=== PATIENT | female | born 1965 | race Caucasian/White ===

== ENCOUNTER 2018-01-31 15:28 | Emergency (ER) | payer BC ==
[2018-01-31] MEDS ORDERED: ASPIRIN 81 MG CHEWABLE TABLET ONE (16:42)
[2018-01-31] MEDS ORDERED: FENTANYL CITR 100 MCG/2 ML ONE (16:42)
[2018-01-31] MEDS ORDERED: ONDANSETRON 4 MG/2 ML VIAL ONE (16:43)
--- NOTE | 2018-01-31 16:44 | RAD REPORT ---
EXAM DESCRIPTION: RAD - Chest Single View - 01/31/2018 4:33 pm CLINICAL HISTORY: Chest pain. COMPARISON: None. FINDINGS: Portable technique limits examination quality. The lungs are grossly clear. The heart is normal in size. No displaced fractures. IMPRESSION: No acute intrathoracic process suspected.
[2018-01-31 16:56] LABS: Absolute Lymphocytes (CBC) 2.3 K/uL (0.7-4.9); Absolute Monocytes 0.7 K/uL (0.1-1.3); Absolute Neutrophil 9.5 K/uL (1.8-8.0); Basophils % 0.4 % (0-1.3); Eosinophils % 1.6 % (0-4.4); Hematocrit 43.8 % (36.0-45.0); Lymphocytes % 18.4 % (15.3-44.8); MCH 29.5 pg (27.0-35.0); MCV 87.5 fL (80-100); MPV 9.2 fL (7.6-11.3); Monocytes % 5.3 % (3.3-12.3); RBC Red Blood Cell Count 5.01 M/uL (3.86-4.86)
[2018-01-31 16:57] LABS: Protime INR 1.13
[2018-01-31 16:58] LABS: Glucose Level 186 mg/dL (65-120)
[2018-01-31 17:04] LABS: ALT/SGPT 28 IU/L (10-60); AST/SGOT 26 IU/L (10-42); Albumin 4.1 g/dL (3.2-5.5); Alkaline Phosphatase 101 IU/L (42-121); BUN Blood Urea Nitrogen 10 mg/dL (6-20); Bilirubin Direct 0.1 mg/dL (0-0.2); Bilirubin Total 0.6 mg/dL (0.3-1.2); Magnesium 1.8 mg/dL (1.8-2.5); Protein, Total 7.5 g/dL (6.0-8.3)
[2018-01-31 17:05] LABS: Bicarbonate 35 mEq/L (21-31); Sodium Level 136 mEq/L (135-145)
[2018-01-31 17:08] LABS: Potassium 2.9 mEq/L (3.6-5.0)
--- NOTE | 2018-01-31 18:57 | RAD REPORT ---
EXAM DESCRIPTION: CT - Angio Aorta For Dissection - 01/31/2018 6:48 pm CLINICAL HISTORY: Chest pain radiating to the back. COMPARISON: 04/10/2016 TECHNIQUE: CT angiography of the aorta was performed with volume rendering. All CT scans are performed using dose optimization technique as appropriate and may include automated exposure control or mA/KV adjustment according to patient size. FINDINGS: A left aortic arch is present with normal branching pattern of the great vessels.No acute aortic finding is seen such as aneurysm, penetrating ulcer or dissection. The celiac axis, SMA, MELISSA and renal arteries are widely patent. No evidence of pulmonary embolism. The lungs are clear. The liver demonstrates no focal mass or biliary dilatation.A diffuse fatty infiltration pattern is no marianna.The spleen, pancreas, adrenal glands and kidneys are within normal limits for arterial phase imag ing. No bowel obstruction, free fluid or abscess.Small fat containing umbilical hernia.No pathologic enlar ged lymphadenopathy identified. Mild to moderate degenerative change lower lumbar spine. IMPRESSION: No acute aortic finding is demonstrated. Diffuse fatty infiltration.
[2018-01-31] MEDS ORDERED: POTASSIUM CL SA 10 MEQ TAB PO ONE (19:11)
--- NOTE | 2018-01-31 19:38 | ER ---
Nurse's Notes [facility] Name: Lila Harry Age: 53 yrs Sex: Female : 1965 Arrival Date: 01/31/2018 Time: 15:29 Bed 25 Private MD: Diagnosis: Chest pain, unspecified Presentation: 01/31 15:35 Presenting complaint: Patient states: I have had chest pain since Thursday and now it is la1 getting worse, radiating to my back and left side. I was at the grocery store and became very diaphoretic and I have been nauseous. I have a family hx of aortic aneurysm. Transition of care: patient was not received from another setting of care. Onset of symptoms was January 31, 2018. Initial Sepsis Screen: Does the patient meet any 2 criteria? No. Patient's initial sepsis screen is negative. Does the patient have a suspected source of infection? No. Patient's initial sepsis screen is negative. Care prior to arrival: None. 15:35 Method Of Arrival: Ambulatory la1 15:35 Acuity: ANITA 2 la1 Historical: - Allergies: 15:37 Codeine (Upset stomach); la1 - PMHx: 15:37 Depression; Diabetes - NIDDM; GERD; Hypertension; la1 - Immunization history:: Adult Immunizations up to date. - Social history:: Smoking status: Patient/guardian denies using tobacco. Screenin:00 Abuse screen: Denies threats or abuse. Denies injuries from another. Nutritional kr2 screening: No deficits noted. Tuberculosis screening: No symptoms or risk factors identified. Fall Risk None identified. Assessment: 16:00 General: Appears in no apparent distress. comfortable, well groomed, well developed, kr2 well nourished, Behavior is calm, cooperative, appropriate for age. Pain: Complains of pain in chest Pain radiates to back Pain currently is 4 out of 10 on a pain scale. Quality of pain is described as aching, pressure, shooting, Pain began 2-3 days ago. Is continuous, Alleviated by nothing. Neuro: Level of Consciousness is awake, alert, obeys commands, Oriented to person, place, time, situation. Cardiovascular: Heart tones S1 S2 present Capillary refill < 3 seconds in bilateral fingers Patient's skin is warm and dry. Rhythm is sinus rhythm. Respiratory: Airway is patent Respiratory effort is even, unlabored, Respiratory pattern is regular, symmetrical. GI: Abdomen is round non-distended, Patient currently denies nausea. : No signs and/or symptoms were reported regarding the genitourinary system. Denies burning with urination. EENT: Nares are clear bilaterally Oral mucosa is moist. Derm: Skin is intact, is healthy with good turgor, Skin is pink, warm \T\ dry. Musculoskeletal: Circulation, motion, and sensation intact. 17:00 Reassessment: Patient appears in no apparent distress at this time. Patient and/or kr2 family updated on plan of care and expected duration. Pain level reassessed. Patient is alert, oriented x 3, equal unlabored respirations, skin warm/dry/pink. Patient states feeling better. Patient states symptoms have improved. 17:30 Reassessment: Bilateral upper extremity blood pressures obtained and results reported kr2 to LUIS Foley. See vital signs. 18:00 Reassessment: No changes from previously documented assessment. Reassessment: Patient kr2 appears in no apparent distress at this time. Patient and/or family updated on plan of care and expected duration. Pain level reassessed. Patient is alert, oriented x 3, equal unlabored respirations, skin warm/dry/pink. Patient states feeling better. 19:00 Reassessment: No changes from previously documented assessment. kr2 Vital Signs: 15:37 BP 134 / 85; Pulse 78; Resp 19; Temp 97.6(TE); Pulse Ox 100% on R/A; Weight 102.06 kg; la1 Height 5 ft. 3 in. (160.02 cm); 16:30 BP 134 / 62; Pulse 72; Resp 17; Pulse Ox 99% on R/A; kr2 17:30 BP 122 / 70 LA; kr2 17:30 BP 136 / 62 RA; kr2 18:30 BP 116 / 77; Pulse 72; Resp 17; Pulse Ox 98% on R/A; kr2 19:30 BP 120 / 78; Pulse 80; Resp 16; Pulse Ox 99% on R/A; kr2 15:37 Body Mass Index 39.86 (102.06 kg, 160.02 cm) la1 ED Course: 15:29 Patient arrived in ED. as 15:36 Triage completed. la1 15:37 Arm band placed on right wrist. la1 15:49 Florentin Bailey PA is PHCP. jr8 15:49 Emery Lerma MD is Attending Physician. jr8 16:00 Patient has correct armband on for positive identification. Bed in low position. Call kr2 light in reach. Side rails up X2. Adult w/ patient. athletic monitor on. Pulse ox on. NIBP on. Door closed. Warm blanket given. Head of bed elevated. 16:28 Karen Mae, MALLORY is Primary Nurse. kr2 16:32 X-ray completed. Portable x-ray completed in exam room. Patient tolerated procedure ag1 well. 16:33 XRAY Chest (1 view) In Process Unspecified. EDMS 16:38 Inserted saline lock: 22 gauge in left antecubital area, using aseptic technique. Blood kr2 collected. Patient maintains SpO2 saturation greater than 95% on room air. 18:47 CT Aorta for Dissection In Process Unspecified. EDMS 18:47 CT completed. Patient moved to CT via wheelchair. Patient moved back from CT. cw1 19:09 Repeat lab(s) drawn. by me, sent to lab. Flushed left antecubital saline lock with 5 ml kr2 normal saline. 19:52 No provider procedures requiring assistance completed. IV discontinued, intact, kr2 bleeding controlled, No redness/swelling at site. Pressure dressing applied. Administered Medications: 16:48 Drug: Zofran 4 mg Route: IVP; Site: left antecubital; kr2 17:55 Follow up: Response: No adverse reaction kr2 16:49 Drug: Aspirin Chewable Tablet 324 mg Route: PO; kr2 17:56 Follow up: Response: No adverse reaction kr2 16:49 Drug: fentaNYL (PF) 50 mcg Route: IVP; Site: left antecubital; kr2 17:56 Follow up: Response: No adverse reaction; Pain is decreased kr2 19:13 Drug: Potassium Chloride 40 mEq Route: PO; kr2 19:38 Follow up: Response: No adverse reaction kr2 Outcome: 19:38 Discharge ordered by . jr8 19:52 Discharged to home ambulatory. kr2 19:52 Condition: good 19:52 Discharge instructions given to patient, family, Instructed on discharge instructions, follow up and referral plans. Demonstrated understanding of instructions, follow-up care. 19:59 Patient left the ED. kr2 Signatures: Dispatcher [employer] Katie Linda, Marita cw1 Florentin Bailey PA PA jr8 Osbaldo Child RN RN andrew1 Deepti Baltazar ag1 Karen Mae RN RN kr2
--- NOTE | 2018-01-31 19:38 | EDPHYS ---
Physician Documentation [facility] Name: Lila Harry Age: 53 yrs Sex: Female : 1965 Arrival Date: 01/31/2018 Time: 15:29 Bed 25 Private MD: ED Physician Emery Lerma HPI: 01/31 17:05 This 53 yrs old Female presents to ER via Ambulatory with complaints of Chest jr8 Pain. 17:05 The patient or guardian reports chest pain that is located primarily in the substernal jr8 area. Onset: acutely, 2 day(s) ago. The pain radiates to back. Associated signs and symptoms: Pertinent positives: diaphoresis, nausea. The chest pain is described as a pressure. Duration: The patient or guardian reports a single episode, that is still ongoing. Modifying factors: The symptoms are alleviated by rest, the symptoms are aggravated by exertion. Severity of pain: At its worst the pain was moderate in the emergency department the pain is unchanged. The patient has not experienced similar symptoms in the past. The patient has not recently seen a physician. Historical: - Allergies: 15:37 Codeine (Upset stomach); la1 - PMHx: 15:37 Depression; Diabetes - NIDDM; GERD; Hypertension; la1 - Immunization history:: Adult Immunizations up to date. - Social history:: Smoking status: Patient/guardian denies using tobacco. ROS: 17:05 ENT: Negative for injury, pain, and discharge, Neck: Negative for injury, pain, and jr8 swelling, Respiratory: Negative for shortness of breath, cough, wheezing, and pleuritic chest pain, Abdomen/GI: Negative for abdominal pain, nausea, vomiting, diarrhea, and constipation, Back: Negative for injury and pain, MS/Extremity: Negative for injury and deformity, Skin: Negative for injury, rash, and discoloration, Neuro: Negative for headache, weakness, numbness, tingling, and seizure. 17:05 Cardiovascular: Positive for chest pain, Negative for edema, orthopnea, palpitations, paroxysmal nocturnal dyspnea. Exam: 17:05 Eyes: Pupils equal round and reactive to light, extra-ocular motions intact. Lids and jr8 lashes normal. Conjunctiva and sclera are non-icteric and not injected. Cornea within normal limits. Periorbital areas with no swelling, redness, or edema. ENT: Nares patent. No nasal discharge, no septal abnormalities noted. Tympanic membranes are normal and external auditory canals are clear. Oropharynx with no redness, swelling, or masses, exudates, or evidence of obstruction, uvula midline. Mucous membranes moist. Neck: Trachea midline, no thyromegaly or masses palpated, and no cervical lymphadenopathy. Supple, full range of motion without nuchal rigidity, or vertebral point tenderness. No Meningismus. Cardiovascular: Regular rate and rhythm with a normal S1 and S2. No gallops, murmurs, or rubs. Normal PMI, no JVD. No pulse deficits. Respiratory: Lungs have equal breath sounds bilaterally, clear to auscultation and percussion. No rales, rhonchi or wheezes noted. No increased work of breathing, no retractions or nasal flaring. Abdomen/GI: Soft, non-tender, with normal bowel sounds. No distension or tympany. No guarding or rebound. No evidence of tenderness throughout. Back: No spinal tenderness. No costovertebral tenderness. Full range of motion. Skin: Warm, dry with normal turgor. Normal color with no rashes, no lesions, and no evidence of cellulitis. MS/ Extremity: Pulses equal, no cyanosis. Neurovascular intact. Full, normal range of motion. Neuro: Awake and alert, GCS 15, oriented to person, place, time, and situation. Cranial nerves II-XII grossly intact. Motor strength 5/5 in all extremities. Sensory grossly intact. Cerebellar exam normal. Normal gait. Vital Signs: 15:37 BP 134 / 85; Pulse 78; Resp 19; Temp 97.6(TE); Pulse Ox 100% on R/A; Weight 102.06 kg; la1 Height 5 ft. 3 in. (160.02 cm); 16:30 BP 134 / 62; Pulse 72; Resp 17; Pulse Ox 99% on R/A; kr2 17:30 BP 122 / 70 LA; kr2 17:30 BP 136 / 62 RA; kr2 18:30 BP 116 / 77; Pulse 72; Resp 17; Pulse Ox 98% on R/A; kr2 19:30 BP 120 / 78; Pulse 80; Resp 16; Pulse Ox 99% on R/A; kr2 15:37 Body Mass Index 39.86 (102.06 kg, 160.02 cm) la1 MDM: 15:49 Patient medically screened. jr8 19:36 The patient was given aspirin in the Emergency Department. Data reviewed: vital signs, [facility] nurses notes, lab test result(s), EKG, radiologic studies, CT scan, plain films, and as a result, I will discharge patient. Data interpreted: Pulse oximetry: on room air is 100 %. Interpretation: normal. Counseling: I had a detailed discussion with the patient and/or guardian regarding: the historical points, exam findings, and any diagnostic results supporting the discharge/admit diagnosis, lab results, radiology results, the need for outpatient follow up, a rn outpatient surgery, a family practitioner, to return to the emergency department if symptoms worsen or persist or if there are any questions or concerns that arise at home. 19:38 ED course: Patient has appointment with cardiology tomorrow . [facility] 01/31 16:04 Order name: Basic Metabolic Panel [facility] 01/31 16:04 Order name: BNP [facility] 01/31 16:04 Order name: CBC with Diff [facility] 01/31 16:04 Order name: LFT's [facility] 01/31 16:04 Order name: Magnesium; Complete Time: 17:17 [facility] 01/31 16:04 Order name: PT-INR; Complete Time: 17:00 [facility] 01/31 16:04 Order name: Troponin (emerg Dept Use Only); Complete Time: 17:17 [facility] 01/31 16:04 Order name: XRAY Chest (1 view); Complete Time: 17:00 [facility] 01/31 16:04 Order name: Basic Metabolic Panel; Complete Time: 17:17 [facility] 01/31 16:04 Order name: BNP B-Type Natriuretic Peptide; Complete Time: 17:17 [facility] 01/31 16:04 Order name: CBC with Automated Diff; Complete Time: 17:00 [facility] 01/31 16:04 Order name: Liver (Hepatic) Function; Complete Time: 17:17 [facility] 01/31 17:51 Order name: CT Aorta for Dissection; Complete Time: 18:59 [facility] 01/31 19:00 Order name: Troponin (emerg Dept Use Only); Complete Time: 19:34 [facility] 01/31 16:04 Order name: Cardiac monitoring; Complete Time: 16:28 [facility] 01/31 16:04 Order name: EKG - Nurse/Tech; Complete Time: 16:28 jr8 01/31 16:04 Order name: IV Saline Lock; Complete Time: 16:41 8 01/31 16:04 Order name: Labs collected and sent; Complete Time: 16:41 jr8 01/31 16:04 Order name: O2 Per Protocol; Complete Time: 16:28 8 01/31 16:04 Order name: O2 Sat Monitoring; Complete Time: 16: jr8 Administered Medications: 16:48 Drug: Zofran 4 mg Route: IVP; Site: left antecubital; kr2 17:55 Follow up: Response: No adverse reaction kr2 16:49 Drug: Aspirin Chewable Tablet 324 mg Route: PO; kr2 17:56 Follow up: Response: No adverse reaction kr2 16:49 Drug: fentaNYL (PF) 50 mcg Route: IVP; Site: left antecubital; kr2 17:56 Follow up: Response: No adverse reaction; Pain is decreased kr2 19:13 Drug: Potassium Chloride 40 mEq Route: PO; kr2 19:38 Follow up: Response: No adverse reaction kr2 Disposition: 02/01 09:16 Co-signature as Attending Physician, Emery Lerma MD I agree with the assessment and brianna plan of care. Disposition: 01/31/18 19:38 Discharged to Home. Impression: Chest pain, unspecified. - Condition is Stable. - Discharge Instructions: Nonspecific Chest Pain, Aspirin and Your Heart. - Medication Reconciliation Form, Thank You Letter, Antibiotic Education, Prescription Opioid Use form. - Follow up: Private Physician; When: Tomorrow; Reason: Recheck today's complaints, Continuance of care, Re-evaluation by your physician. - Problem is new. - Symptoms have improved. Signatures: Dispatcher [employer] [facility] Emery Lerma MD MD cha Roszak, Josh, PA PA jr8 Osbaldo Child RN RN andrew1 Karen Mae RN RN kr2 Corrections: (The following items were deleted from the chart) 01/31 19:38 16:04 Urine Dipstick-Ancillary ordered. jr8 kr2
--- NOTE | 2018-02-01 07:04 | EKG ---
Test Date: 2018-01-31 Test Time: 15:50:20 Belt Maker Helper: JANNIE MEASUREMENT RESULTS: Intervals: Rate: 71 WA: 154 QRSD: 88 QT: 400 QTc: 434 [place]: P: 27 WA: 154 QRS: 18 T: 25 INTERPRETIVE STATEMENTS: Normal sinus rhythm Normal ECG No previous ECG available for comparison Electronically Signed On 02-01-18 07:04:06 CDT by Mitchel Key
== END 2018-01-31 19:59 | disposition home or self-care (01) ==
LOC: ER 15:28
DX: R07.9 Chest pain, unspecified (principal); I10 Essential (primary) hypertension; Z88.5 Allergy status to narcotic agent
CPT/HCPCS: 36415; 71045; 71275; 74175; 80048; 80076; 83735; 83880; 84484; 85025; 85610; 93005; 96374; 96375; 99285; J2405; J3010; Q9967

== ENCOUNTER 2023-04-23 10:03 | Emergency (ER) | payer BC, OTHER ==
--- OUTSIDE RECORDS SUMMARY | 2023-04-23 10:12 | XMS REPORT | Continuity of Care Document ---
:1965 Author Organization [facility] t Address [address] [address] [place] [address] Care Team Providers Name Role Phone Jake Navarrete MD Primary Care Physician DADA TATE Attending Clinician Unavailable LAB47 Attending Clinician Unavailable FELI MORAN Attending Clinician Unavailable MD KALEY Attending Clinician Unavailable 1, [facility]HER[facility] TOMOGRAPHY Attending Clinician UnavailJESSICA Henry Attending Clinician Unavailable Jake Navarrete MD Attending Clinician [facility] Attending Clinician Unavailable DEMARCUS COOK Attending Clinician Unavailable Doctor Unassigned, Hilger Attending Clinician Unavailable JAKE NAVARRETE Attending Clinician Unavailable LEEROY RG Attending Clinician Unavailable Mercedes Hurley Attending Clinician MERCEDES DAVID Attending Clinician Unavailable MARICEL GALLAGHER Attending Clinician Unavailable Maricel Gallagher MD Attending Clinician Only, Ang Db Test Attending Clinician Unavailable Dawn Miller Attending Clinician DAWN ROOT Attending Clinician Unavailable Franny Rubio RN Attending Clinician Unavailable Only, Adc Pob2 Test Attending Clinician Unavailable Dion Dahl MD Attending Clinician AJAY PADILLA Attending Clinician Unavailable Unknown, Attending Attending Clinician Unavailable Ajay Alvarado Attending Clinician Valentin Tan DO Attending Clinician VALENTIN TAN Attending Clinician Unavailable Hamilton Lorenz MD Attending Clinician Lab, Ang - Db Attending Clinician Unavailable Kate TEJADA, Rachel Ledesma Attending Clinician Unavailable Renee Mcfarland Attending Clinician RENEE BENNETT Attending Clinician Unavailable HEBERT GOMEZ Attending Clinician Unavailable HEBERT GOMEZ Attending Clinician Unavailable Vamsi Gilmore MD Attending Clinician Angelia [facility] DISPATCHERGallo Stevenson Attending Clinician GALLO STILL Attending Clinician Unavailable Lab, Adc Fam Pob I Attending Clinician Unavailable Pob, Adc Lab Main Attending Clinician Unavailable GOMEZ LATHAM Attending Clinician Unavailable GOMEZ LATHAM Attending Clinician Unavailable 1, [facility] Lab Bed Attending Clinician Unavailable Gomez Latham MD Attending Clinician DERICK FLORES Attending Clinician Unavailable Violette Garay Attending Clinician Provider, [facility] Attending Clinician Unavailable Amaury Callaway MD Attending Clinician AMAURY CALLAWAY Attending Clinician Unavailable [facility] Attending Clinician Unavailable DION DAHL Attending Clinician Unavailable HAMILTON LORENZ Attending Clinician Unavailable DADA TATE Admitting Clinician Unavailable Vamsi Gilmore MD Admitting Clinician Payers Payer Name Policy Type Policy Number Effective Date Expiration Date S elida [facility] [id number] 2015 EMPLOYEE PLAN 00:00:00 [facility] 2020 9 [id number] 2022 00:00:00 Problems Condition Condition Condition Status Onset Resolution Last Treating Co mments Source Name Details Category Date Date Treatment Clinician Date Irritable Irritable Disease Active Uni vers bowel bowel 8- ity of syndrome syndrome 00:00: [place] with with 00 Medical diarrhea diarrhea Branch Internal Internal Disease Active Unive rs hemorrhoid hemorrhoid 8-27 it y of 00:00: [place] 00 Medical Branch Diverticul Diverticul Disease Active U teetee osis osis 8-27 ity of 00:00: [place] 00 Medical Branch Polyp of Polyp of Disease Active Unive rs colon, colon, 8-27 ity of unspecifie unspecif[place] of 00 Medi michell colon, colon, Branch unspecifie unspecifie d type d type Lower Lower Disease Active Univers abdominal abdominal 3-12 ity of pain pain 00:00: [place] 00 Medical Branch Fecal Fecal Disease Active Univers urgency urgency 3-12 ity of 00:00: [place] [facility] Gastroesop Gastroesop Disease Active U teetee hageal hageal 3-12 ity of reflux reflux 00:00: [place] disease disease 00 Medical without without Branch esophagiti esophagiti s s DANIELLE DANIELLE Disease Active Univers (obstructi (obstructi 1-31 it y of ve sleep ve sleep 00:00: [place] apnea) apnea) 00 Medical Branch Atypical Atypical Disease Active Unive rs chest pain chest pain 7-18 it y of 00:00: [place] 00 Medical Branch Obesity Obesity Disease Active Univers (BMI (BMI 7-18 ity of 30-39.9) 30-39.9) 00:00: [place] 00 Medical Branch Fatty Fatty Disease Active 2016-10 Univers liver liver 1- ity of 00:00: [place] 00 Medical Branch Hepatosple Hepatosple Disease Active U teetee nomegaly nomegaly 6-30 ity of 00:00: [place] [facility] Hypokalemi Hypokalemi Disease Active U sidneyers a a 6-22 ity of 00:00: [place] 00 Medical Branch Drug-induc Drug-induc Disease Active Overview : Univers ed ed 6-22 Formattin ity of pancreatit pancreatit 00:00: g of this [place] is is 00 note Medical might be Branch different from the original. From Saxenda DDD DDD Disease Active Univers (degenerat (degenerat 2- it y of varsha disc varsha disc 00:00: [place] disease), disease), 00 Medi michell cervical cervical Branch Degenerati Degenerati Disease Active 2017-0 U nivers ve ve 2- ity of arthritis arthritis 00:[place] cervical cervical Branch spine spine Drug-induc Drug-induc Disease Active 2015-10 Overview : Univers ed ed 2-16 Formattin ity of constipati constipati 00:00: g of this [place] on on 00 note Medical might be Branch different from the original. secondary to Saxenda Post-op Post-op Disease Active Univers pain pain 912 ity of 00:00: Medical Branch Type 2 Type 2 Disease Active Univers diabetes diabetes 906 ity of mellitus mellitus 00:00: [place] without without 00 Medical complicati complicati Br anch on on Absence of Absence of Disease Active U nivers menstruati menstruati 8-19 it y of on on 00:00: [place] [facility] Ovarian Ovarian Disease Active Univers mass mass 8- ity of 00:00: [place] [facility] Screening Screening Disease Active Uni vers for colon for colon 8 ity of cancer cancer 00:00: [place] [facility] Essential Essential Disease Active Uni vers hypertensi hypertensi 8-11 it y of on, benign on, benign [place] Diuretic-i Diuretic-i Disease Active U nivers nduced nduced ity of hypokalemi [place]emi [place] Depression Depression Disease Active U nivers ity of [facility] Allergies, Adverse Reactions, Alerts Allergy Allergy Status Severity Reaction(s) Onset Inactive Treating Comm ents Source Name Type Date Date Clinician LISINOPR DRUG Active COUGH Univers IL INGREDI 6 ity of 00:00: [place] 00 Medical Branch Lisinopr Drug Active Cough Univers il Intolera 04-08 ity of nce 00:00: [place] [facility] Lisinopr Drug Active Cough Alejandra il Intolera 6 Seybold nce 00:00: 00 Externa l LIRAGLUT DRUG Active Other-Cmnt Univ ers EDUARDO INGREDI 04-02 ity of 00:00: [place] 00 Medical Branch Liraglut Propensi Active Other - See pancreat i Univers eduardo ty to comments 04-02 tis ity of adverse 00:00: [place] reaction 00 Medical s Branch Liraglut Propensi Active Other pancreati Marky sey eduardo ty to 04-02 tis Seybold adverse 00:00: - reaction 00 Externa s l CODEINE DRUG Active N/V Univers INGREDI 8 ity of 00:00: [place] 00 Medical Branch LATEX DRUG Active Rash Univers INGREDI 06-01 ity of 00:00: [place] 00 Medical Branch SULFA Drug Active ITCHING Univers (SULFONA Class 06-01 ity of MIDE 00:00: [place] ANTIBIOT 00 Medical ICS) Branch Latex Propensi Active Rash Univers ty to 06-01 ity of adverse 00:00: [place] reaction 00 Medical s Branch Sulfa Propensi Active Itching Univers (Sulfona ty to 06-01 ity of mide adverse 00:00: [place] Antibiot reaction 00 Medica l ics) s Branch Codeine Propensi Active Nausea and Marky sey ty to Vomiting 06-01 Seybold adverse 00:00: - reaction 00 Externa s l Latex Propensi Active Rash Alejandra ty to 06-01 Seybold adverse 00:00: - reaction 00 Externa s l Sulfa Propensi Active Itching Alejandra Drugs ty to 06-01 Seybold adverse 00:00: - reaction 00 Externa s l Social History Social Habit Start Date Stop Date Quantity Comments Source Gender identity 2023-03-06 Identifies as Alejandra Piper - 09:21:36 female gender External (finding) Sexual orientation 2023-03-06 Heterosexual Ivy Reynosoold - 09:21:36 (finding) External Alcohol intake 2023-04-22 2023-04-22 Ex-drinker Alejandra Roldan bold - 00:00:00 00:00:00 (finding) External Tobacco use and 2023-01-08 2023-01-08 Smokeless tobacco Ke ashley Reynosoold - exposure 00:00:00 00:00:00 non-user External History of Social 2023-01-08 2023-01-08 Alejandra Piper - function 00:00:00 00:00:00 External Exposure to 2022-07-01 2022-07-11 Not sure University of SARS-CoV-2 (event) 00:00:00 09:18:00 [facility] Sex [birth year] F Alejandra Vance ybold - 00:00:00 00:00:00 External Smoking Status Start Date Stop Date Source Never smoked tobacco Alejandra Seyb old - External Medications Ordered Filled Start Stop Current Ordering Indication Dosage Frequency Signature Comments Components Source Medication Medication Date Date Medication? Clinician (SIG) Name Name Ibuprofen 0 Yes 200mg Q.25D Take 1 Ivy ey (MOTRIN) 7-12 tablet Seybold 200 MG oral 13:33: (200 mg - Tablet 53 total) by Externa mouth l every 6 hours as needed Levocetiriz 2022-0 Yes Alejandra ine 7-12 Seybold Dihydrochlo 13:33: - ride 5 MG 53 Externa oral Tablet l Venlafaxine 2022-0 Yes [id number] 100mg Take 1 K elsey HCl 100 MG 7-12 tablet Seybold oral Tablet 00:00: (100 mg - 00 total) by Externa mouth 2 l times daily Metoprolol 0 Yes [id number] 50mg Take 1 K elsey Tartrate 7-10 tablet (50 Seybo ld (LOPRESSOR) 00:00: mg total) - 50 MG oral 00 by mouth 2 Ext yeyo Tablet times l daily Venlafaxine 2022-0 2022- No 75mg Take 1 Marky sey HCl 75 MG 7-10 07-12 tablet (75 Sey bold oral Tablet 00:00: 00:00 mg total) - 00 :00 by mouth 2 Externa times l daily Ibuprofen 2022-0 Yes 200mg Q.25D Take 1 Ivy ey (MOTRIN) 5-26 tablet Seybold 200 MG oral 10:55: (200 mg - Tablet 54 total) by Externa mouth l every 6 hours as needed Levocetiriz 2022-0 Yes Alejandra ine 5-26 Seybold Dihydrochlo 10:55: - ride 5 MG 54 Externa oral Tablet l Rosuvastati 2022-0 Yes 10mg Take 1 Ivy ey n Calcium 5-15 tablet (10 Seyb old 10 MG oral 00:00: mg total) - Tablet 00 by mouth Externa at bedtime l Rosuvastati 2022-0 Yes 10mg Take 1 Ivy ey n Calcium 5-15 tablet (10 Seyb old 10 MG oral 00:00: mg total) - Tablet 00 by mouth Externa at bedtime l Ibuprofen 2022-0 Yes 200mg Q.25D Take 200 Ke lsey (MOTRIN) 3-30 mg by Seybold 200 MG oral 10:37: mouth - Tablet 22 every 6 Externa hours as l needed Levocetiriz 2022-0 Yes Alejandra ine 3-30 Seybold Dihydrochlo 10:37: - ride 5 MG 22 Externa oral Tablet l B Complex 2022-0 Yes Alejandra Vitamins (B 3-12 Seybold COMPLEX 1 00:00: - OR) 00 Externa l Pyridoxine 2022-0 Yes Alejandra HCl 3-12 Seybold (Vitamin 00:00: - B-6) 100 MG 00 Externa oral Tablet l B Complex 2022-0 Yes Alejandra Vitamins (B 3-12 Seybold COMPLEX 1 00:00: - OR) 00 Externa l Pyridoxine 2022-0 Yes Alejandra HCl 3-12 Seybold (Vitamin 00:00: - B-6) 100 MG 00 Externa oral Tablet l B Complex 2022-0 Yes Alejandra Vitamins (B 3-12 Seybold COMPLEX 1 00:00: - OR) 00 Externa l Pyridoxine 2022-0 Yes Alejandra HCl 3-12 Seybold (Vitamin 00:00: - B-6) 100 MG 00 Externa oral Tablet l hydroCHLORO 2022-0 Yes 25mg Take 1 Ivy ey thiazide 25 2-08 tablet (25 Se ybold MG oral 00:00: mg total) - Tablet 00 by mouth Externa daily l hydroCHLORO 2022-0 Yes 1{tbl} Take 1 Ke lsey thiazide 25 2-08 tablet by Sey bold MG oral 00:00: mouth - Tablet 00 daily Externa l hydroCHLORO 2022-0 Yes 25mg Take 1 Ivy ey thiazide 25 2-08 tablet (25 Se ybold MG oral 00:00: mg total) - Tablet 00 by mouth Externa daily l HYDROCHLORO 2022-0 Yes [id number] TAKE 1 U nivers THIAZIDE 25 2-08 TABLET ity of mg tablet 00:00: DAILY [address] PROMETHAZIN 2022-0 Yes [id number] TAKE FIVE Univers E-DEXTROMET 1-10 (5) ML(S) ity of [place] 00:00: [place] 4 [place] 6.25[place] TIMES Medical mg/5 mL DAILY Branch syrup NEEDED FOR COUGH. PROMETHAZIN Yes [id number] TAKE FIVE Univers E-DEXTROMET 1-10 (5) ML(S) ity of HORPHAN 00:00: [place]TH 4 [place] 6.25-[place] TIMES Medical mg/5 mL DAILY Branch syrup NEEDED FOR COUGH. glimepiride 2021-10 Yes [id number] 2mg Take 1 Univers (AMARYL) 2 2-29 tablet by ity of mg tablet 00:00: mouth [place] 00 daily with Medical breakfast. Branch glimepiride 2021-10 Yes [id number] 2mg Take 1 Univers (AMARYL) 2 2-29 tablet by ity of mg tablet 00:00: mouth [place] 00 daily with Medical breakfast. Branch glimepiride 2021-10 Yes [id number] 2mg Take 1 Univers (AMARYL) 2 2-29 tablet by ity of mg tablet 00:00: mouth [place] 00 daily with Medical breakfast. Branch Losartan 2021-10 Yes 25mg Take 1 Alejandra Potassium 2-27 tablet (25 Seyb old 25 MG oral 00:00: mg total) - Tablet 00 by mouth Externa daily l Losartan 2021-10 Yes 25mg Take 25 mg Marky sey Potassium 2-27 by mouth Seybol d 25 MG oral 00:00: daily - Tablet 00 Externa l Losartan 2021-10 Yes 25mg Take 1 Alejandra Potassium 2-27 tablet (25 Seyb old 25 MG oral 00:00: mg total) - Tablet 00 by mouth Externa daily l losartan 2021-10 Yes [id number] 25mg Take 1 Univers mg tablet 2-27 tablet by ity o f 00:00: mouth in [place] the Medical morning. Branch losartan 2021-10 Yes [id number] 25mg Take 1 Univers mg tablet 2-27 tablet by ity o f 00:00: mouth in [place] the Medical morning. Branch losartan 2021-10 Yes [id number] 25mg Take 1 Univers mg tablet 2-27 tablet by ity o f 00:00: mouth in [place] 00 the Medical morning. Branch losartan 2021-10 Yes [id number] 25mg Take 1 Univers mg tablet 2-27 tablet by ity o f 00:00: mouth in [place] 00 the Medical morning. Branch LOSARTAN 25 2021-10 Yes [id number] TAKE 1 Univers mg tablet 1-10 TABLET ity of 00:00: DAILY [place] 00 Medical Branch LOSARTAN 25 2021-10- No [id number] TAKE 1 Univers mg tablet 1-10 12-25 TABLET ity of 00:00: 00:00 DAILY [place] 00 :00 Medical Branch promethazin 2021-10 Yes [id number] 5mL Take 5 mL Univers e-dextromet 0-20 by mouth 4 it y of horphan 00:00: (four) [place] 6.25-15 00 times Medical mg/5 mL daily as Branch syrup needed for Cough. ciprofloxac 2021-10 Yes [id number] 500mg Take 1 Univers in HCl 0-20 tablet by ity of (CIPRO) 500 00:00: mouth [place] mg tablet 00 every 12 Medica l (twelve) Branch hours. predniSONE 2021-10 Yes [id number] 20mg Take 1 U nivers 20 mg 0-20 tablet by ity of tablet 00:00: mouth in [place] the Medical morning. Branch promethazin 2021-10 Yes [id number] 5mL Take 5 mL Univers e-dextromet 0-20 by mouth 4 it y of horphan 00:00: (four) [place] 6.25-15 00 times Medical mg/5 mL daily as Branch syrup needed for Cough. ciprofloxac 2021-10 Yes [id number] 500mg Take 1 Univers in HCl 0-20 tablet by ity of (CIPRO) 500 00:00: mouth [place] mg tablet 00 every 12 Medica l (twelve) Branch hours. predniSONE 2021-10 Yes [id number] 20mg Take 1 U nivers 20 mg 0-20 tablet by ity of tablet 00:00: mouth in [place] 00 the Medical morning. Branch promethazin 2021-10 Yes [id number] 5mL Take 5 mL Univers e-dextromet 0-20 by mouth 4 it y of horphan 00:00: (four) [place] 6.25-15 00 times Medical mg/5 mL daily as Branch syrup needed for Cough. ciprofloxac 2021-10 Yes [id number] 500mg Take 1 Univers in HCl 0-20 tablet by ity of (CIPRO) 500 00:00: mouth [place] mg tablet 00 every 12 Medica l (twelve) Branch hours. predniSONE 2021- Yes [id number] 20mg Take 1 U nivers 20 mg 0-20 tablet by ity of tablet 00:00: mouth in [place] 00 the Medical morning. Branch promethazin 2021-10 Yes [id number] 5mL Take 5 mL Univers e-dextromet 0-20 by mouth 4 it y of horphan 00:00: (four) [place] 6.25-15 00 times Medical mg/5 mL daily as Branch syrup needed for Cough. ciprofloxac 2021-10 Yes [id number] 500mg Take 1 Univers in HCl 0-20 tablet by ity of (CIPRO) 500 00:00: mouth [place] mg tablet 00 every 12 Medica l (twelve) Branch hours. predniSONE 2021- Yes [id number] 20mg Take 1 U nivers 20 mg 0-20 tablet by ity of tablet 00:00: mouth in [place] 00 the Medical morning. Branch promethazin 2021-10 Yes [id number] 5mL Take 5 mL Univers e-dextromet 0-20 by mouth 4 it y of horphan 00:00: (four) [place] 6.25-15 00 times Medical mg/5 mL daily as Branch syrup needed for Cough. ciprofloxac 2021-10 Yes [id number] 500mg Take 1 Univers in HCl 0-20 tablet by ity of (CIPRO) 500 00:00: mouth [place] mg tablet 00 every 12 Medica l (twelve) Branch hours. predniSONE 2021- Yes [id number] 20mg Take 1 U nivers 20 mg 0-20 tablet by ity of tablet 00:00: mouth in [place] 00 the Medical morning. Branch promethazin 2021-10 Yes [id number] 5mL Take 5 mL Univers e-dextromet 0-20 by mouth 4 it y of horphan 00:00: (four) [place] 6.25-15 00 times Medical mg/5 mL daily as Branch syrup needed for Cough. ciprofloxac 2021-10 Yes [id number] 500mg Take 1 Univers in HCl 0-20 tablet by ity of (CIPRO) 500 00:00: mouth [place] mg tablet 00 every 12 Medica l (twelve) Branch hours. predniSONE 2021- Yes [id number] 20mg Take 1 U nivers 20 mg 0-20 tablet by ity of tablet 00:00: mouth in [place] 00 the Medical morning. Branch promethazin 2021-10 Yes [id number] 5mL Take 5 mL Univers e-dextromet 0-20 by mouth 4 it y of horphan 00:00: (four) [place] 6.25-15 00 times Medical mg/5 mL daily as Branch syrup needed for Cough. ciprofloxac 2021-10 Yes [id number] 500mg Take 1 Univers in HCl 0-20 tablet by ity of (CIPRO) 500 00:00: mouth [place] mg tablet 00 every 12 Medica l (twelve) Branch hours. predniSONE 2021-10 Yes [id number] 20mg Take 1 U nivers 20 mg 0-20 tablet by ity of tablet 00:00: mouth in [place] 00 the Medical morning. Branch ciprofloxac 2021-10 Yes [id number] 500mg Take 1 Univers in HCl 0-20 tablet by ity of (CIPRO) 500 00:00: mouth [place] mg tablet 00 every 12 Medica l (twelve) Branch hours. predniSONE 2021-10 Yes [id number] 20mg Take 1 U nivers 20 mg 0-20 tablet by ity of tablet 00:00: mouth in [place] 00 the Medical morning. Branch ciprofloxac 2021-10 Yes [id number] 500mg Take 1 Univers in HCl 0-20 tablet by ity of (CIPRO) 500 00:00: mouth [place] mg tablet 00 every 12 Medica l (twelve) Branch hours. predniSONE 2021-10 Yes [id number] 20mg Take 1 U nivers 20 mg 0-20 tablet by ity of tablet 00:00: mouth in [place] 00 the Medical morning. Branch promethazin 2021-103- No [id number] 5mL Take 5 mL Univers e-dextromet 0-20 01-10 by mouth 4 i ty of horphan 00:00: 00:00 (four) [place] 6.25-15 00 :00 times Medical mg/5 mL daily as Branch syrup needed for Cough. predniSONE Yes [id number] Take two Univers 20 mg 9-30 tabs for ity of tablet 00:00: three [place] 00 days, take Medical one tab Branch for three days predniSONE 2021-0 Yes [id number] Take two Univers 20 mg 9-30 tabs for ity of tablet 00:00: three 00 days, take Medical one tab Branch for three days predniSONE 2021-0 Yes [id number] Take two Univers 20 mg 9-30 tabs for ity of tablet 00:00: three [place] days, take Medical one tab Branch for three days predniSONE 2021-0 Yes [id number] Take two Univers 20 mg 9-30 tabs for ity of tablet 00:00: three [place] days, take Medical one tab Branch for three days predniSONE 2021-0 Yes [id number] Take two Univers 20 mg 9-30 tabs for ity of tablet 00:00: three [place] days, take Medical one tab Branch for three days predniSONE 2021-0 Yes [id number] Take two Univers 20 mg 9-30 tabs for ity of tablet 00:00: three [place] days, take Medical one tab Branch for three days predniSONE 2021-0 Yes [id number] Take two Univers 20 mg 9-30 tabs for ity of tablet 00:00: three [place] days, take Medical one tab Branch for three days predniSONE 2021-0 Yes [id number] Take two Univers 20 mg 9-30 tabs for ity of tablet 00:00: three [place] days, take Medical one tab Branch for three days predniSONE 2021-0 Yes [id number] Take two Univers 20 mg 9-30 tabs for ity of tablet 00:00: three [place] days, take Medical one tab Branch for three days predniSONE 2021-0 Yes [id number] Take two Univers 20 mg 9-30 tabs for ity of tablet 00:00: three [place] days, take Medical one tab Branch for three days predniSONE 2021-0 Yes [id number] Take two Univers 20 mg 9-30 tabs for ity of tablet 00:00: three [place] days, take Medical one tab Branch for three days predniSONE 2021-0 Yes [id number] Take two Univers 20 mg 9-30 tabs for ity of tablet 00:00: three [place] days, take Medical one tab Branch for three days albuterol 2021-0 Yes [id number] 2{puff} Inhale 2 Univers 90 9-23 Puffs ity of mcg/actuati 00:00: every 6 Loc as on inhaler 00 (six) Medical hours as Branch needed for Wheezing or Bronchospa sm. methylPREDN Yes [id number] Take by Univers ISolone 4 9-23 mouth ity of mg tablets 00:00: [place]-INSTRU [place] CTIONS. Medical follow Branch package directions albuterol Yes [id number] 2{puff} Inhale 2 Univers 90 9-23 Puffs ity of mcg/actuati 00:00: every 6 Loc as on inhaler 00 (six) Medical hours as Branch needed for Wheezing or Bronchospa sm. methylPREDN Yes [id number] Take by Univers ISolone 4 9-23 mouth ity of mg tablets 00:00: [place]-INSTRU [place] 00 CTIONS. Medical follow Branch package directions albuterol Yes [id number] 2{puff} Inhale 2 Univers 90 9-23 Puffs ity of mcg/actuati 00:00: every 6 Loc as on inhaler 00 (six) Medical hours as Branch needed for Wheezing or Bronchospa sm. albuterol Yes [id number] 2{puff} Inhale 2 Univers 90 9-23 Puffs ity of mcg/actuati 00:00: every 6 Loc as on inhaler 00 (six) Medical hours as Branch needed for Wheezing or Bronchospa sm. albuterol Yes [id number] 2{puff} Inhale 2 Univers 90 9-23 Puffs ity of mcg/actuati 00:00: every 6 Loc as on inhaler 00 (six) Medical hours as Branch needed for Wheezing or Bronchospa sm. albuterol Yes [id number] 2{puff} Inhale 2 Univers 90 9-23 Puffs ity of mcg/actuati 00:00: every 6 Loc as on inhaler 00 (six) Medical hours as Branch needed for Wheezing or Bronchospa sm. albuterol 0 Yes [id number] 2{puff} Inhale 2 Univers 90 9-23 Puffs ity of mcg/actuati 00:00: every 6 Loc as on inhaler 00 (six) Medical hours as Branch needed for Wheezing or Bronchospa sm. albuterol 0 Yes [id number] 2{puff} Inhale 2 Univers 90 9-23 Puffs ity of mcg/actuati 00:00: every 6 Loc as on inhaler 00 (six) Medical hours as Branch needed for Wheezing or Bronchospa sm. albuterol Yes [id number] 2{puff} Inhale 2 Univers 90 9-23 Puffs ity of mcg/actuati 00:00: every 6 Loc as on inhaler 00 (six) Medical hours as Branch needed for Wheezing or Bronchospa sm. albuterol Yes [id number] 2{puff} Inhale 2 Univers 90 9-23 Puffs ity of mcg/actuati 00:00: every 6 Loc as on inhaler 00 (six) Medical hours as Branch needed for Wheezing or Bronchospa sm. albuterol Yes [id number] 2{puff} Inhale 2 Univers 90 9-23 Puffs ity of mcg/actuati 00:00: every 6 Loc as on inhaler 00 (six) Medical hours as Branch needed for Wheezing or Bronchospa sm. albuterol Yes [id number] 2{puff} Inhale 2 Univers 90 9-23 Puffs ity of mcg/actuati 00:00: every 6 Loc as on inhaler 00 (six) Medical hours as Branch needed for Wheezing or Bronchospa sm. albuterol Yes [id number] 2{puff} Inhale 2 Univers 90 9-23 Puffs ity of mcg/actuati 00:00: every 6 Loc as on inhaler 00 (six) Medical hours as Branch needed for Wheezing or Bronchospa sm. albuterol Yes [id number] 2{puff} Inhale 2 Univers 90 9-23 Puffs ity of mcg/actuati 00:00: every 6 Loc as on inhaler 00 (six) Medical hours as Branch needed for Wheezing or Bronchospa sm. albuterol Yes [id number] 2{puff} Inhale 2 Univers 90 9-23 Puffs ity of mcg/actuati 00:00: every 6 Loc as on inhaler 00 (six) Medical hours as Branch needed for Wheezing or Bronchospa sm. methylPREDN 2021- No [id number] Take by Univers ISolone 4 - 09-30 mouth ity of mg tablets 00:00: 00:00 SEE-INSTRU [place] 00 :00 CTIONS. Medical follow Branch package directions methylPREDN 2021-0 2021- No [id number] Take by Univers ISolone 4 07-04 09-30 mouth ity of mg tablets 00:00: 00:00 SEE-INSTRU [place] 00 :00 CTIONS. Medical follow Branch package directions promethazin 2021-0 Yes [id number] 5mL Take 5 mL Univers e-dextromet 9-19 by mouth 4 it y of horphan 00:00: (four) [place] 6.25-15 00 times Medical mg/5 mL daily as Branch syrup needed for Cough. bromphenira 2021-0 Yes [id number] 5mL Take 5 mL Univers mine-pseudo 9-19 by mouth 4 it y of ephedrine-D 00:00: (four) [place] M (BROMFED 00 times Medical DM) 2-30-10 daily as Bran ch mg/5 mL needed for syrup Congestion /Allergies . promethazin 2021-0 Yes [id number] 5mL Take 5 mL Univers e-dextromet 9-19 by mouth 4 it y of horphan 00:00: (four) [place] 6.25-15 00 times Medical mg/5 mL daily as Branch syrup needed for Cough. bromphenira 2021-0 Yes [id number] 5mL Take 5 mL [facility] mine-pseudo 9-19 by mouth 4 it y of ephedrine-D 00:00: (four[place] (BROMFED 00 times Medical DM) 2-30-10 daily as Bran ch mg/5 mL needed for syrup Congestion /Allergies . promethazin 2021-0 Yes [id number] 5mL Take 5 mL [facility] e-dextromet 9-19 by mouth 4 it y of horphan 00:00: (four) [place] 6.25-15 00 times Medical mg/5 mL daily as Branch syrup needed for Cough. bromphenira 2021-0 Yes [id number] 5mL Take 5 mL [facility] mine-pseudo 9-19 by mouth 4 it y of ephedrine-D 00:00: (four[place] (BROMFED 00 times Medical DM) 2-30-10 daily as Bran ch mg/5 mL needed for syrup Congestion /Allergies . promethazin 2021-0 Yes [id number] 5mL Take 5 mL [facility] e-dextromet 9-19 by mouth 4 it y of horphan 00:00: (four) [place] 6.25-15 00 times Medical mg/5 mL daily as Branch syrup needed for Cough. bromphenira 2-0 Yes [id number] 5mL Take 5 mL [facility] mine-pseudo 9-19 by mouth 4 it y of ephedrine-D 00:00: (four[place] (BROMFED 00 times Medical DM) 2-30-10 daily as Bran ch mg/5 mL needed for syrup Congestion /Allergies . bromphenira 2022-0 Yes [id number] 5mL Take 5 mL [facility] mine-pseudo 9-19 by mouth 4 it y of ephedrine-D 00:00: (four[place] (BROMFED 00 times Medical DM) 2-30-10 daily as Bran ch mg/5 mL needed for syrup Congestion /Allergies . bromphenira 2021-0 Yes [id number] 5mL Take 5 mL [facility] mine-pseudo 9-19 by mouth 4 it y of ephedrine-D 00:00: (four[place] (BROMFED 00 times Medical DM) 2-30-10 daily as Bran ch mg/5 mL needed for syrup Congestion /Allergies . bromphenira 2021-0 Yes [id number] 5mL Take 5 mL [facility] mine-pseudo 9-19 by mouth 4 it y of ephedrine-D 00:00: (four[place] (BROMFED 00 times Medical DM) 2-30-10 daily as Bran ch mg/5 mL needed for syrup Congestion /Allergies . bromphenira 2-0 Yes [id number] 5mL Take 5 mL [facility] mine-pseudo 9-19 by mouth 4 it y of ephedrine-D 00:00: (four[place] (BROMFED 00 times Medical DM) 2-30-10 daily as Bran ch mg/5 mL needed for syrup Congestion /Allergies . bromphenira 2021-0 2022- No [id number] 5mL Take 5 mL [facility] mine-pseudo 9-19 10-20 by mouth 4 i ty of ephedrine-D 00:00: 00:00 (four) [place] (BROMFED 00 :00 times Medical DM) 2-30-10 daily as Bran ch mg/5 mL needed for syrup Congestion /Allergies . bromphenira 2022-0 2022- No [id number] 5mL Take 5 mL [facility] mine-pseudo 9-19 10-20 by mouth 4 i ty of ephedrine-D 00:00: 00:00 (four) [place] [facility] (BROMFED 00 :00 times Medical DM) 2-30-10 daily as Bran ch mg/5 mL needed for syrup Congestion /Allergies . bromphenira 2- No [id number] 5mL Take 5 mL [facility] mine-pseudo 9-19 10-20 by mouth 4 i ty of ephedrine-D 00:00: 00:00 (four) [place] (BROMFED 00 :00 times Medical DM) 2-30-10 daily as Bran ch mg/5 mL needed for syrup Congestion /Allergies . bromphenira 2021-2021- No [id number] 5mL Take 5 mL [facility] mine-pseudo 9-19 10-20 by mouth 4 i ty of ephedrine-D 00:00: 00:00 (four) [place] (BROMFED 00 :00 times Medical DM) 2-30-10 daily as Bran ch mg/5 mL needed for syrup Congestion /Allergies . promethazin 2021- No [id number] 5mL Take 5 mL [facility] e-dextromet -30 06-30 by mouth 4 i ty of horphan 00:00: 00:00 (four) [place] 6.25-15 00 :00 times Medical mg/5 mL daily as Branch syrup needed for Cough. promethazin 2021-0 2- No [id number] 5mL Take 5 mL [facility] e-dextromet 06-30-30 by mouth 4 i ty of horphan 00:00: 00:00 (four) [place] 6.25-15 00 :00 times Medical mg/5 mL daily as Branch syrup needed for Cough. Rosuvastati Yes 10mg Take 10 mg Alejandra n Calcium 9-13 by mouth Seybol d 10 MG oral 00:00: at bedtime - Tablet 00 Externa l rosuvastati Yes [id number] 10mg Take 1 [facility] n 10 mg 9-13 tablet by ity of tablet 00:00: mouth at [place] 00 bedtime. Medical Branch rosuvastati Yes [id number] 10mg Take 1 [facility] n 10 mg 9-13 tablet by ity of tablet 00:00: mouth at [place] 00 bedtime. Medical Branch rosuvastati Yes [id number] 10mg Take 1 [facility] n 10 mg 9-13 tablet by ity of tablet 00:00: mouth at [place] 00 bedtime. Medical Branch rosuvastati Yes [id number] 10mg Take 1 [facility] n 10 mg 9-13 tablet by ity of tablet 00:00: mouth at [place] 00 bedtime. Medical Branch rosuvastati 2021- Yes [id number] 10mg Take 1 [facility] n 10 mg 9-13 tablet by ity of tablet 00:00: mouth at [place] 00 bedtime. Medical Branch rosuvastati Yes [id number] 10mg Take 1 [facility] n 10 mg 9-13 tablet by ity of tablet 00:00: mouth at [place] 00 bedtime. Medical Branch rosuvastati Yes [id number] 10mg Take 1 [facility] n 10 mg 9-13 tablet by ity of tablet 00:00: mouth at [place] [address] bedtime. Medical Branch rosuvastati Yes [id number] 10mg Take 1 [facility] n 10 mg 9-13 tablet by ity of tablet 00:00: mouth at [place] [address] bedtime. Medical Branch rosuvastati Yes [id number] 10mg Take 1 [facility] n 10 mg 9-13 tablet by ity of tablet 00:00: mouth at [place] [address] bedtime. Medical Branch rosuvastati Yes [id number] 10mg Take 1 [facility] n 10 mg 9-13 tablet by ity of tablet 00:00: mouth at [place] [address] bedtime. Medical Branch rosuvastati 2021- Yes [id number] 10mg Take 1 [facility] n 10 mg 9-13 tablet by ity of tablet 00:00: mouth at [place] [address] bedtime. Medical Branch rosuvastati Yes [id number] 10mg Take 1 [facility] n 10 mg 9-13 tablet by ity of tablet 00:00: mouth at [place] [address] bedtime. Medical Branch rosuvastati Yes [id number] 10mg Take 1 [facility] n 10 mg 9-13 tablet by ity of tablet 00:00: mouth at [place] [address] bedtime. Medical Branch rosuvastati 2021- Yes [id number] 10mg Take 1 [facility] n 10 mg 9-13 tablet by ity of tablet 00:00: mouth at [place] [address] bedtime. Medical Branch rosuvastati 2021-0 Yes [id number] 10mg Take 1 [facility] n 10 mg 9-13 tablet by ity of tablet 00:00: mouth at [place] [address] bedtime. Medical Branch rosuvastati 2021-0 Yes [id number] 10mg Take 1 [facility] n 10 mg 9-13 tablet by ity of tablet 00:00: mouth at [place] [address] bedtime. Medical Branch rosuvastati 2021-0 Yes [id number] 10mg Take 1 [facility] n 10 mg 9-13 tablet by ity of tablet 00:00: mouth at [place] [address] bedtime. Medical Branch rosuvastati 0 Yes [id number] 10mg Take 1 [facility] n 10 mg 9-13 tablet by ity of tablet 00:00: mouth at [place] [address] bedtime. Medical Branch benzonatate 2021-0 Yes [id number] 200mg Take 2 [facility] 100 mg 9-05 capsules ity of capsule 00:00: by mouth [place] [address] every 8 Medical (eight) Branch hours as needed for Cough. azelastine 0 Yes [id number] 1{spray Use 1 [facility] 137 mcg 9-05 } [place] in ity of (0.1 %) 00:00: each [place] nasal spray 00 nostril in [facility] the Branch morning and 1 [place] in the evening. Use in each nostril as directed molnupiravi 2021-0 Yes [id number] 800mg Take 4 [facility] r 200 mg 9-05 capsules ity of capsule 00:00: by mouth [place] [address] every 12 Medical (twelve) Branch hours. benzonatate 2021-0 Yes [id number] 200mg Take 2 [facility] 100 mg 9-05 capsules ity of capsule 00:00: by mouth [place] [address] every 8 Medical (eight) Branch hours as needed for Cough. azelastine 2021-0 Yes [id number] 1{spray Use 1 [facility] 137 mcg 9-05 } [place] in ity of (0.1 %) 00:00: each [place] nasal spray 00 nostril in [facility] the Branch morning and 1 [place] in the evening. Use in each nostril as directed molnupiravi 2021-0 Yes [id number] 800mg Take 4 [facility] r 200 mg 9-05 capsules ity of capsule 00:00: by mouth [place] [address] every 12 Medical (twelve) Branch hours. benzonatate 0 Yes [id number] 200mg Take 2 [facility] 100 mg 9-05 capsules ity of capsule 00:00: by mouth [place] 00 every 8 Medical (eight) Branch hours as needed for Cough. azelastine Yes [id number] 1{spray Use 1 [facility] 137 mcg 9-05 } [place] in ity of (0.1 %) 00:00: each [place] nasal spray 00 nostril in [facility] the Branch morning and 1 [place] in the evening. Use in each nostril as directed molnupiravi 0 Yes [id number] 800mg Take 4 [facility] r 200 mg 9-05 capsules ity of capsule 00:00: by mouth [place] every 12 Medical (twelve) Branch hours. azelastine Yes [id number] 1{spray Use 1 [facility] 137 mcg 9-05 } [place] in ity of (0.1 %) 00:00: each [place] nasal spray 00 nostril in [facility] the Branch morning and 1 [place] in the evening. Use in each nostril as directed molnupiravi 0 Yes [id number] 800mg Take 4 [facility] r 200 mg 9-05 capsules ity of capsule 00:00: by mouth [place] every 12 Medical (twelve) Branch hours. azelastine 0 Yes [id number] 1{spray Use 1 [facility] 137 mcg 9-05 } [place] in ity of (0.1 %) 00:00: each [place] nasal spray 00 nostril in [facility] the Branch morning and 1 [place] in the evening. Use in each nostril as directed molnupiravi 0 Yes [id number] 800mg Take 4 [facility] r 200 mg 9-05 capsules ity of capsule 00:00: by mouth [place] every 12 Medical (twelve) Branch hours. azelastine 2021-0 Yes [id number] 1{spray Use 1 [facility] 137 mcg 9-05 } [place] in ity of (0.1 %) 00:00: each [place] nasal spray 00 [facility] Branch morning and 1 [place] in the evening. Use in each nostril as directed molnupiravi 0 Yes [id number] 800mg Take 4 [facility] r 200 mg 9-05 capsules ity of capsule 00:00: by mouth [place] 00 every 12 Medical (twelve) Branch hours. azelastine Yes [id number] 1{spray Use 1 [facility] 137 mcg 9-05 } [place] in ity of (0.1 %) 00:00: each [place] nasal spray 00 nostril in [facility] the Branch morning and 1 [place] in the evening. Use in each nostril as directed molnupiravi Yes [id number] 800mg Take 4 [facility] r 200 mg 9-05 capsules ity of capsule 00:00: by mouth [place] 00 every 12 Medical (twelve) Branch hours. molnupiravi Yes [id number] 800mg Take 4 [facility] r 200 mg 9-05 capsules ity of capsule 00:00: by mouth [place] 00 every 12 Medical (twelve) Branch hours. molnupiravi Yes [id number] 800mg Take 4 [facility] r 200 mg 9-05 capsules ity of capsule 00:00: by mouth [place] 00 every 12 Medical (twelve) Branch hours. molnupiravi Yes [id number] 800mg Take 4 [facility] r 200 mg 9-05 capsules ity of capsule 00:00: by mouth [place] 00 every 12 Medical (twelve) Branch hours. molnupiravi 0 Yes [id number] 800mg Take 4 [facility] r 200 mg 9-05 capsules ity of capsule 00:00: by mouth [place] 00 every 12 Medical (twelve) Branch hours. molnupiravi 2021- No [id number] 800mg Take 4 [facility] r 200 mg 9-05 10-20 capsules ity of capsule 00:00: 00:00 by mouth [place] 00 :00 every 12 Medical (twelve) Branch hours. molnupiravi 0 2021- No [id number] 800mg Take 4 [facility] r 200 mg 9-05 10-20 capsules ity of capsule 00:00: 00:00 by mouth [place] 00 :00 every 12 Medical (twelve) Branch hours. molnupiravi 2021-0 2021- No [id number] 800mg Take 4 [facility] r 200 mg 9-05 10-20 capsules ity of capsule 00:00: 00:00 by mouth [place] 00 :00 every 12 Medical (twelve) Branch hours. molnupiravi 2021- No [id number] 800mg Take 4 [facility] r 200 mg 06-16 10-20 capsules ity of capsule 00:00: 00:00 by mouth [place] 00 :00 every 12 Medical (twelve) Branch hours. azelastine 2021- No [id number] 1{spray Use 1 [facility] 137 mcg 06-1630 } [place] in ity of (0.1 %) 00:00: 00:00 each [place] nasal spray 00 :00 nostril in [facility] the Branch morning and 1 [place] in the evening. Use in each nostril as directed azelastine 2021- No [id number] 1{spray Use 1 [facility] 137 mcg 06-1630 } [place] in ity of (0.1 %) 00:00: 00:00 each [place] nasal spray 00 :00 nostril in [facility] the Branch morning and 1 [place] in the evening. Use in each nostril as directed benzonatate 2021- No [id number] 200mg Take 2 [facility] 100 mg 06-16-19 capsules ity of capsule 00:00: 00:00 by mouth [place] 00 :00 every 8 Medical (eight) Branch hours as needed for Cough. Metformin Yes 1000mg Take 1 [place] [facility] HCl 1000 MG 7-05 tablet Seybol d oral Tablet 00:00: (1,000 mg - 00 total) by Externa mouth in l the morning and 1 tablet (1,000 mg total) in the evening. Take with meals. Metformin 2021- Yes 1{tbl} Take 1 [place] ey HCl 1000 MG 7-05 tablet by Sey bold oral Tablet 00:00: mouth in - 00 the Externa morning l and 1 tablet in the evening. Take with meals. Metoprolol 2021-0 Yes 1{tbl} Take 1 [place]y sey Tartrate 7-05 tablet by Seybol d (LOPRESSOR) 00:00: mouth 2 - 50 MG oral 00 times Externa Tablet daily l Venlafaxine 2021-0 Yes 1{tbl} Take 1 [place] HCl 75 MG 7-05 tablet by Seybo ld oral Tablet 00:00: mouth 2 - 00 times Externa daily l Metformin 2021-0 Yes 1000mg Take 1 [place] [facility] HCl 1000 MG 7-05 tablet Seybol d oral Tablet 00:00: (1,000 mg - 00 total) by Externa mouth in l the morning and 1 tablet (1,000 mg total) in the evening. Take with meals. Metoprolol 2021-0 Yes 50mg Take 1 [place] y Tartrate 7-05 tablet (50 Seybo ld (LOPRESSOR) 00:00: mg total) - 50 MG oral 00 by mouth 2 Ext yeyo Tablet times l daily Venlafaxine 2021-0 Yes 75mg Take 1 [place] ey HCl 75 MG 7-05 tablet (75 Seyb old oral Tablet 00:00: mg total) - 00 by mouth 2 Externa times l daily METFORMIN 2021-0 Yes [id number] TAKE 1 U nivers 1,000 mg 7-05 TABLET ity of tablet 00:00: TWICE A WITH Medical MEALS Branch METOPROLOL 2021-0 Yes [id number] TAKE 1 U nivers TARTRATE 50 7-05 TABLET ity of mg tablet 00:00: TWICE A Medical Branch VENLAFAXINE 2021-0 Yes [id number] TAKE 1 [facility] 75 mg 7-05 TABLET ity of tablet 00:00: TWICE A Medical Branch METFORMIN 2021-0 Yes [id number] TAKE 1 U nivers 1,000 mg 7-05 TABLET ity of tablet 00:00: TWICE A WITH Medical MEALS Branch METOPROLOL 2021-0 Yes [id number] TAKE 1 U nivers TARTRATE 50 7-05 TABLET ity of mg tablet 00:00: TWICE A Medical Branch VENLAFAXINE 2021-0 Yes [id number] TAKE 1 [facility] 75 mg 7-05 TABLET ity of tablet 00:00: TWICE A Medical Branch METFORMIN 2-0 Yes [id number] TAKE 1 U nivers 1,000 mg 7-05 TABLET ity of tablet 00:00: TWICE A WITH Medical MEALS Branch METOPROLOL 2021-0 Yes [id number] TAKE 1 U nivers TARTRATE 50 7-05 TABLET ity of mg tablet 00:00: TWICE A Medical Branch VENLAFAXINE 2021-0 Yes [id number] TAKE 1 [facility] 75 mg 7-05 TABLET ity of tablet 00:00: TWICE A Medical Branch METFORMIN 2022-0 Yes [id number] TAKE 1 U nivers 1,000 mg 7-05 TABLET ity of tablet 00:00: TWICE A WITH Medical MEALS Branch METOPROLOL 2022-0 Yes [id number] TAKE 1 U nivers TARTRATE 50 7-05 TABLET ity of mg tablet 00:00: TWICE A Medical Branch VENLAFAXINE 2022-0 Yes [id number] TAKE 1 [facility] 75 mg 7-05 TABLET ity of tablet 00:00: TWICE A Medical Branch METFORMIN 2022-0 Yes [id number] TAKE 1 U nivers 1,000 mg 7-05 TABLET ity of tablet 00:00: TWICE A WITH Medical MEALS Branch METOPROLOL 2022-0 Yes [id number] TAKE 1 U nivers TARTRATE 50 7-05 TABLET ity of mg tablet 00:00: TWICE A Medical Branch VENLAFAXINE 2022-0 Yes [id number] TAKE 1 [facility] 75 mg 7-05 TABLET ity of tablet 00:00: TWICE A Medical Branch METFORMIN 2022-0 Yes [id number] TAKE 1 U nivers 1,000 mg 7-05 TABLET ity of tablet 00:00: TWICE A WITH Medical MEALS Branch METOPROLOL 2022-0 Yes [id number] TAKE 1 U nivers TARTRATE 50 7-05 TABLET ity of mg tablet 00:00: TWICE A Medical Branch VENLAFAXINE 2022-0 Yes [id number] TAKE 1 [facility] 75 mg 7-05 TABLET ity of tablet 00:00: TWICE A Medical Branch METFORMIN 2022-0 Yes [id number] TAKE 1 U nivers 1,000 mg 7-05 TABLET ity of tablet 00:00: TWICE A WITH Medical MEALS Branch METOPROLOL 2022-0 Yes [id number] TAKE 1 U nivers TARTRATE 50 7-05 TABLET ity of mg tablet 00:00: TWICE A Medical Branch VENLAFAXINE 2022-0 Yes [id number] TAKE 1 [facility] 75 mg 7-05 TABLET ity of tablet 00:00: TWICE A Medical Branch METFORMIN 2022-0 Yes [id number] TAKE 1 U nivers 1,000 mg 7-05 TABLET ity of tablet 00:00: TWICE A WITH Medical MEALS Branch METOPROLOL 2022-0 Yes [id number] TAKE 1 U nivers TARTRATE 50 7-05 TABLET ity of mg tablet 00:00: TWICE A Medical Branch VENLAFAXINE 2022-0 Yes [id number] TAKE 1 [facility] 75 mg 7-05 TABLET ity of tablet 00:00: TWICE A Medical Branch METFORMIN 2022-0 Yes [id number] TAKE 1 U nivers 1,000 mg 7-05 TABLET ity of tablet 00:00: TWICE A WITH Medical MEALS Branch METOPROLOL 2022-0 Yes [id number] TAKE 1 U nivers TARTRATE 50 7-05 TABLET ity of mg tablet 00:00: TWICE A Medical Branch VENLAFAXINE 2022-0 Yes [id number] TAKE 1 [facility] 75 mg 7-05 TABLET ity of tablet 00:00: TWICE A Medical Branch METFORMIN 2022-0 Yes [id number] TAKE 1 U nivers 1,000 mg 7-05 TABLET ity of tablet 00:00: TWICE A WITH Medical MEALS Branch METOPROLOL 2022-0 Yes [id number] TAKE 1 U nivers TARTRATE 50 7-05 TABLET ity of mg tablet 00:00: TWICE A Medical Branch VENLAFAXINE 2022-0 Yes [id number] TAKE 1 [facility] 75 mg 7-05 TABLET ity of tablet 00:00: TWICE A Medical Branch METFORMIN 2022-0 Yes [id number] TAKE 1 U nivers 1,000 mg 7-05 TABLET ity of tablet 00:00: TWICE A WITH Medical MEALS Branch METOPROLOL 2022-0 Yes [id number] TAKE 1 U nivers TARTRATE 50 7-05 TABLET ity of mg tablet 00:00: TWICE A Medical Branch VENLAFAXINE 2022-0 Yes [id number] TAKE 1 [facility] 75 mg 7-05 TABLET ity of tablet 00:00: TWICE A Medical Branch METFORMIN 2022-0 Yes [id number] TAKE 1 U nivers 1,000 mg 7-05 TABLET ity of tablet 00:00: TWICE A WITH Medical MEALS Branch METOPROLOL 2022-0 Yes [id number] TAKE 1 U nivers TARTRATE 50 7-05 TABLET ity of mg tablet 00:00: TWICE A Medical Branch VENLAFAXINE 2022-0 Yes [id number] TAKE 1 [facility] 75 mg 7-05 TABLET ity of tablet 00:00: TWICE A Medical Branch METFORMIN 2022-0 Yes [id number] TAKE 1 U nivers 1,000 mg 7-05 TABLET ity of tablet 00:00: TWICE A WITH Medical MEALS Branch METOPROLOL 2022-0 Yes [id number] TAKE 1 U nivers TARTRATE 50 7-05 TABLET ity of mg tablet 00:00: TWICE A Medical Branch VENLAFAXINE 2-0 Yes [id number] TAKE 1 [facility] 75 mg 7-05 TABLET ity of tablet 00:00: TWICE A Medical Branch METFORMIN 2-0 Yes [id number] TAKE 1 U nivers 1,000 mg 7-05 TABLET ity of tablet 00:00: TWICE A WITH Medical MEALS Branch METOPROLOL 2022-0 Yes [id number] TAKE 1 U nivers TARTRATE 50 7-05 TABLET ity of mg tablet 00:00: TWICE A Medical Branch VENLAFAXINE 2-0 Yes [id number] TAKE 1 [facility] 75 mg 7-05 TABLET ity of tablet 00:00: TWICE A Medical Branch METFORMIN 2022-0 Yes [id number] TAKE 1 U nivers 1,000 mg 7-05 TABLET ity of tablet 00:00: TWICE A WITH Medical MEALS Branch METOPROLOL 2022-0 Yes [id number] TAKE 1 U nivers TARTRATE 50 7-05 TABLET ity of mg tablet 00:00: TWICE A Medical Branch VENLAFAXINE 2022-0 Yes [id number] TAKE 1 [facility] 75 mg 7-05 TABLET ity of tablet 00:00: TWICE A Medical Branch METFORMIN 2022-0 Yes [id number] TAKE 1 U nivers 1,000 mg 7-05 TABLET ity of tablet 00:00: TWICE A WITH Medical MEALS Branch METOPROLOL 2022-0 Yes [id number] TAKE 1 U nivers TARTRATE 50 7-05 TABLET ity of mg tablet 00:00: TWICE A Medical Branch VENLAFAXINE 2022-0 Yes [id number] TAKE 1 [facility] 75 mg 7-05 TABLET ity of tablet 00:00: TWICE A Medical Branch METFORMIN 2022-0 Yes [id number] TAKE 1 U nivers 1,000 mg 7-05 TABLET ity of tablet 00:00: TWICE A WITH Medical MEALS Branch METOPROLOL 2022-0 Yes [id number] TAKE 1 U nivers TARTRATE 50 7-05 TABLET ity of mg tablet 00:00: TWICE A Medical Branch VENLAFAXINE 2022-0 Yes [id number] TAKE 1 [facility] 75 mg 7-05 TABLET ity of tablet 00:00: TWICE A Medical Branch METFORMIN 2022-0 Yes [id number] TAKE 1 U nivers 1,000 mg 7-05 TABLET ity of tablet 00:00: TWICE A WITH Medical MEALS Branch METOPROLOL 2022-0 Yes [id number] TAKE 1 U nivers TARTRATE 50 7-05 TABLET ity of mg tablet 00:00: TWICE A Medical Branch VENLAFAXINE 2022-0 Yes [id number] TAKE 1 [facility] 75 mg 7-05 TABLET ity of tablet 00:00: TWICE A Medical Branch METFORMIN 2022-0 Yes [id number] TAKE 1 U nivers 1,000 mg 7-05 TABLET ity of tablet 00:00: TWICE A WITH Medical MEALS Branch METOPROLOL 2022-0 Yes [id number] TAKE 1 U nivers TARTRATE 50 7-05 TABLET ity of mg tablet 00:00: TWICE A Medical Branch VENLAFAXINE 2022-0 Yes [id number] TAKE 1 [facility] 75 mg 7-05 TABLET ity of tablet 00:00: TWICE A Medical Branch METFORMIN 2022-0 Yes [id number] TAKE 1 U nivers 1,000 mg 7-05 TABLET ity of tablet 00:00: TWICE A WITH Medical MEALS Branch METOPROLOL 2022-0 Yes [id number] TAKE 1 U nivers TARTRATE 50 7-05 TABLET ity of mg tablet 00:00: TWICE A Medical Branch VENLAFAXINE 2022-0 Yes [id number] TAKE 1 [facility] 75 mg 7-05 TABLET ity of tablet 00:00: TWICE A Medical Branch METFORMIN 2022-0 Yes [id number] TAKE 1 U nivers 1,000 mg 7-05 TABLET ity of tablet 00:00: TWICE A WITH Medical MEALS Branch METOPROLOL 2022-0 Yes [id number] TAKE 1 U nivers TARTRATE 50 7-05 TABLET ity of mg tablet 00:00: TWICE A Medical Branch VENLAFAXINE 2022-0 Yes [id number] TAKE 1 [facility] 75 mg 7-05 TABLET ity of tablet 00:00: TWICE A Medical Branch METFORMIN 2022-0 Yes [id number] TAKE 1 U nivers 1,000 mg 7-05 TABLET ity of tablet 00:00: TWICE A WITH Medical MEALS Branch METOPROLOL 2022-0 Yes [id number] TAKE 1 U nivers TARTRATE 50 7-05 TABLET ity of mg tablet 00:00: TWICE A Medical Branch VENLAFAXINE 2-0 Yes [id number] TAKE 1 [facility] 75 mg 7-05 TABLET ity of tablet 00:00: TWICE A Medical Branch METFORMIN 2-0 Yes [id number] TAKE 1 U nivers 1,000 mg 7-05 TABLET ity of tablet 00:00: TWICE A WITH Medical MEALS Branch METOPROLOL 2021-0 Yes [id number] TAKE 1 U nivers TARTRATE 50 7-05 TABLET ity of mg tablet 00:00: TWICE A Medical Branch VENLAFAXINE 2022-0 Yes [id number] TAKE 1 [facility] 75 mg 7-05 TABLET ity of tablet 00:00: TWICE A Medical Branch METFORMIN 2022-0 Yes [id number] TAKE 1 U nivers 1,000 mg 7-05 TABLET ity of tablet 00:00: TWICE A WITH Medical MEALS Branch METOPROLOL 2022-0 Yes [id number] TAKE 1 U nivers TARTRATE 50 7-05 TABLET ity of mg tablet 00:00: TWICE A Medical Branch VENLAFAXINE 2022-0 Yes [id number] TAKE 1 [facility] 75 mg 7-05 TABLET ity of tablet 00:00: TWICE A Medical Branch METFORMIN 2022-0 Yes [id number] TAKE 1 U nivers 1,000 mg 7-05 TABLET ity of tablet 00:00: TWICE A WITH Medical MEALS Branch METOPROLOL 2022-0 Yes [id number] TAKE 1 U nivers TARTRATE 50 7-05 TABLET ity of mg tablet 00:00: TWICE A [place] 00 DAY Medical Branch VENLAFAXINE 0 Yes [id number] TAKE 1 [facility] 75 mg 7-05 TABLET ity of tablet 00:00: TWICE A DAY Medical Branch SITagliptin 0 Yes 100mg Take 1 Uni vers (JANUVIA) 5-20 tablet by ity o f 100 mg 00:00: mouth [place] tablet 00 daily. Medical Branch SITagliptin 0 Yes 100mg Take 1 Uni vers (JANUVIA) 5-20 tablet by ity o f 100 mg 00:00: mouth [place] tablet 00 daily. Medical Branch SITagliptin 0 Yes 100mg Take 1 [facility] vers (JANUVIA) 5-20 tablet by ity o f 100 mg 00:00: mouth [place] tablet 00 daily. Medical Branch SITagliptin 0 Yes 100mg Take 1 [facility] vers (JANUVIA) 5-20 tablet by ity o f 100 mg 00:00: mouth [place] tablet 00 daily. Medical Branch SITagliptin Yes 100mg Take 1 [facility] vers (JANUVIA) 5-20 tablet by ity o f 100 mg 00:00: mouth [place] tablet 00 daily. Medical Branch SITagliptin Yes 100mg Take 1 [facility] vers (JANUVIA) 5-20 tablet by ity o f 100 mg 00:00: mouth [place] tablet 00 daily. Medical Branch SITagliptin 0 Yes 100mg Take 1 [facility] vers (JANUVIA) 5-20 tablet by ity o f 100 mg 00:00: mouth [place] tablet 00 daily. Medical Branch SITagliptin Yes 100mg Take 1 [facility] vers (JANUVIA) 5-20 tablet by ity o f 100 mg 00:00: mouth [place] tablet 00 daily. Medical Branch SITagliptin 0 Yes 100mg Take 1 [facility] vers (JANUVIA) 5-20 tablet by ity o f 100 mg 00:00: mouth [place] tablet 00 daily. Medical Branch SITagliptin 2021-0 Yes 100mg Take 1 [facility] vers (JANUVIA) 5-20 tablet by ity o f 100 mg 00:00: mouth [place] tablet 00 daily. Medical Branch SITagliptin 0 Yes 100mg Take 1 [facility] vers (JANUVIA) 5-20 tablet by ity o f 100 mg 00:00: mouth [place] tablet 00 daily. Medical Branch SITagliptin 0 Yes 100mg Take 1 [facility] vers (JANUVIA) 5-20 tablet by ity o f 100 mg 00:00: mouth [place] tablet 00 daily. Medical Branch SITagliptin 0 Yes 100mg Take 1 [facility] vers (JANUVIA) 5-20 tablet by ity o f 100 mg 00:00: mouth [place] tablet 00 daily. [facility] Branch SITagliptin 0 Yes 100mg Take 1 [facility] vers (JANUVIA) 5-20 tablet by ity o f 100 mg 00:00: mouth [place] tablet 00 daily. [facility] Branch SITagliptin 0 Yes 100mg Take 1 [facility] vers (JANUVIA) 5-20 tablet by ity o f 100 mg 00:00: mouth [place] tablet 00 daily. [facility] Branch SITagliptin 0 Yes 100mg Take 1 [facility] vers (JANUVIA) 5-20 tablet by ity o f 100 mg 00:00: mouth [place] tablet 00 daily. [facility] Branch SITagliptin Yes 100mg Take 1 [facility] vers (JANUVIA) 5-20 tablet by ity o f 100 mg 00:00: mouth [place] tablet 00 daily. [facility] Branch SITagliptin Yes 100mg Take 1 [facility] vers (JANUVIA) 5-20 tablet by ity o f 100 mg 00:00: mouth [place] tablet 00 daily. [facility] Branch SITagliptin Yes 100mg Take 1 [facility] vers (JANUVIA) 5-20 tablet by ity o f 100 mg 00:00: mouth [place] tablet 00 daily. [facility] SITagliptin Yes 100mg Take 1 Uni vers (JANUVIA) 5-20 tablet by ity o f 100 mg 00:00: mouth [place] tablet 00 daily. [facility] SITagliptin 0 Yes 100mg Take 1 [facility] vers (JANUVIA) 5-20 tablet by ity o f 100 mg 00:00: mouth [place] tablet 00 daily. [facility] SITagliptin 0 Yes 100mg Take 1 [facility] vers (JANUVIA) 5-20 tablet by ity o f 100 mg 00:00: mouth [place] tablet 00 daily. [facility] SITagliptin 0 Yes 100mg Take 1 Uni vers (JANUVIA) 5-20 tablet by ity o f 100 mg 00:00: mouth [place] tablet 00 daily. [facility] SITagliptin 0 Yes 100mg Take 1 Uni vers (JANUVIA) 5-20 tablet by ity o f 100 mg 00:00: mouth [place] tablet 00 daily. Medical Branch SITagliptin Yes 100mg Take 1 [facility] vers (JANUVIA) 5-20 tablet by ity o f 100 mg 00:00: mouth [place] tablet 00 daily. Medical Branch SITagliptin Yes 100mg Take 1 Uni vers (JANUVIA) 5-20 tablet by ity o f 100 mg 00:00: mouth [place] tablet 00 daily. Medical Branch SITagliptin Yes 100mg Take 1 [facility] vers (JANUVIA) 5-20 tablet by ity o f 100 mg 00:00: mouth [place] tablet 00 daily. Medical Branch SITagliptin 2021- No 100mg Take 1 [facility] [place] (JANUVIA) 5-20 06-20 tablet by ity of 100 mg 00:00: 04:59 mouth [place] tablet 00 :00 daily for Medical 30 days. Branch SITagliptin 2021- No 100mg Take 1 [facility] [place] (JANUVIA) 5-20 05-20 tablet by ity of 100 mg 00:00: 00:00 mouth [place] tablet 00 :00 daily for Medical 30 days. Branch SITagliptin 2021- No 100mg Take 1 [facility] [place] (JANUVIA) 5-20 05-20 tablet by ity of 100 mg 00:00: 00:00 mouth [place] tablet 00 :00 daily. Medical Branch JANUVIA 100 Yes TAKE ONE [facility] [place] mg tablet 3-24 (1) ity of 00:00: TABLET(S) [place] 00 BY MOUTH Medical ONCE A Branch DAY. JANUVIA 100 2021- No TAKE ONE U nivers mg tablet 3-24 05-20 (1) ity of 00:00: 00:00 TABLET(S) [place] 00 :00 BY MOUTH Medical ONCE A Branch DAY. JANUVIA 100 Yes TAKE ONE [facility] [place] mg tablet 2-17 (1) ity of 00:00: TABLET(S) [place] 00 BY MOUTH Medical ONCE A Branch DAY. JANUVIA 100 2021- No TAKE ONE U nivers mg tablet 2-17 03-24 (1) ity of 00:00: 00:00 TABLET(S) [place] 00 :00 BY MOUTH Medical ONCE A Branch DAY. HYDROCHLORO 0 Yes [id number] TAKE 1 U nivers THIAZIDE 25 2-14 TABLET ity of mg tablet 00:00: DAILY [place] [facility] HYDROCHLORO 2022-0 Yes [id number] TAKE 1 U nivers THIAZIDE 25 2-14 TABLET ity of mg tablet 00:00: DAILY [place] [facility] HYDROCHLORO 2022-0 Yes [id number] TAKE 1 U nivers THIAZIDE 25 2-14 TABLET ity of mg tablet 00:00: DAILY [place] [facility] HYDROCHLORO 2022-0 Yes [id number] TAKE 1 U nivers THIAZIDE 25 2-14 TABLET ity of mg tablet 00:00: DAILY [place] [facility] HYDROCHLORO 2022-0 Yes [id number] TAKE 1 U nivers THIAZIDE 25 2-14 TABLET ity of mg tablet 00:00: DAILY [place] [facility] HYDROCHLORO 2022-0 Yes [id number] TAKE 1 U nivers THIAZIDE 25 2-14 TABLET ity of mg tablet 00:00: DAILY [place] [facility] HYDROCHLORO 2022-0 Yes [id number] TAKE 1 U nivers THIAZIDE 25 2-14 TABLET ity of mg tablet 00:00: DAILY [place] [facility] HYDROCHLORO 2022-0 Yes [id number] TAKE 1 U nivers THIAZIDE 25 2-14 TABLET ity of mg tablet 00:00: DAILY [place] [facility] HYDROCHLORO 2022-0 Yes [id number] TAKE 1 U nivers THIAZIDE 25 2-14 TABLET ity of mg tablet 00:00: DAILY [place] [facility] HYDROCHLORO 2022-0 Yes [id number] TAKE 1 U nivers THIAZIDE 25 2-14 TABLET ity of mg tablet 00:00: DAILY [place] [facility] HYDROCHLORO 2022-0 Yes [id number] TAKE 1 U nivers THIAZIDE 25 2-14 TABLET ity of mg tablet 00:00: DAILY [address] HYDROCHLORO 2022-0 Yes [id number] TAKE 1 U nivers THIAZIDE 25 2-14 TABLET ity of mg tablet 00:00: DAILY [address] HYDROCHLORO 2022-0 Yes [id number] TAKE 1 U nivers THIAZIDE 25 2-14 TABLET ity of mg tablet 00:00: DAILY [address] HYDROCHLORO 2022-0 Yes [id number] TAKE 1 U nivers THIAZIDE 25 2-14 TABLET ity of mg tablet 00:00: DAILY [place] 00 Medical Branch HYDROCHLORO 2022-0 Yes [id number] TAKE 1 U nivers THIAZIDE 25 2-14 TABLET ity of mg tablet 00:00: DAILY [place] [facility] HYDROCHLORO 2022-0 Yes [id number] TAKE 1 U nivers THIAZIDE 25 2-14 TABLET ity of mg tablet 00:00: DAILY [place] [facility] HYDROCHLORO 2022-0 Yes [id number] TAKE 1 U nivers THIAZIDE 25 2-14 TABLET ity of mg tablet 00:00: DAILY [place] [facility] HYDROCHLORO 2022-0 Yes [id number] TAKE 1 U nivers THIAZIDE 25 2-14 TABLET ity of mg tablet 00:00: DAILY [place] [facility] HYDROCHLORO 2022-0 Yes [id number] TAKE 1 U nivers THIAZIDE 25 2-14 TABLET ity of mg tablet 00:00: DAILY [place] [facility] HYDROCHLORO 2022-0 Yes [id number] TAKE 1 U nivers THIAZIDE 25 2-14 TABLET ity of mg tablet 00:00: DAILY [place] [facility] HYDROCHLORO 2022-0 Yes [id number] TAKE 1 U nivers THIAZIDE 25 2-14 TABLET ity of mg tablet 00:00: DAILY [place] [facility] HYDROCHLORO 2022-0 Yes [id number] TAKE 1 U nivers THIAZIDE 25 2-14 TABLET ity of mg tablet 00:00: DAILY [address] HYDROCHLORO 2022-0 Yes [id number] TAKE 1 U nivers THIAZIDE 25 2-14 TABLET ity of mg tablet 00:00: DAILY [address] HYDROCHLORO 2022-0 Yes [id number] TAKE 1 U nivers THIAZIDE 25 2-14 TABLET ity of mg tablet 00:00: DAILY [place] [facility] HYDROCHLORO 2022-0 Yes [id number] TAKE 1 U nivers THIAZIDE 25 2-14 TABLET ity of mg tablet 00:00: DAILY [address] HYDROCHLORO 2022-0 Yes [id number] TAKE 1 U nivers THIAZIDE 25 2-14 TABLET ity of mg tablet 00:00: DAILY [address] HYDROCHLORO 2022-0 Yes [id number] TAKE 1 U nivers THIAZIDE 25 2-14 TABLET ity of mg tablet 00:00: DAILY [address] HYDROCHLORO 2022-0 Yes [id number] TAKE 1 U nivers THIAZIDE 25 2-14 TABLET ity of mg tablet 00:00: DAILY [place] 00 [facility] HYDROCHLORO 2022-0 Yes [id number] TAKE 1 U nivers THIAZIDE 25 2-14 TABLET ity of mg tablet 00:00: DAILY [facility] HYDROCHLORO 2022-0 Yes [id number] TAKE 1 U nivers THIAZIDE 25 2-14 TABLET ity of mg tablet 00:00: DAILY [facility] HYDROCHLORO 2022-0 2023- No [id number] TAKE 1 Univers THIAZIDE 25 2-14 02-08 TABLET ity o f mg tablet 00:00: 00:00 DAILY [place] 00 :00 [facility] ARIPIPRAZOL 2022-0 Yes [id number] TAKE ONE Univers E 20 mg 1-21 (1) ity of tablet 00:00: TABLET(S) BY MOUTH Medical ONCE A Branch DAY. ARIPIPRAZOL 2-0 Yes [id number] TAKE ONE Univers E 20 mg 1-21 (1) ity of tablet 00:00: TABLET(S) [place] BY MOUTH Medical ONCE A Branch DAY. ARIPIPRAZOL 2-0 Yes [id number] TAKE ONE Univers E 20 mg 1-21 (1) ity of tablet 00:00: TABLET(S) [place] BY MOUTH Medical ONCE A Branch DAY. ARIPIPRAZOL 2-0 Yes [id number] TAKE ONE Univers E 20 mg 1-21 (1) ity of tablet 00:00: TABLET(S) [place] 00 BY MOUTH Medical ONCE A Branch DAY. ARIPIPRAZOL 2-0 Yes [id number] TAKE ONE Univers E 20 mg 1-21 (1) ity of tablet 00:00: TABLET(S) [place] 00 BY MOUTH Medical ONCE A Branch DAY. ARIPIPRAZOL 2-0 Yes [id number] TAKE ONE Univers E 20 mg 1-21 (1) ity of tablet 00:00: TABLET(S) [place] 00 BY MOUTH Medical ONCE A Branch DAY. ARIPIPRAZOL 2022-0 Yes [id number] TAKE ONE Univers E 20 mg 1-21 (1) ity of tablet 00:00: TABLET(S) [place] 00 BY MOUTH Medical ONCE A Branch DAY. ARIPIPRAZOL 2022-0 Yes [id number] TAKE ONE Univers E 20 mg 1-21 (1) ity of tablet 00:00: TABLET(S) [place] 00 BY MOUTH Medical ONCE A Branch DAY. ARIPIPRAZOL 2021-0 Yes [id number] TAKE ONE Univers E 20 mg 1-21 (1) ity of tablet 00:00: TABLET(S) [place] 00 BY MOUTH Medical ONCE A Branch DAY. ARIPIPRAZOL 2021-0 Yes [id number] TAKE ONE Univers E 20 mg 1-21 (1) ity of tablet 00:00: TABLET(S) [place] 00 BY MOUTH Medical ONCE A Branch DAY. ARIPIPRAZOL 2021-0 Yes [id number] TAKE ONE Univers E 20 mg 1-21 (1) ity of tablet 00:00: TABLET(S) [place] 00 BY MOUTH Medical ONCE A Branch DAY. ARIPIPRAZOL 2021-0 Yes [id number] TAKE ONE Univers E 20 mg 1-21 (1) ity of tablet 00:00: TABLET(S) [place] 00 BY MOUTH Medical ONCE A Branch DAY. ARIPIPRAZOL 2021-0 Yes [id number] TAKE ONE Univers E 20 mg 1-21 (1) ity of tablet 00:00: TABLET(S) [place] 00 BY MOUTH Medical ONCE A Branch DAY. ARIPIPRAZOL 2021-0 2021- No [id number] TAKE ONE Univers E 20 mg 1-21 09-05 (1) ity of tablet 00:00: 00:00 TABLET(S) [place] 00 :00 BY MOUTH Medical ONCE A Branch DAY. VENLAFAXINE 2021-0 Yes [id number] TAKE 1 Univers 75 mg 1-06 TABLET ity of tablet 00:00: TWICE A Medical Branch METOPROLOL 2022-0 Yes [id number] TAKE 1 U nivers TARTRATE 50 1-06 TABLET ity of mg tablet 00:00: TWICE A Medical Branch METFORMIN 2022-0 Yes [id number] TAKE 1 U nivers 1,000 mg 1-06 TABLET ity of tablet 00:00: TWICE A [place] DAY WITH Medical MEALS Branch VENLAFAXINE 2-0 Yes [id number] TAKE 1 Univers 75 mg 1-06 TABLET ity of tablet 00:00: TWICE A Medical Branch METOPROLOL 2022-0 Yes [id number] TAKE 1 U nivers TARTRATE 50 1-06 TABLET ity of mg tablet 00:00: TWICE A Medical Branch METFORMIN 2022-0 Yes [id number] TAKE 1 U nivers 1,000 mg 1-06 TABLET ity of tablet 00:00: TWICE A WITH Medical MEALS Branch VENLAFAXINE 2022-0 Yes [id number] TAKE 1 Univers 75 mg 1-06 TABLET ity of tablet 00:00: TWICE A Medical Branch METOPROLOL 2022-0 Yes [id number] TAKE 1 U nivers TARTRATE 50 1-06 TABLET ity of mg tablet 00:00: TWICE A Medical Branch METFORMIN 2022-0 Yes [id number] TAKE 1 U nivers 1,000 mg 1-06 TABLET ity of tablet 00:00: TWICE A WITH Medical MEALS Branch VENLAFAXINE 2022-0 Yes [id number] TAKE 1 Univers 75 mg 1-06 TABLET ity of tablet 00:00: TWICE A Medical Branch METOPROLOL 2022-0 Yes [id number] TAKE 1 U nivers TARTRATE 50 1-06 TABLET ity of mg tablet 00:00: TWICE A Medical Branch METFORMIN 2022-0 Yes [id number] TAKE 1 U nivers 1,000 mg 1-06 TABLET ity of tablet 00:00: TWICE A WITH Medical MEALS Branch VENLAFAXINE 2022-0 Yes [id number] TAKE 1 Univers 75 mg 1-06 TABLET ity of tablet 00:00: TWICE A Medical Branch METOPROLOL 2022-0 Yes [id number] TAKE 1 U nivers TARTRATE 50 1-06 TABLET ity of mg tablet 00:00: TWICE A Medical Branch METFORMIN 2022-0 Yes [id number] TAKE 1 U nivers 1,000 mg 1-06 TABLET ity of tablet 00:00: TWICE A WITH Medical MEALS Branch VENLAFAXINE 2022-0 Yes [id number] TAKE 1 Univers 75 mg 1-06 TABLET ity of tablet 00:00: TWICE A Medical Branch METOPROLOL 2022-0 Yes [id number] TAKE 1 U nivers TARTRATE 50 1-06 TABLET ity of mg tablet 00:00: TWICE A Medical Branch METFORMIN 2022-0 Yes [id number] TAKE 1 U nivers 1,000 mg 1-06 TABLET ity of tablet 00:00: TWICE A WITH Medical MEALS Branch VENLAFAXINE 2022-0 Yes [id number] TAKE 1 Univers 75 mg 1-06 TABLET ity of tablet 00:00: TWICE A Medical Branch METOPROLOL 2021-0 Yes [id number] TAKE 1 U nivers TARTRATE 50 1-06 TABLET ity of mg tablet 00:00: TWICE A DAY Medical Branch METFORMIN 2021-0 Yes [id number] TAKE 1 U nivers 1,000 mg 1-06 TABLET ity of tablet 00:00: TWICE A DAY WITH Medical MEALS Branch VENLAFAXINE 2021- Yes [id number] TAKE 1 Univers 75 mg 1-06 TABLET ity of tablet 00:00: TWICE A DAY Medical Branch METOPROLOL 2021- Yes [id number] TAKE 1 U nivers TARTRATE 50 1-06 TABLET ity of mg tablet 00:00: TWICE A Medical Branch METFORMIN 2021-0 Yes [id number] TAKE 1 U nivers 1,000 mg 1-06 TABLET ity of tablet 00:00: TWICE A DAY WITH Medical MEALS Branch VENLAFAXINE 2021-0 2021- No [id number] TAKE 1 Univers 75 mg 1-06 07-05 TABLET ity of tablet 00:00: 00:00 TWICE A [place] 00 :00 DAY Medical Branch METOPROLOL 2021-0 2021- No [id number] TAKE 1 Univers TARTRATE 50 1-06 07-05 TABLET ity o f mg tablet 00:00: 00:00 [place] :[place] DAY Medical Branch METFORMIN 2021-0 2021- No [id number] TAKE 1 Univers 1,000 mg 1-06 07-05 TABLET ity of tablet 00:00: 00:00 TWICE A [place] 00 :00 DAY WITH Medical MEALS Branch LOSARTAN 2020-10 Yes [id number] TAKE 1 Univers mg tablet 1-15 TABLET ity of 00:00: DAILY [place] 00 (DISCONTIN Medical UE Branch LISINOPRIL ) LOSARTAN 2020-10 Yes [id number] TAKE 1 Univers mg tablet 1-15 TABLET ity of 00:00: DAILY [place] 00 (DISCONTIN Medical UE Branch LISINOPRIL ) LOSARTAN 2020-10 Yes [id number] TAKE 1 [facility] mg tablet 1-15 TABLET ity of 00:00: DAILY [place] 00 (DISCONTIN Medical UE Branch LISINOPRIL ) LOSARTAN 2020-10 Yes [id number] TAKE 1 Univers mg tablet 1-15 TABLET ity of 00:00: DAILY [place] 00 (DISCONTIN Medical UE Branch LISINOPRIL ) LOSARTAN 2020-10 Yes [id number] TAKE 1 Univers mg tablet 1-15 TABLET ity of 00:00: DAILY [place] 00 (DISCONTIN Medical UE Branch LISINOPRIL ) LOSARTAN 2020-10 Yes [id number] TAKE 1 Univers mg tablet 1-15 TABLET ity of 00:00: DAILY [place] 00 (DISCONTIN Medical UE Branch LISINOPRIL ) LOSARTAN 2020-10 Yes [id number] TAKE 1 [facility] mg tablet 1-15 TABLET ity of 00:00: DAILY [place] 00 (DISCONTIN Medical UE Branch LISINOPRIL ) LOSARTAN 2020-10 Yes [id number] TAKE 1 [facility] mg tablet 1-15 TABLET ity of 00:00: DAILY [place] 00 (DISCONTIN Medical UE Branch LISINOPRIL ) LOSARTAN 2020-10 Yes [id number] TAKE 1 Univers mg tablet 1-15 TABLET ity of 00:00: DAILY [place] 00 (DISCONTIN Medical UE Branch LISINOPRIL ) LOSARTAN 2020-10 Yes [id number] TAKE 1 Univers mg tablet 1-15 TABLET ity of 00:00: DAILY [place] 00 (DISCONTIN Medical UE Branch LISINOPRIL ) LOSARTAN 2020-10 Yes [id number] TAKE 1 Univers mg tablet 1-15 TABLET ity of 00:00: DAILY [place] 00 (DISCONTIN Medical UE Branch LISINOPRIL ) LOSARTAN 2020-10 Yes [id number] TAKE 1 Univers mg tablet 1-15 TABLET ity of 00:00: DAILY [place] 00 (DISCONTIN Medical UE Branch LISINOPRIL ) LOSARTAN 2020-10 Yes [id number] TAKE 1 Univers mg tablet 1-15 TABLET ity of 00:00: DAILY [place] 00 (DISCONTIN Medical UE Branch LISINOPRIL ) LOSARTAN 2020-10 Yes [id number] TAKE 1 Univers mg tablet 1-15 TABLET ity of 00:00: DAILY [place] 00 (DISCONTIN Medical UE Branch LISINOPRIL ) LOSARTAN 2020-10 Yes [id number] TAKE 1 Univers mg tablet 1-15 TABLET ity of 00:00: DAILY [place] 00 (DISCONTIN Medical UE Branch LISINOPRIL ) LOSARTAN 2020-10 Yes [id number] TAKE 1 Univers mg tablet 1-15 TABLET ity of 00:00: DAILY [place] 00 (DISCONTIN Medical UE Branch LISINOPRIL ) LOSARTAN 2020-10 Yes [id number] TAKE 1 Univers mg tablet 1-15 TABLET ity of 00:00: DAILY [place] 00 (DISCONTIN Medical UE Branch LISINOPRIL ) LOSARTAN 2020-10 Yes [id number] TAKE 1 Univers mg tablet 1-15 TABLET ity of 00:00: DAILY [place] 00 (DISCONTIN Medical UE Branch LISINOPRIL ) LOSARTAN 2020-10 Yes [id number] TAKE 1 Univers mg tablet 1-15 TABLET ity of 00:00: DAILY [place] 00 (DISCONTIN Medical UE Branch LISINOPRIL ) LOSARTAN 2020-10 Yes [id number] TAKE 1 [facility] mg tablet 1-15 TABLET ity of 00:00: DAILY [place] 00 (DISCONTIN Medical UE Branch LISINOPRIL ) LOSARTAN 2020-10 Yes [id number] TAKE 1 Univers mg tablet 1-15 TABLET ity of 00:00: DAILY [place] 00 (DISCONTIN Medical UE Branch LISINOPRIL ) LOSARTAN 2020-10 Yes [id number] TAKE 1 Univers mg tablet 1-15 TABLET ity of 00:00: DAILY [place] 00 (DISCONTIN Medical UE Branch LISINOPRIL ) LOSARTAN 2020-10 Yes [id number] TAKE 1 [facility] mg tablet 1-15 TABLET ity of 00:00: DAILY [place] 00 (DISCONTIN Medical UE Branch LISINOPRIL ) LOSARTAN 2020-10 Yes [id number] TAKE 1 Univers mg tablet 1-15 TABLET ity of 00:00: DAILY [place] 00 (DISCONTIN Medical UE Branch LISINOPRIL ) LOSARTAN 2020-10 Yes [id number] TAKE 1 Univers mg tablet 1-15 TABLET ity of 00:00: DAILY [place] 00 (DISCONTIN Medical UE Branch LISINOPRIL ) LOSARTAN 2020-10 Yes [id number] TAKE 1 [facility] mg tablet 1-15 TABLET ity of 00:00: DAILY [place] 00 (DISCONTIN Medical UE Branch LISINOPRIL ) LOSARTAN 2020-10 Yes [id number] TAKE 1 [facility] mg tablet 1-15 TABLET ity of 00:00: DAILY [place] 00 (DISCONTIN Medical UE Branch LISINOPRIL ) LOSARTAN 2020-10 Yes [id number] TAKE 1 [facility] mg tablet 1-15 TABLET ity of 00:00: DAILY [place] 00 (DISCONTIN Medical UE Branch LISINOPRIL ) LOSARTAN 2020-10- No [id number] TAKE 1 [facility] mg tablet 1-15 11-10 TABLET ity of 00:00: 00:00 DAILY [place] 00 :00 (DISCONTIN Medical UE Branch LISINOPRIL ) ibuprofen 2021-0 Yes 200mg Take 200 Uni vers 200 mg 8-27 mg by ity of tablet 09:45: mouth [place] 44 every 6 Medical (six) Branch hours as needed. ibuprofen 2021-0 Yes 200mg Take 200 Uni vers 200 mg 8-27 mg by ity of tablet 09:45: mouth [place] 44 every 6 Medical (six) Branch hours as needed. ibuprofen 2021-0 Yes 200mg Take 200 Uni vers 200 mg 8-27 mg by ity of tablet 09:45: mouth [place] 44 every 6 Medical (six) Branch hours as needed. ibuprofen 2021-0 Yes 200mg Take 200 Uni vers 200 mg 8-27 mg by ity of tablet 09:45: mouth [place] 44 every 6 Medical (six) Branch hours as needed. ibuprofen 2021-0 Yes 200mg Take 200 Uni vers 200 mg 8-27 mg by ity of tablet 09:45: mouth [place] 44 every 6 Medical (six) Branch hours as needed. ibuprofen 2021-0 Yes 200mg Take 200 Uni vers 200 mg 8-27 mg by ity of tablet 09:45: mouth [place] 44 every 6 Medical (six) Branch hours as needed. ibuprofen 2021-0 Yes 200mg Take 200 Uni vers 200 mg 8-27 mg by ity of tablet 09:45: mouth [place] 44 every 6 Medical (six) Branch hours as needed. ibuprofen 2021-0 Yes 200mg Take 200 Uni vers 200 mg 8-27 mg by ity of tablet 09:45: mouth [place] 44 every 6 Medical (six) Branch hours as needed. ibuprofen 2021-0 Yes 200mg Take 200 Uni vers 200 mg 8-27 mg by ity of tablet 09:45: mouth [place] 44 every 6 Medical (six) Branch hours as needed. ibuprofen 2021-0 Yes 200mg Take 200 Uni vers 200 mg 8-27 mg by ity of tablet 09:45: mouth [place] 44 every 6 Medical (six) Branch hours as needed. ibuprofen 2021-0 Yes 200mg Take 200 Uni vers 200 mg 8-27 mg by ity of tablet 09:45: mouth [place] 44 every 6 Medical (six) Branch hours as needed. ibuprofen 2021-0 Yes 200mg Take 200 Uni vers 200 mg 8-27 mg by ity of tablet 09:45: mouth [place] 44 every 6 Medical (six) Branch hours as needed. ibuprofen 2021-0 Yes 200mg Take 200 Uni vers 200 mg 8-27 mg by ity of tablet 09:45: mouth [place] 44 every 6 Medical (six) Branch hours as needed. ibuprofen 2021-0 Yes 200mg Take 200 Uni vers 200 mg 8-27 mg by ity of tablet 09:45: mouth [place] 44 every 6 Medical (six) Branch hours as needed. ibuprofen 2021-0 Yes 200mg Take 200 [facility] vers 200 mg 8-27 mg by ity of tablet 09:45: mouth [place] 44 every 6 Medical (six) Branch hours as needed. ibuprofen 2021-0 Yes 200mg Take 200 [facility] vers 200 mg 8-27 mg by ity of tablet 09:45: mouth [place] 44 every 6 Medical (six) Branch hours as needed. ibuprofen 2021-0 Yes 200mg Take 200 [facility] vers 200 mg 8-27 mg by ity of tablet 09:45: mouth [place] 44 every 6 Medical (six) Branch hours as needed. ibuprofen 2021-0 Yes 200mg Take 200 [facility] vers 200 mg 8-27 mg by ity of tablet 09:45: mouth [place] 44 every 6 Medical (six) Branch hours as needed. ibuprofen 2021-0 Yes 200mg Take 200 [facility] vers 200 mg 8-27 mg by ity of tablet 09:45: mouth [place] 44 every 6 Medical (six) Branch hours as needed. ibuprofen 2021-0 Yes 200mg Take 200 [facility] vers 200 mg 8-27 mg by ity of tablet 09:45: mouth [place] 44 every 6 Medical (six) Branch hours as needed. ibuprofen 2021-0 Yes 200mg Take 200 [facility] vers 200 mg 8-27 mg by ity of tablet 09:45: mouth [place] 44 every 6 Medical (six) Branch hours as needed. ibuprofen 2021-0 Yes 200mg Take 200 [facility] vers 200 mg 8-27 mg by ity of tablet 09:45: mouth [place] 44 every 6 Medical (six) Branch hours as needed. ibuprofen 2021-0 Yes 200mg Take 200 [facility] vers 200 mg 8-27 mg by ity of tablet 09:45: mouth [place] 44 every 6 Medical (six) Branch hours as needed. ibuprofen 2021-0 Yes 200mg Take 200 [facility] vers 200 mg 8-27 mg by ity of tablet 09:45: mouth [place] 44 every 6 Medical (six) Branch hours as needed. ibuprofen 2021-0 Yes 200mg Take 200 [facility] vers 200 mg 8-27 mg by ity of tablet 09:45: mouth [place] 44 every 6 Medical (six) Branch hours as needed. ibuprofen 2021-0 Yes 200mg Take 200 [facility] vers 200 mg 8-27 mg by ity of tablet 09:45: mouth [place] 44 every 6 Medical (six) Branch hours as needed. ibuprofen 2021-0 Yes 200mg Take 200 [facility] vers 200 mg 8-27 mg by ity of tablet 09:45: mouth [place] 44 every 6 Medical (six) Branch hours as needed. ibuprofen 2021-0 Yes 200mg Take 200 [facility] vers 200 mg 8-27 mg by ity of tablet 09:45: mouth [place] 44 every 6 Medical (six) Branch hours as needed. ibuprofen 2021-0 Yes 200mg Take 200 [facility] vers 200 mg 8-27 mg by ity of tablet 09:45: mouth [place] 44 every 6 Medical (six) Branch hours as needed. ibuprofen 2021-0 Yes 200mg Take 200 [facility] vers 200 mg 8-27 mg by ity of tablet 09:45: mouth [place] 44 every 6 Medical (six) Branch hours as needed. ibuprofen 2021-0 Yes 200mg Take 200 [facility] vers 200 mg 8-27 mg by ity of tablet 09:45: mouth [place] 44 every 6 Medical (six) Branch hours as needed. ibuprofen 2021-0 Yes 200mg Take 200 [facility] vers 200 mg 8-27 mg by ity of tablet 09:45: mouth [place] 44 every 6 Medical (six) Branch hours as needed. ibuprofen 2021-0 Yes 200mg Take 200 [facility] vers 200 mg 8-27 mg by ity of tablet 09:45: mouth [place] 44 every 6 Medical (six) Branch hours as needed. bromphenira 2021-0 Yes [id number] 5mL Take 5 mL [facility] mine-pseudo 5-26 by mouth 4 it y of ephedrine-D 00:00: (four) [place]ie Ledesma (BROMFED 00 times Medical DM) 2-30-10 daily as Bran ch mg/5 mL needed for syrup Congestion /Allergies or Cough. bromphenira 2021-0 Yes [id number] 5mL Take 5 mL [facility] mine-pseudo 5-26 by mouth 4 it y of ephedrine-D 00:00: (four) [place] (BROMFED 00 times Medical DM) 2-30-10 daily as Bran ch mg/5 mL needed for syrup Congestion /Allergies or Cough. bromphenira 2021-0 Yes [id number] 5mL Take 5 mL [facility] mine-pseudo 5-26 by mouth 4 it y of ephedrine-D 00:00: (four) [place] (BROMFED 00 times Medical DM) 2-30-10 daily as Bran ch mg/5 mL needed for syrup Congestion /Allergies or Cough. bromphenira 2021-0 Yes [id number] 5mL Take 5 mL [facility] mine-pseudo 5-26 by mouth 4 it y of ephedrine-D 00:00: (four) [place] (BROMFED 00 times Medical DM) 2-30-10 daily as Bran ch mg/5 mL needed for syrup Congestion /Allergies or Cough. bromphenira 1-0 Yes [id number] 5mL Take 5 mL [facility] mine-pseudo 5-26 by mouth 4 it y of ephedrine-D 00:00: (four) [place] (BROMFED 00 times Medical DM) 2-30-10 daily as Bran ch mg/5 mL needed for syrup Congestion /Allergies or Cough. bromphenira 1-0 Yes [id number] 5mL Take 5 mL [facility] mine-pseudo 5-26 by mouth 4 it y of ephedrine-D 00:00: (four) [place] (BROMFED 00 times Medical DM) 2-30-10 daily as Bran ch mg/5 mL needed for syrup Congestion /Allergies or Cough. bromphenira 2021-0 Yes [id number] 5mL Take 5 mL [facility] mine-pseudo 5-26 by mouth 4 it y of ephedrine-D 00:00: (four) [place] (BROMFED 00 times Medical DM) 2-30-10 daily as Bran ch mg/5 mL needed for syrup Congestion /Allergies or Cough. bromphenira 2021-0 Yes [id number] 5mL Take 5 mL [facility] mine-pseudo 5-26 by mouth 4 it y of ephedrine-D 00:00: (four) [place] (BROMFED 00 times Medical DM) 2-30-10 daily as Bran ch mg/5 mL needed for syrup Congestion /Allergies or Cough. bromphenira 2021-0 Yes [id number] 5mL Take 5 mL [facility] mine-pseudo 5-26 by mouth 4 it y of ephedrine-D 00:00: (four) [place] (BROMFED 00 times Medical DM) 2-30-10 daily as Bran ch mg/5 mL needed for syrup Congestion /Allergies or Cough. bromphenira 2020-0 Yes [id number] 5mL Take 5 mL [facility] mine-pseudo 5-26 by mouth 4 it y of ephedrine-D 00:00: (four) [place] (BROMFED 00 times Medical DM) 2-30-10 daily as Bran ch mg/5 mL needed for syrup Congestion /Allergies or Cough. bromphenira 2020-0 Yes [id number] 5mL Take 5 mL [facility] mine-pseudo 5-26 by mouth 4 it y of ephedrine-D 00:00: (four) [place] (BROMFED 00 times Medical DM) 2-30-10 daily as Bran ch mg/5 mL needed for syrup Congestion /Allergies or Cough. bromphenira 2020-0 Yes [id number] 5mL Take 5 mL [facility] mine-pseudo 5-26 by mouth 4 it y of ephedrine-D 00:00: (four) [place] (BROMFED 00 times Medical DM) 2-30-10 daily as Bran ch mg/5 mL needed for syrup Congestion /Allergies or Cough. bromphenira 2020-0 Yes [id number] 5mL Take 5 mL [facility] mine-pseudo 5-26 by mouth 4 it y of ephedrine-D 00:00: (four) [place] (BROMFED 00 times Medical DM) 2-30-10 daily as Bran ch mg/5 mL needed for syrup Congestion /Allergies or Cough. bromphenira 2020-0 2- No [id number] 5mL Take 5 mL [facility] mine-pseudo 5-26 09-05 by mouth 4 i ty of ephedrine-D 00:00: 00:00 (four) [place] (BROMFED 00 :00 times Medical DM) 2-30-10 daily as Bran ch mg/5 mL needed for syrup Congestion /Allergies or Cough. HYDROCHLORO 2020-0 Yes [id number] TAKE 1 U nivers THIAZIDE 25 3-15 TABLET ity of mg tablet 00:00: DAILY [address] HYDROCHLORO 2020-0 Yes [id number] TAKE 1 U nivers THIAZIDE 25 3-15 TABLET ity of mg tablet 00:00: DAILY [place] 00 [facility] [facility] HYDROCHLORO 2020-0 2022- No [id number] TAKE 1 Univers THIAZIDE 25 3-15 02-14 TABLET ity o f mg tablet 00:00: 00:00 DAILY [place] 00 :00 [facility] ROSUVASTATI 2020-0 Yes [id number] TAKE ONE Univers N 10 mg 3-04 (1) ity of tablet 00:00: TABLET(S) [place] 00 BY MOUTH Medical AT [facility]. ROSUVASTATI 2020-0 Yes [id number] TAKE ONE Univers N 10 mg 3-04 (1) ity of tablet 00:00: TABLET(S) [place] 00 BY MOUTH Medical AT [facility]. ROSUVASTATI 2020-0 Yes [id number] TAKE ONE Univers N 10 mg 3-04 (1) ity of tablet 00:00: TABLET(S) [place] 00 BY [facility] Medical AT [facility]. ROSUVASTATI 2020-0 Yes [id number] TAKE ONE Univers N 10 mg 3-04 (1) ity of tablet 00:00: TABLET(S) [place] 00 BY [facility] Medical AT [facility]. ROSUVASTATI 2020-0 Yes [id number] TAKE ONE Univers N 10 mg 3-04 (1) ity of tablet 00:00: TABLET(S) [place] 00 BY [facility] Medical AT [facility]. ROSUVASTATI 2020-0 Yes [id number] TAKE ONE Univers N 10 mg 3-04 (1) ity of tablet 00:00: TABLET(S) [place] 00 BY [facility] Medical AT [facility]. ROSUVASTATI 2020-0 Yes [id number] TAKE ONE Univers N 10 mg 3-04 (1) ity of tablet 00:00: TABLET(S) [place] 00 BY MOUTH Medical AT [facility]. ROSUVASTATI 2020-0 Yes [id number] TAKE ONE Univers N 10 mg 3-04 (1) ity of tablet 00:00: TABLET(S) [place] 00 BY MOUTH Medical AT [facility]. ROSUVASTATI 2020-0 Yes [id number] TAKE ONE Univers N 10 mg 3-04 (1) ity of tablet 00:00: TABLET(S) [place] 00 BY MOUTH Medical AT [facility]. ROSUVASTATI 2020-0 Yes [id number] TAKE ONE Univers N 10 mg 3-04 (1) ity of tablet 00:00: TABLET(S) [place] 00 BY MOUTH Medical AT [facility]. ROSUVASTATI 2020-0 Yes [id number] TAKE ONE Univers N 10 mg 3-04 (1) ity of tablet 00:00: TABLET(S) [place] 00 BY MOUTH Medical AT [facility]. ROSUVASTATI 2020-0 Yes [id number] TAKE ONE Univers N 10 mg 3-04 (1) ity of tablet 00:00: TABLET(S) [place] 00 BY MOUTH Medical AT [facility]. ROSUVASTATI 2020-0 Yes [id number] TAKE ONE Univers N 10 mg 3-04 (1) ity of tablet 00:00: TABLET(S) [place] 00 BY MOUTH Medical AT [facility]. ROSUVASTATI 2020-0 Yes [id number] TAKE ONE Univers N 10 mg 3-04 (1) ity of tablet 00:00: TABLET(S) [place] 00 BY MOUTH Medical AT [facility]. ROSUVASTATI 2020-0 Yes [id number] TAKE ONE Univers N 10 mg 3-04 (1) ity of tablet 00:00: TABLET(S) [place] 00 BY MOUTH Medical AT [facility]. ROSUVASTATI 2020-0 2022- No [id number] TAKE ONE Univers N 10 mg 3-04 09-12 (1) ity of tablet 00:00: 00:00 TABLET(S) [place] 00 :00 BY MOUTH Medical AT [facility]. nitroglycer 2018-[address] 1 Uni vers in 0.4 mg 7-18 tablet ity of sublingual 00:00: under the [place] tablet 00 tongue Medical every 5 Branch (five) minutes as needed for Chest pain. nitroglycer 2018-[address] 1 Uni vers in 0.4 mg 7-18 tablet ity of sublingual 00:00: under the [place] tablet 00 tongue Medical every 5 Branch (five) minutes as needed for Chest pain. nitroglycer 2018-[address] 1 Uni vers in 0.4 mg 7-18 tablet ity of sublingual 00:00: under the [place] tablet 00 tongue Medical every 5 Branch (five) minutes as needed for Chest pain. nitroglycer 2018-[address] 1 Uni vers in 0.4 mg 7-18 tablet ity of sublingual 00:00: under the [place] tablet 00 tongue Medical every 5 Branch (five) minutes as needed for Chest pain. nitroglycer 2018-[address] 1 Uni vers in 0.4 mg 7-18 tablet ity of sublingual 00:00: under the [place] tablet 00 tongue Medical every 5 Branch (five) minutes as needed for Chest pain. nitroglycer 2018-[address] 1 Uni vers in 0.4 mg 7-18 tablet ity of sublingual 00:00: under the [place] tablet 00 tongue Medical every 5 Branch (five) minutes as needed for Chest pain. nitroglycer 2018-[address] 1 Uni vers in 0.4 mg 7-18 tablet ity of sublingual 00:00: under the [place] tablet 00 tongue Medical every 5 Branch (five) minutes as needed for Chest pain. nitroglycer 2018-[address] 1 Uni vers in 0.4 mg 7-18 tablet ity of sublingual 00:00: under the [place] tablet 00 tongue Medical every 5 Branch (five) minutes as needed for Chest pain. nitroglycer 2018-[address] 1 Uni vers in 0.4 mg 7-18 tablet ity of sublingual 00:00: under the [place] tablet 00 tongue Medical every 5 Branch (five) minutes as needed for Chest pain. nitroglycer 2018-[address] 1 Uni vers in 0.4 mg 7-18 tablet ity of sublingual 00:00: under the [place] tablet 00 tongue Medical every 5 Branch (five) minutes as needed for Chest pain. nitroglycer 2018-[address] 1 Uni vers in 0.4 mg 7-18 tablet ity of sublingual 00:00: under the [place] tablet 00 tongue Medical every 5 Branch (five) minutes as needed for Chest pain. nitroglycer 2018-[address] 1 Uni vers in 0.4 mg 7-18 tablet ity of sublingual 00:00: under the [place] tablet 00 tongue Medical every 5 Branch (five) minutes as needed for Chest pain. nitroglycer 2018-[address] 1 Uni vers in 0.4 mg 7-18 tablet ity of sublingual 00:00: under the [place] tablet 00 tongue Medical every 5 Branch (five) minutes as needed for Chest pain. nitroglycer 2018-[address] 1 Uni vers in 0.4 mg 7-18 tablet ity of sublingual 00:00: under the [place] tablet 00 tongue Medical every 5 Branch (five) minutes as needed for Chest pain. nitroglycer 2018-[address] 1 Uni vers in 0.4 mg 7-18 tablet ity of sublingual 00:00: under the [place] tablet 00 tongue Medical every 5 Branch (five) minutes as needed for Chest pain. nitroglycer 2018-[address] 1 Uni vers in 0.4 mg 7-18 tablet ity of sublingual 00:00: under the [place] tablet 00 tongue Medical every 5 Branch (five) minutes as needed for Chest pain. nitroglycer 2018-[address] 1 Uni vers in 0.4 mg 7-18 tablet ity of sublingual 00:00: under the [place] tablet 00 tongue Medical every 5 Branch (five) minutes as needed for Chest pain. nitroglycer 2018-[address] 1 Uni vers in 0.4 mg 7-18 tablet ity of sublingual 00:00: under the [place] tablet 00 tongue Medical every 5 Branch (five) minutes as needed for Chest pain. nitroglycer 2018-[address] 1 Uni vers in 0.4 mg 7-18 tablet ity of sublingual 00:00: under the [place] tablet 00 tongue Medical every 5 Branch (five) minutes as needed for Chest pain. nitroglycer 2018-[address] 1 Uni vers in 0.4 mg 7-18 tablet ity of sublingual 00:00: under the [place] tablet 00 tongue Medical every 5 Branch (five) minutes as needed for Chest pain. nitroglycer 2018-[address] 1 Uni vers in 0.4 mg 7-18 tablet ity of sublingual 00:00: under the [place] tablet 00 tongue Medical every 5 Branch (five) minutes as needed for Chest pain. nitroglycer 2018-[address] 1 Uni vers in 0.4 mg 7-18 tablet ity of sublingual 00:00: under the [place] tablet 00 tongue Medical every 5 Branch (five) minutes as needed for Chest pain. nitroglycer 2018-[address] 1 Uni vers in 0.4 mg 7-18 tablet ity of sublingual 00:00: under the [place] tablet 00 tongue Medical every 5 Branch (five) minutes as needed for Chest pain. nitroglycer 2018-[address] 1 Uni vers in 0.4 mg 7-18 tablet ity of sublingual 00:00: under the [place] tablet 00 tongue Medical every 5 Branch (five) minutes as needed for Chest pain. nitroglycer 2018-[address] 1 Uni vers in 0.4 mg 7-18 tablet ity of sublingual 00:00: under the [place] tablet 00 tongue Medical every 5 Branch (five) minutes as needed for Chest pain. nitroglycer 2018-[address] 1 Uni vers in 0.4 mg 7-18 tablet ity of sublingual 00:00: under the [place] tablet 00 tongue Medical every 5 Branch (five) minutes as needed for Chest pain. nitroglycer 2018-[address] 1 Uni vers in 0.4 mg 7-18 tablet ity of sublingual 00:00: under the [place] tablet 00 tongue Medical every 5 Branch (five) minutes as needed for Chest pain. nitroglycer 2018-[address] 1 Uni vers in 0.4 mg 7-18 tablet ity of sublingual 00:00: under the [place] tablet 00 tongue Medical every 5 Branch (five) minutes as needed for Chest pain. nitroglycer 2018-[address] 1 Uni vers in 0.4 mg 7-18 tablet ity of sublingual 00:00: under the [place] tablet 00 tongue Medical every 5 Branch (five) minutes as needed for Chest pain. nitroglycer 2018-[address] 1 Uni vers in 0.4 mg 7-18 tablet ity of sublingual 00:00: under the [place] tablet 00 tongue Medical every 5 Branch (five) minutes as needed for Chest pain. nitroglycer 2018-[address] 1 Uni vers in 0.4 mg 7-18 tablet ity of sublingual 00:00: under the [place] tablet 00 tongue Medical every 5 Branch (five) minutes as needed for Chest pain. nitroglycer 2018-[address] 1 Uni vers in 0.4 mg 7-18 tablet ity of sublingual 00:00: under the [place] tablet 00 tongue Medical every 5 Branch (five) minutes as needed for Chest pain. nitroglycer 2017-[address] 1 Uni vers in 0.4 mg 7-18 tablet ity of sublingual 00:00: under the [place] tablet [address] [place] [address] 5 Branch (five) minutes as needed for Chest pain. OMEPRAZOLE 0 Yes TAKE 1 Unive rs 20 mg 5-22 CAPSULE ity of capsule 00:00: DAILY [place] [facility] OMEPRAZOLE 2017-0 Yes TAKE 1 Unive rs 20 mg 5-22 CAPSULE ity of capsule 00:00: DAILY [place] [facility] OMEPRAZOLE 2017-0 Yes TAKE 1 Unive rs 20 mg 5-22 CAPSULE ity of capsule 00:00: DAILY [place] [facility] OMEPRAZOLE 2017-0 Yes TAKE 1 Unive rs 20 mg 5-22 CAPSULE ity of capsule 00:00: DAILY [place] [facility] OMEPRAZOLE 2017-0 Yes TAKE 1 Unive rs 20 mg 5-22 CAPSULE ity of capsule 00:00: DAILY [place] [facility] OMEPRAZOLE 2017-0 Yes TAKE 1 Unive rs 20 mg 5-22 CAPSULE ity of capsule 00:00: DAILY [place] [facility] OMEPRAZOLE 2017-0 Yes TAKE 1 Unive rs 20 mg 5-22 CAPSULE ity of capsule 00:00: DAILY [place] [facility] OMEPRAZOLE 2018-0 Yes TAKE 1 Unive rs 20 mg 5-22 CAPSULE ity of capsule 00:00: DAILY [place] [facility] OMEPRAZOLE 2017-0 Yes TAKE 1 Unive rs 20 mg 5-22 CAPSULE ity of capsule 00:00: DAILY [place] [facility] OMEPRAZOLE 2017-0 Yes TAKE 1 Unive rs 20 mg 5-22 CAPSULE ity of capsule 00:00: DAILY [place] [facility] OMEPRAZOLE 2018-0 Yes TAKE 1 Unive rs 20 mg 5-22 CAPSULE ity of capsule 00:00: DAILY [place] [facility] OMEPRAZOLE 2017-0 Yes TAKE 1 Unive rs 20 mg 5-22 CAPSULE ity of capsule 00:00: DAILY [place] [facility] OMEPRAZOLE 2017-0 Yes TAKE 1 Unive rs 20 mg 5-22 CAPSULE ity of capsule 00:00: DAILY [place] [facility] OMEPRAZOLE 2017-0 Yes TAKE 1 Unive rs 20 mg 5-22 CAPSULE ity of capsule 00:00: DAILY [place] [facility] OMEPRAZOLE 2018-0 Yes TAKE 1 Unive rs 20 mg 5-22 CAPSULE ity of capsule 00:00: DAILY Medical Branch OMEPRAZOLE 2018-0 Yes TAKE 1 Unive rs 20 mg 5-22 CAPSULE ity of capsule 00:00: DAILY Medical Branch OMEPRAZOLE 2018-0 Yes TAKE 1 Unive rs 20 mg 5-22 CAPSULE ity of capsule 00:00: DAILY [facility] OMEPRAZOLE 2018-0 Yes TAKE 1 Unive rs 20 mg 5-22 CAPSULE ity of capsule 00:00: DAILY [facility] OMEPRAZOLE 2018-0 Yes TAKE 1 Unive rs 20 mg 5-22 CAPSULE ity of capsule 00:00: DAILY [facility] Branch OMEPRAZOLE 2018-0 Yes TAKE 1 Unive rs 20 mg 5-22 CAPSULE ity of capsule 00:00: DAILY [facility] Branch OMEPRAZOLE 2018-0 Yes TAKE 1 Unive rs 20 mg 5-22 CAPSULE ity of capsule 00:00: DAILY [facility] Branch OMEPRAZOLE 2018-0 Yes TAKE 1 Unive rs 20 mg 5-22 CAPSULE ity of capsule 00:00: DAILY [facility] OMEPRAZOLE 2018-0 Yes TAKE 1 Unive rs 20 mg 5-22 CAPSULE ity of capsule 00:00: DAILY [facility] Branch OMEPRAZOLE 2018-0 Yes TAKE 1 Unive rs 20 mg 5-22 CAPSULE ity of capsule 00:00: DAILY [facility] OMEPRAZOLE 2018-0 Yes TAKE 1 Unive rs 20 mg 5-22 CAPSULE ity of capsule 00:00: DAILY [facility] Branch OMEPRAZOLE 2018-0 Yes TAKE 1 Unive rs 20 mg 5-22 CAPSULE ity of capsule 00:00: DAILY [facility] OMEPRAZOLE 2018-0 Yes TAKE 1 Unive rs 20 mg 5-22 CAPSULE ity of capsule 00:00: DAILY Medical Branch OMEPRAZOLE 2018-0 Yes TAKE 1 Unive rs 20 mg 5-22 CAPSULE ity of capsule 00:00: DAILY [facility] Branch OMEPRAZOLE 2018-0 Yes TAKE 1 Unive rs 20 mg 5-22 CAPSULE ity of capsule 00:00: DAILY [facility] Branch OMEPRAZOLE 2018-0 Yes TAKE 1 Unive rs 20 mg 5-22 CAPSULE ity of capsule 00:00: DAILY [facility] OMEPRAZOLE 2018-0 Yes TAKE 1 Unive rs 20 mg 5-22 CAPSULE ity of capsule 00:00: DAILY [facility] Branch OMEPRAZOLE 2018-0 Yes TAKE 1 Unive rs 20 mg 5-22 CAPSULE ity of capsule 00:00: DAILY [address] OMEPRAZOLE 2018-0 Yes TAKE 1 Unive rs 20 mg 5-22 CAPSULE ity of capsule 00:00: DAILY [address] Immunizations Ordered Immunization Filled Immunization Date Status Commen ts Source Name Name Pneumococcal 2023-01-08 Completed Alejandra Harrison ld - Conjugate 15 00:00:00 External (Vaxneuvance) Pneumococcal 2023-01-08 Completed Alejandra Harrison ld - Conjugate 15 00:00:00 External (Vaxneuvance) Pneumococcal 2023-01-08 Completed Alejandra Reynosoo ld - Conjugate 15 00:00:00 External (Vaxneuvance) Shingles IM 2022-12-19 Completed Alejandra Wilson d - (Shingrix) 00:00:00 External Covid-19 Vaccine 2022-12-19 Completed Alejandra gordon - (Variab.ly), Mrna-lnp, 00:00:00 Exter nal [place] Protein, Pf, 30mcg/0.3ml,IM Shingles IM 2022-12-19 Completed Alejandra Wilson d - (Shingrix) 00:00:00 External Covid-19 Vaccine 2022-12-19 Completed Alejandra gordon - (Variab.ly), Mrna-lnp, 00:00:00 Exter nal [place] Protein, Pf, 30mcg/0.3ml,IM Shingles IM 2022-12-19 Completed Alejandra Reynosool d - (Shingrix) 00:00:00 External Covid-19 Vaccine 2022-12-19 Completed Alejandra gordon - (Variab.ly), Mrna-lnp, 00:00:00 Exter nal [place] Protein, Pf, 30mcg/0.3ml,IM Lab Evidence Of 2022-11-17 Completed Alejandra Leonard Immunity - Varicella 00:00:00 Exte rnal Lab Evidence Of 2022-11-17 Completed Alejandra bah - Immunity - Hepatitis 00:00:00 Exte rnal B MMR- Measles, Mumps, 2022-11-17 Shemar Piper - Rubella 00:00:00 External Lab Evidence Of 2022-11-17 Completed Alejandra bah - Immunity - Varicella 00:00:00 Exte rnal Lab Evidence Of 2022-11-17 Completed Alejandra camposold - Immunity - Hepatitis 00:00:00 Exte rnal B MMR- Measles, Mumps, 2022-11-17 Completed Ivy Reynosoold - Rubella 00:00:00 External Lab Evidence Of 2022-11-17 Completed Alejandra bah - Immunity - Varicella 00:00:00 Exte rnal Lab Evidence Of 2022-11-17 Completed Alejandra bah - Immunity - Hepatitis 00:00:00 Exte rnal B MMR- Measles, Mumps, 2022-11-17 Completed Ivy Piper - Rubella 00:00:00 External PPD-Protein 2022-11-14 Completed Alejandra Vanceybol d - Derivative 00:00:00 External (Purified)- Tuberculin PPD-Protein 2022-11-14 Completed Alejandra Vanceybol d - Derivative 00:00:00 External (Purified)- Tuberculin PPD-Protein 2022-11-14 Completed Alejandra Vanceybol d - Derivative 00:00:00 External (Purified)- Tuberculin Influenza Virus 2022-07-18 Completed [facility] Vaccine [facility] IM, 00:00:00 [place] [facility]ical Preserv and ABX Free Bran ch 6 MO-64 YRS Influenza Virus 2022-07-18 Completed Universit y of Vaccine [facility] IM, 00:00:00 [place] Me dical Preserv and ABX Free Bran ch 6 MO-64 YRS Influenza Virus 2022-07-18 Completed Universit y of Vaccine [facility] IM, 00:00:00 [place] Me dical Preserv and ABX Free Bran ch 6 MO-64 YRS Influenza Virus 2022-07-18 Completed Universit y of Vaccine [facility] IM, 00:00:00 [place] Me dical Preserv and ABX Free Bran ch 6 MO-64 YRS Influenza Virus 2022-07-18 Completed Universit y of Vaccine Quad IM, 00:00:00 [place] Me dical Preserv and ABX Free Bran ch 6 MO-64 YRS Influenza Virus 2022-07-18 Completed Universit y of Vaccine [facility] IM, 00:00:00 [place] Me dical Preserv and ABX Free Bran ch 6 MO-64 YRS Influenza Virus 2022-07-18 Completed Universit y of Vaccine [facility] IM, 00:00:00 [place] Me dical Preserv and ABX Free Bran ch 6 MO-64 YRS Influenza Virus 2022-07-18 Completed Universit y of Vaccine [facility] IM, 00:00:00 [place] Ak dical Preserv and ABX Free Bran ch 6 MO-64 YRS Influenza Virus 2022-07-18 Completed Universit y of Vaccine Quad IM, 00:00:00 [place] Ak dical Preserv and ABX Free Bran ch 6 MO-64 YRS Influenza, 2022-07-18 Completed Alejandra Seybold - Injectable, Mdck, 00:00:00 Externa l Preservative Free, Quadrivalt Influenza, 2022-07-18 Completed Alejandra Seybold - Injectable, Mdck, 00:00:00 Externa l Preservative Free, Quadrivalt Influenza, 2022-07-18 Completed Alejandra Seybold - Injectable, Mdck, 00:00:00 Externa l Preservative Free, Quadrivalt SARS-COV-2 COVID-19 2021-01-19 Completed Unive rsity of SHANNAN/J&J VACCINE 00:00:00 [facility] SARS-COV-2 COVID-19 2021-01-19 Completed Unive rsity of SHANNAN/J&J VACCINE 00:00:00 [facility] SARS-COV-2 COVID-19 2021-01-19 Completed Unive rsity of SHANNAN/J&J VACCINE 00:00:00 [facility] SARS-COV-2 COVID-19 2021-01-19 Completed Unive rsity of SHANNAN/J&J VACCINE 00:00:00 [facility] SARS-COV-2 COVID-19 2021-01-19 Completed Unive rsity of SHANNAN/J&J VACCINE 00:00:00 [facility] SARS-COV-2 COVID-19 2021-01-19 Completed Unive rsity of SHANNAN/J&J VACCINE 00:00:00 [facility] SARS-COV-2 COVID-19 2021-01-19 Completed Unive rsity of SHANNAN/J&J VACCINE 00:00:00 [facility] SARS-COV-2 COVID-19 2021-01-19 Completed Unive rsity of SHANNAN/J&J VACCINE 00:00:00 [facility] SARS-COV-2 COVID-19 2021-01-19 Completed Unive rsity of SHANNAN/J&J VACCINE 00:00:00 [facility] SARS-COV-2 COVID-19 2021-01-19 Completed Unive rsity of SHANNAN/J&J VACCINE 00:00:00 [facility] SARS-COV-2 COVID-19 2021-01-19 Completed Unive rsity of SHANNAN/J&J VACCINE 00:00:00 [facility] SARS-COV-2 COVID-19 2021-01-19 Completed Unive rsity of SHANNAN/J&J VACCINE 00:00:00 [facility] SARS-COV-2 COVID-19 2021-01-19 Completed Unive rsity of SHANNAN/J&J VACCINE 00:00:00 [facility] SARS-COV-2 COVID-19 2021-01-19 Completed Unive rsity of SHANNAN/J&J VACCINE 00:00:00 [facility] SARS-COV-2 COVID-19 2021-01-19 Completed Unive rsity of SHANNAN/J&J VACCINE 00:00:00 [facility] SARS-COV-2 COVID-19 2021-01-19 Completed Unive rsity of SHANNAN/J&J VACCINE 00:00:00 [facility] SARS-COV-2 COVID-19 2021-01-19 Completed Unive rsity of SHANNAN/J&J VACCINE 00:00:00 [facility] SARS-COV-2 COVID-19 2021-01-19 Completed Unive rsity of SHANNAN/J&J VACCINE 00:00:00 [facility] SARS-COV-2 COVID-19 2021-01-19 Completed Unive rsity of SHANNAN/J&J VACCINE 00:00:00 [facility] SARS-COV-2 COVID-19 2021-01-19 Completed Unive rsity of SHANNAN/J&J VACCINE 00:00:00 [facility] SARS-COV-2 COVID-19 2021-01-19 Completed Unive rsity of SHANNAN/J&J VACCINE 00:00:00 [facility] SARS-COV-2 COVID-19 2021-01-19 Completed Unive rsity of SHANNAN/J&J VACCINE 00:00:00 [facility] SARS-COV-2 COVID-19 2021-01-19 Completed Unive rsity of SHANNAN/J&J VACCINE 00:00:00 [facility] SARS-COV-2 COVID-19 2021-01-19 Completed Unive rsity of SHANNAN/J&J VACCINE 00:00:00 [facility] SARS-COV-2 COVID-19 2021-01-19 Completed Unive rsity of SHANNAN/J&J VACCINE 00:00:00 [facility] SARS-COV-2 COVID-19 2021-01-19 Completed Unive rsity of SHANNAN/J&J VACCINE 00:00:00 [facility] SARS-COV-2 COVID-19 2021-01-19 Completed Unive rsity of SHANNAN/J&J VACCINE 00:00:00 [facility] SARS-COV-2 COVID-19 2021-01-19 Completed Unive rsity of SHANNAN/J&J VACCINE 00:00:00 [facility] SARS-COV-2 COVID-19 2021-01-19 Completed Unive rsity of SHANNAN/J&J VACCINE 00:00:00 [facility] SARS-COV-2 COVID-19 2021-01-19 Completed Unive rsity of SHANNAN/J&J VACCINE 00:00:00 [facility] SARS-COV-2 COVID-19 2021-01-19 Completed Unive rsity of SHANNAN/J&J VACCINE 00:00:00 [facility] SARS-COV-2 COVID-19 2021-01-19 Completed Unive rsity of SHANNAN/J&J VACCINE 00:00:00 [facility] SARS-COV-2 COVID-19 2021-01-19 Completed Unive rsity of SHANNAN/J&J VACCINE 00:00:00 [facility] Influenza Virus 2020-08-09 Completed Universit y of Vaccine 00:00:00 [facility] Influenza Virus 2020-08-09 Completed Universit y of Vaccine 00:00:00 [facility] Influenza Virus 2020-08-09 Completed Universit y of Vaccine 00:00:00 [facility] Influenza Virus 2020-08-09 Completed Universit y of Vaccine 00:00:00 [facility] Influenza Virus 2020-08-09 Completed Universit y of Vaccine 00:00:00 [facility] Influenza Virus 2020-08-09 Completed Universit y of Vaccine 00:00:00 [facility] Influenza Virus 2020-08-09 Completed Universit y of Vaccine 00:00:00 [facility] Influenza Virus 2020-08-09 Completed Universit y of Vaccine 00:00:00 [facility] Influenza Virus 2020-08-09 Completed Universit y of Vaccine 00:00:00 [facility] Influenza Virus 2020-08-09 Completed Universit y of Vaccine 00:00:00 [facility] Influenza Virus 2020-08-09 Completed Universit y of Vaccine 00:00:00 [facility] Influenza Virus 2020-08-09 Completed Universit y of Vaccine 00:00:00 [facility] Influenza Virus 2020-08-09 Completed Universit y of Vaccine 00:00:00 [facility] Influenza Virus 2020-08-09 Completed Universit y of Vaccine 00:00:00 [facility] Influenza Virus 2020-08-09 Completed Universit y of Vaccine 00:00:00 [facility] Influenza Virus 2020-08-09 Completed Universit y of Vaccine 00:00:00 [facility] Influenza Virus 2020-08-09 Completed Universit y of Vaccine 00:00:00 [facility] Influenza Virus 2020-08-09 Completed Universit y of Vaccine 00:00:00 [facility] Influenza Virus 2020-08-09 Completed Universit y of Vaccine 00:00:00 [facility] Influenza Virus 2020-08-09 Completed Universit y of Vaccine 00:00:00 [facility] Influenza Virus 2020-08-09 Completed Universit y of Vaccine 00:00:00 [facility] Influenza Virus 2020-08-09 Completed Universit y of Vaccine 00:00:00 [facility] Influenza Virus 2020-08-09 Completed Universit y of Vaccine 00:00:00 [facility] Influenza Virus 2020-08-09 Completed Universit y of Vaccine 00:00:00 [facility] Influenza Virus 2020-08-09 Completed Universit y of Vaccine 00:00:00 [facility] Influenza Virus 2020-08-09 Completed Universit y of Vaccine 00:00:00 [facility] Influenza Virus 2020-08-09 Completed Universit y of Vaccine 00:00:00 [facility] Influenza Virus 2020-08-09 Completed Universit y of Vaccine 00:00:00 [facility] Influenza Virus 2020-08-09 Completed Universit y of Vaccine 00:00:00 [facility] Influenza Virus 2020-08-09 Completed Universit y of Vaccine 00:00:00 [facility] Influenza Virus 2020-08-09 Completed Universit y of Vaccine 00:00:00 [facility] Influenza Virus 2020-08-09 Completed Universit y of Vaccine 00:00:00 [facility] Influenza Virus 2020-08-09 Completed Universit y of Vaccine 00:00:00 [facility] Influenza Virus 2020-08-09 Completed Alejandra Se ybold - Vaccine, Unspecified 00:00:00 Exte rnal Formulation Influenza Virus 2020-08-09 Completed Alejandra Se ybold - Vaccine, Unspecified 00:00:00 Exte rnal Formulation Influenza Virus 2020-08-09 Completed Alejandra Se ybold - Vaccine, Unspecified 00:00:00 Exte rnal Formulation Influenza Virus 2017-12-15 Completed Universit y of Vaccine 00:00:00 [facility] Influenza Virus 2017-12-15 Completed Universit y of Vaccine 00:00:00 [facility] Influenza Virus 2017-12-15 Completed Universit y of Vaccine 00:00:00 [facility] Influenza Virus 2017-12-15 Completed Universit y of Vaccine 00:00:00 [facility] Influenza Virus 2017-12-15 Completed Universit y of Vaccine 00:00:00 [facility] Influenza Virus 2017-12-15 Completed Universit y of Vaccine 00:00:00 [facility] Influenza Virus 2017-12-15 Completed Universit y of Vaccine 00:00:00 [facility] Influenza Virus 2017-12-15 Completed Universit y of Vaccine 00:00:00 [facility] Influenza Virus 2017-12-15 Completed Universit y of Vaccine 00:00:00 [facility] Influenza Virus 2017-12-15 Completed Universit y of Vaccine 00:00:00 [facility] Influenza Virus 2017-12-15 Completed Universit y of Vaccine 00:00:00 [facility] Influenza Virus 2017-12-15 Completed Universit y of Vaccine 00:00:00 [facility] Influenza Virus 2017-12-15 Completed Universit y of Vaccine 00:00:00 [facility] Influenza Virus 2017-12-15 Completed Universit y of Vaccine 00:00:00 [facility] Influenza Virus 2017-12-15 Completed Universit y of Vaccine 00:00:00 [facility] Influenza Virus 2017-12-15 Completed Universit y of Vaccine 00:00:00 [facility] Influenza Virus 2017-12-15 Completed Universit y of Vaccine 00:00:00 [facility] Influenza Virus 2017-12-15 Completed Universit y of Vaccine 00:00:00 [facility] Influenza Virus 2017-12-15 Completed Universit y of Vaccine 00:00:00 [facility] Influenza Virus 2017-12-15 Completed Universit y of Vaccine 00:00:00 [facility] Influenza Virus 2017-12-15 Completed Universit y of Vaccine 00:00:00 [facility] Influenza Virus 2017-12-15 Completed Universit y of Vaccine 00:00:00 [facility] Influenza Virus 2017-12-15 Completed Universit y of Vaccine 00:00:00 [facility] Influenza Virus 2017-12-15 Completed Universit y of Vaccine 00:00:00 [facility] Influenza Virus 2017-12-15 Completed Universit y of Vaccine 00:00:00 [facility] Influenza Virus 2017-12-15 Completed Universit y of Vaccine 00:00:00 [facility] Influenza Virus 2017-12-15 Completed Universit y of Vaccine 00:00:00 [facility] Influenza Virus 2017-12-15 Completed Universit y of Vaccine 00:00:00 [facility] Influenza Virus 2017-12-15 Completed Universit y of Vaccine 00:00:00 [facility] Influenza Virus 2017-12-15 Completed Universit y of Vaccine 00:00:00 [facility] Influenza Virus 2017-12-15 Completed Universit y of Vaccine 00:00:00 [facility] Influenza Virus 2017-12-15 Completed Universit y of Vaccine 00:00:00 [facility] Influenza Virus 2017-12-15 Completed Universit y of Vaccine 00:00:00 [facility] Influenza Virus 2017-12-15 Completed Alejandra camposold - Vaccine, Unspecified 00:00:00 Exte rnal Formulation Influenza Virus 2017-12-15 Completed Alejandra camposold - Vaccine, Unspecified 00:00:00 Exte rnal Formulation Influenza Virus 2017-12-15 Completed Alejandra camposold - Vaccine, Unspecified 00:00:00 Exte rnal Formulation Pneumococcal 2017-08-06 Completed University o f Polysaccharide, 00:00:00 [place] [facility] PPSV23 (PNEUMOVAX) Branch Pneumococcal 2017-08-06 Completed University o f Polysaccharide, 00:00:00 [place] [facility] PPSV23 (PNEUMOVAX) Branch Pneumococcal 2017-08-06 Completed University o f Polysaccharide, 00:00:00 [place] [facility] PPSV23 (PNEUMOVAX) Branch Pneumococcal 2017-08-06 Completed University o f Polysaccharide, 00:00:00 [place] [facility] PPSV23 (PNEUMOVAX) Branch Pneumococcal 2017-08-06 Completed University o f Polysaccharide, 00:00:00 [place] [facility] PPSV23 (PNEUMOVAX) Branch Pneumococcal 2017-08-06 Completed University o f Polysaccharide, 00:00:00 [place] [facility] PPSV23 (PNEUMOVAX) Branch Pneumococcal 2017-08-06 Completed University o f Polysaccharide, 00:00:00 [place] [facility] PPSV23 (PNEUMOVAX) Branch Pneumococcal 2017-08-06 Completed University o f Polysaccharide, 00:00:00 [place] [facility] PPSV23 (PNEUMOVAX) Branch Pneumococcal 2017-08-06 Completed University o f Polysaccharide, 00:00:00 [place] [facility] PPSV23 (PNEUMOVAX) Branch Pneumococcal 2017-08-06 Completed University o f Polysaccharide, 00:00:00 [place] [facility] PPSV23 (PNEUMOVAX) Branch Pneumococcal 2017-08-06 Completed University o f Polysaccharide, 00:00:00 [place] [facility] PPSV23 (PNEUMOVAX) Branch Pneumococcal 2017-08-06 Completed University o f Polysaccharide, 00:00:00 [place] [facility] PPSV23 (PNEUMOVAX) Branch Pneumococcal 2017-08-06 Completed University o f Polysaccharide, 00:00:00 [place] [facility] PPSV23 (PNEUMOVAX) Branch Pneumococcal 2017-08-06 Completed University o f Polysaccharide, 00:00:00 [place] [facility] PPSV23 (PNEUMOVAX) Branch Pneumococcal 2017-08-06 Completed University o f Polysaccharide, 00:00:00 [place] [facility] PPSV23 (PNEUMOVAX) Branch Pneumococcal 2017-08-06 Completed University o f Polysaccharide, 00:00:00 [place] [facility] PPSV23 (PNEUMOVAX) Branch Pneumococcal 2017-08-06 Completed University o f Polysaccharide, 00:00:00 [place] [facility] PPSV23 (PNEUMOVAX) Branch Pneumococcal 2017-08-06 Completed University o f Polysaccharide, 00:00:00 [place] [facility] PPSV23 (PNEUMOVAX) Branch Pneumococcal 2017-08-06 Completed University o f Polysaccharide, 00:00:00 [place] [facility] PPSV23 (PNEUMOVAX) Branch Pneumococcal 2017-08-06 Completed University o f Polysaccharide, 00:00:00 [place] [facility] PPSV23 (PNEUMOVAX) Branch Pneumococcal 2017-08-06 Completed University o f Polysaccharide, 00:00:00 [place] [facility] PPSV23 (PNEUMOVAX) Branch Pneumococcal 2017-08-06 Completed University o f Polysaccharide, 00:00:00 [place] [facility] PPSV23 (PNEUMOVAX) Branch Pneumococcal 2017-08-06 Completed University o f Polysaccharide, 00:00:00 [place] [facility] PPSV23 (PNEUMOVAX) Branch Pneumococcal 2017-08-06 Completed University o f Polysaccharide, 00:00:00 [place] [facility] PPSV23 (PNEUMOVAX) Branch Pneumococcal 2017-08-06 Completed University o f Polysaccharide, 00:00:00 [place] [facility] PPSV23 (PNEUMOVAX) Branch Pneumococcal 2017-08-06 Completed University o f Polysaccharide, 00:00:00 [place] [facility] PPSV23 (PNEUMOVAX) Branch Pneumococcal 2017-08-06 Completed University o f Polysaccharide, 00:00:00 [place] [facility] PPSV23 (PNEUMOVAX) Branch Pneumococcal 2017-08-06 Completed University o f Polysaccharide, 00:00:00 [place] [facility] PPSV23 (PNEUMOVAX) Branch Pneumococcal 2017-08-06 Completed University o f Polysaccharide, 00:00:00 [place] [facility] PPSV23 (PNEUMOVAX) Branch Pneumococcal 2017-08-06 Completed University o f Polysaccharide, 00:00:00 [place] [facility] PPSV23 (PNEUMOVAX) Branch Pneumococcal 2017-08-06 Completed University o f Polysaccharide, 00:00:00 [place] [facility] PPSV23 (PNEUMOVAX) Branch Pneumococcal 2017-08-06 Completed University o f Polysaccharide, 00:00:00 [place] [facility] PPSV23 (PNEUMOVAX) Branch Pneumococcal 2017-08-06 Completed University o f Polysaccharide, 00:00:00 [place] [facility] PPSV23 (PNEUMOVAX) Branch Pneumococcal Vaccine, 2017-08-06 Completed Marky roldan Seybold - Polysaccharide 00:00:00 External Pneumococcal Vaccine, 2017-08-06 Completed Marky gibson Seybold - Polysaccharide 00:00:00 External Pneumococcal Vaccine, 2017-08-06 Completed Marky sey Seybold - Polysaccharide 00:00:00 External MMR Booster 2017-03-10 Completed University of 00:00:00 [facility] MMR Booster 2017-03-10 Completed University of 00:00:00 [facility] MMR Booster 2017-03-10 Completed University of 00:00:00 [facility] MMR Booster 2017-03-10 Completed University of 00:00:00 [facility] MMR Booster 2017-03-10 Completed University of 00:00:00 [facility] MMR Booster 2017-03-10 Completed University of 00:00:00 [facility] MMR Booster 2017-03-10 Completed University of 00:00:00 [facility] MMR Booster 2017-03-10 Completed University of 00:00:00 [facility] MMR Booster 2017-03-10 Completed University of 00:00:00 [facility] MMR Booster 2017-03-10 Completed University of 00:00:00 [facility] MMR Booster 2017-03-10 Completed University of 00:00:00 [facility] MMR Booster 2017-03-10 Completed University of 00:00:00 [facility] MMR Booster 2017-03-10 Completed University of 00:00:00 [facility] MMR Booster 2017-03-10 Completed University of 00:00:00 [facility] MMR Booster 2017-03-10 Completed University of 00:00:00 [facility] MMR Booster 2017-03-10 Completed University of 00:00:00 [facility] MMR Booster 2017-03-10 Completed University of 00:00:00 [facility] MMR Booster 2017-03-10 Completed University of 00:00:00 [facility] MMR Booster 2017-03-10 Completed University of 00:00:00 [facility] MMR Booster 2017-03-10 Completed University of 00:00:00 [facility] MMR Booster 2017-03-10 Completed University of 00:00:00 [facility] MMR Booster 2017-03-10 Completed University of 00:00:00 [facility] MMR Booster 2017-03-10 Completed University of 00:00:00 [facility] MMR Booster 2017-03-10 Completed University of 00:00:00 [facility] MMR Booster 2017-03-10 Completed University of 00:00:00 [facility] MMR Booster 2017-03-10 Completed University of 00:00:00 [facility] MMR Booster 2017-03-10 Completed University of 00:00:00 [facility] MMR Booster 2017-03-10 Completed University of 00:00:00 [facility] MMR Booster 2017-03-10 Completed University of 00:00:00 [facility] MMR Booster 2017-03-10 Completed University of 00:00:00 [facility] MMR Booster 2017-03-10 Completed University of 00:00:00 [facility] MMR Booster 2017-03-10 Completed University of 00:00:00 [facility] MMR Booster 2017-03-10 Completed University of 00:00:00 [facility] MMR- Measles, Mumps, 2017-03-10 Completed Ivy ey Seybold - Rubella 00:00:00 External MMR- Measles, Mumps, 2017-03-10 Completed Ivy ey Seybold - Rubella 00:00:00 External MMR- Measles, Mumps, 2017-03-10 Completed Ivy ey Seybold - Rubella 00:00:00 External TDAP 2015-06-12 Completed University of 00:00:00 [facility] TDAP 2015-06-12 Completed University of 00:00:00 [facility] TDAP 2015-06-12 Completed University of 00:00:00 [facility] TDAP 2015-06-12 Completed University of 00:00:00 [facility] TDAP 2015-06-12 Completed University of 00:00:00 [facility] TDAP 2015-06-12 Completed University of 00:00:00 [facility] TDAP 2015-06-12 Completed University of 00:00:00 [facility] TDAP 2015-06-12 Completed University of 00:00:00 [facility] TDAP 2015-06-12 Completed University of 00:00:00 [facility] TDAP 2015-06-12 Completed University of 00:00:00 [facility] TDAP 2015-06-12 Completed University of 00:00:00 [facility] TDAP 2015-06-12 Completed University of 00:00:00 [facility] TDAP 2015-06-12 Completed University of 00:00:00 [facility] TDAP 2015-06-12 Completed University of 00:00:00 [facility] TDAP 2015-06-12 Completed University of 00:00:00 [facility] TDAP 2015-06-12 Completed University of 00:00:00 [facility] TDAP 2015-06-12 Completed University of 00:00:00 [facility] TDAP 2015-06-12 Completed University of 00:00:00 [facility] TDAP 2015-06-12 Completed University of 00:00:00 [facility] TDAP 2015-06-12 Completed University of 00:00:00 [facility] TDAP 2015-06-12 Completed University of 00:00:00 [facility] TDAP 2015-06-12 Completed University of 00:00:00 [facility] TDAP 2015-06-12 Completed University of 00:00:00 [facility] TDAP 2015-06-12 Completed University of 00:00:00 [facility] TDAP 2015-06-12 Completed University of 00:00:00 [facility] TDAP 2015-06-12 Completed University of 00:00:00 [facility] TDAP 2015-06-12 Completed University of 00:00:00 [facility] TDAP 2015-06-12 Completed University of 00:00:00 [facility] TDAP 2015-06-12 Completed University of 00:00:00 [facility] TDAP 2015-06-12 Completed University of 00:00:00 [facility] TDAP 2015-06-12 Completed University of 00:00:00 [facility] TDAP 2015-06-12 Completed University of 00:00:00 [facility] TDAP 2015-06-12 Completed University of 00:00:00 [facility] Tdap- (Boostrix, 2015-06-12 Completed Alejandra gordon - Adacel) 00:00:00 External Tdap- (Boostrix, 2015-06-12 Completed Alejandra gordon - Adacel) 00:00:00 External Tdap- (Boostrix, 2015-06-12 Completed Alejandra gordon - Adacel) 00:00:00 External Vital Signs Vital Name Observation Time Observation Value Comments Source Systolic blood 2023-04-22 18:34:00 139 mm[Hg] Alejandra Piper - pressure External Diastolic blood 2023-04-22 18:34:00 80 mm[Hg] Daphney Piper - pressure External Heart rate 2023-04-22 18:34:00 69 /min Alejandra gordon - External Body temperature 2023-04-22 18:34:00 36.5 Sandhya Ivy shaikh Seniurka - External Respiratory rate 2023-04-22 18:34:00 16 /min Ivy Piper - External Body height 2023-04-22 18:34:00 160 cm Alejandra gordon - External Body weight 2023-04-22 18:34:00 90.357 kg Alejandra Lind eybold - External BMI 2023-04-22 18:34:00 35.29 kg/m2 Alejandra Lind eybold - External Oxygen saturation in 2023-04-22 18:34:00 97 /min Alejandra Piper - Arterial blood by External Pulse oximetry Systolic blood 2023-01-08 15:37:00 130 mm[Hg] Alejandra Seybold - pressure External Diastolic blood 2023-01-08 15:37:00 85 mm[Hg] Daphney y Seybold - pressure External Heart rate 2023-01-08 15:37:00 74 /min Alejandra Lind eybold - External Body temperature 2023-01-08 15:37:00 36.06 Sandhya Ivy shaikh Seybold - External Respiratory rate 2023-01-08 15:37:00 18 /min Ivy shaikh Seybold - External Body height 2023-01-08 15:37:00 160 cm Alejandra Lind eybold - External Body weight 2023-01-08 15:37:00 90.538 kg Alejandra Lind eybold - External BMI 2023-01-08 15:37:00 35.36 kg/m2 Alejandra Lind eybold - External Oxygen saturation in 2023-01-08 15:37:00 99 /min Alejandra Piper - Arterial blood by External Pulse oximetry Systolic blood 2022-07-31 15:16:00 113 mm[Hg] Univer sity of [facility] Diastolic blood 2022-07-31 15:16:00 71 mm[Hg] Unive rsity of [facility] Heart rate 2022-07-31 15:15:00 87 /min Universi ty [facility] [place] Body temperature 2022-07-31 15:15:00 36.94 Sandhya Univ ersity of [facility] Body height 2022-07-31 15:15:00 160 cm Universi ty [facility] Body weight 2022-07-31 15:15:00 88.406 kg Universi ty [facility] [place] BMI 2022-07-31 15:15:00 34.52 kg/m2 [facility] Oxygen saturation in 2022-07-31 15:15:00 98 /min University Arterial blood by [facility] Pulse oximetry Branch Systolic blood 2022-07-11 14:26:00 115 mm[Hg] Univer sity of pressure [facility] Diastolic blood 2022-07-11 14:26:00 72 mm[Hg] Unive rsity of pressure [facility] Heart rate 2022-07-11 14:26:00 68 /min [facility] [place] [facility] Body temperature 2022-07-11 14:26:00 37.22 Sandhya Univ ersity of [place] [facility] Body height 2022-07-11 14:26:00 160 cm [facility] [place] [facility] Body weight 2022-07-11 14:26:00 85.276 kg [facility]i [facility] [place] [facility] BMI 2022-07-11 14:26:00 33.30 kg/m2 [facility] [place] [facility] Oxygen saturation in 2022-07-11 14:26:00 99 /min University of Arterial blood by [place] [facility] Pulse oximetry Branch Systolic blood 2022-07-04 14:07:00 127 mm[Hg] Univer sity of pressure [place] [facility] Diastolic blood 2022-07-04 14:07:00 79 mm[Hg] Unive rsity of pressure [facility] Heart rate 2022-07-04 14:07:00 78 /min [facility]i [facility] [place] [facility] Body temperature 2022-07-04 14:07:00 37.39 Sandhya Univ ersity [facility] [place] [facility] Respiratory rate 2022-07-04 14:07:00 18 /min Univ ersity [facility] [place] [facility] Body height 2022-07-04 14:07:00 160 cm [facility] Body weight 2022-07-04 14:07:00 85.775 kg [facility] [place] [facility] BMI 2022-07-04 14:07:00 33.50 kg/m2 [facility] [place] [facility] Oxygen saturation in 2022-07-04 14:07:00 100 /min University of Arterial blood by [place] [facility] Pulse oximetry Branch Systolic blood 2022-06-30 21:40:00 143 mm[Hg] Univer sity of pressure [place] [facility] Diastolic blood 2022-06-30 21:40:00 87 mm[Hg] Unive rsity of pressure [facility] Heart rate 2022-06-30 21:39:00 68 /min [facility] [place] [facility] Body temperature 2022-06-30 21:39:00 37.22 Sandhya [facility] ersity [facility] Respiratory rate 2022-06-30 21:39:00 12 /min [facility] ersity of [facility] Body height 2022-06-30 21:39:00 160 cm [facility]i [facility] [place] [facility] [place] Body weight 2022-06-30 21:39:00 86.501 kg [facility] [place] [facility] [place] BMI 2022-06-30 21:39:00 33.78 kg/m2 Universi ty of [facility] Oxygen saturation in 2022-06-30 21:39:00 99 /min University of Arterial blood by [facility] Pulse oximetry Branch Systolic blood 2022-06-16 18:10:00 125 mm[Hg] Univer sity of pressure [facility] Diastolic blood 2022-06-16 18:10:00 81 mm[facility]Hg] [facility] Heart rate 2022-06-16 18:10:00 73 /min Universi ty of [facility] Body temperature 2022-06-16 18:10:00 37.5 Sandhya [facility] 2022-06-16 18:10:00 18 /min [facility] ersity [facility] Body height 2022-06-16 18:10:00 160 cm [facility] [place] [facility] [place] Body weight 2022-06-16 18:10:00 84.233 kg [facility] [place] [facility] [place] BMI 2022-06-16 18:10:00 32.90 kg/m2 Universi ty [facility] [place] Oxygen saturation in 2022-06-16 18:10:00 99 /min University of Arterial blood by [facility] Pulse oximetry Branch Procedures Procedure Date / Time Performed Performing Clinician [facility] e CONSENT/REFUSAL FOR 2022-07-11 14:24:31 [facility] TREATMENT XR CHEST 2 VW 2022-06-30 22:03:00 Maricel Gallagher [facility] POCT SARS-COV-2 2022-06-20 14:52:00 Ajay Padilla [facility] ANTIGEN (BINAX NOW) Medical Bran ch POCT SARS-COV-2 2022-06-16 18:12:00 Song, Maricel [facility] [place] ANTIGEN (BINAX NOW) Medical Bran ch ASSIGNMENT OF BENEFITS 2022-05-20 15:44:33 Doctor Unassigned, No [facility] Encounters Start End Encounter Admission Attending Care Care Encounter Source Date/Time Date/Time Type Type Clinicians Facility Department ID 2021-08-12 Outpatient DADA RIOS [facility] GIE [id number] Univers 02:31:07 ity [facility] 2021-08-10 Emergency [facility] [id number] Univers 10:57:44 y [facility] 2023-04-22 2023-04-22 Outpatient LAB47 ALEJANDRA KEARNEY [id number] Alejandra 14:00:00 14:00:00 Seybol d 2023-04-22 2023-04-22 Outpatient ALEJANDRA MORAN [id number] Alejandra 13:30:00 13:30:00 FELI Seybol romina 2023-04-19 2023-04-19 Outpatient ALEJANDRA MORAN [id number] Alejandra 00:00:00 00:00:00 FELI Seybol romina 2023-04-10 2023-04-10 Outpatient FRANKLYN KEARNEY [id number] Alejandra 00:00:00 00:00:00 MD Rajiv MEDINAybol romina 2023-03-09 2023-03-09 Outpatient ALEJANDRA MORAN [id number] Alejandra 00:00:00 00:00:00 FELI Seybol romina 2023-03-06 2023-03-06 Outpatient YURY Lau [id number] Alejandra 11:15:00 11:15:00 Seybol d 2023-03-06 2023-03-06 Outpatient ALEJANDRA EHR [id number] Alejandra 11:00:00 11:00:00 JESSICA Reynosool romina 2023-02-27 2023-02-27 Outpatient FRANKLYN KEARNEY [id number] Alejandra 00:00:00 00:00:00 MD Rajiv MEDINAybol romina 2023-02-22 2023-02-22 Outpatient ALEJANDRA MORAN [id number] Alejandra 00:00:00 00:00:00 FELI Seybol d 2023-01-28 2023-01-28 Outpatient ALEJANDRA MORAN [id number] Alejandra 00:00:00 00:00:00 FELI Seybol d 2023-01-09 2023-01-09 Outpatient ALEJANDRA MORAN [id number] Alejandra 00:00:00 00:00:00 FELI Seybol d 2023-01-08 2023-01-08 Outpatient LAB47 ALEJANDRA KEARNEY [id number] Alejandra 11:30:00 11:30:00 Seybol d 2023-01-08 2023-01-08 Outpatient ALEJANDRA MORAN [id number] Alejandra 10:45:00 10:45:00 FELI Seybol d 2022-11-18 2022-11-18 Latrice Navarrete [facility] [id number] Univers 00:00:00 00:00:00 [facility] [id number] it y of [place] [id number] Loc as GABY?BLEA [id number] [address] MEDICAL OFFICE BUILDING 2022-11-17 2022-11-17 Outpatient INJ, ALEJANDRA KEARNEY [id number] Alejandra 08:45:00 08:45:00 EULALIA Reynosoo delbert 2022-11-17 2022-11-17 Outpatient ALEJANDRA COOK [id number] Alejandra 00:00:00 00:00:00 DEMARCUS Seybol d 2022-11-17 2022-11-17 Outpatient ALEJANDRA COOK [id number] Alejandra 00:00:00 00:00:00 DEMARCUS Seybol d 2022-11-14 2022-11-14 Outpatient LAB47 ALEJANDRA KEARNEY [id number] Alejandra 11:30:00 11:30:00 Seybol d 2022-11-14 2022-11-14 Outpatient INJALEJANDRA [id number] Alejandra 10:45:00 10:45:00 EULALIA Reynosoo delbert 2022-11-12 2022-11-12 Outpatient ALEJANDRA COOK [id number] Alejandra 00:00:00 00:00:00 DEMARCUS Seybol d 2022-10-21 2022-10-21 [facility] [id number] Univers 00:00:00 00:00:00 [facility] [id number] it y of [place] 4.2.7.2.686 Loc as GABY?BLEA [phone] [address] OFFICE [facility] 2022-10-09 2022-10-09 Patient Doctor [facility] 1.2.840.114 [id number] Univers 00:00:00 00:00:00 Secure Msg Unassigned, HEALTH 350.1.13.10 ity of [place] 4.2.7.2.686 Loc as GABY?BLEA [phone] [address] OFFICE [facility] 2022-10-05 2022-10-05 Refill Doctor [facility] 1.2.840.114 [id number] Univers 00:00:00 00:00:00 Unassigned, HEALTH 350.1.13.10 ity of [place] 4.2.7.2.686 Loc as GABY?BLEA [phone] [address] MEDICAL OFFICE [facility] 2022-08-20 2022-08-20 Refill [facility] 1.2.840.114 [id number] Univers 00:00:00 00:00:00 Jake HEALTH 350.1.13.10 it y of [place] 4.2.7.2.686 Loc as GABY?BLEA [phone] [address] OFFICE [facility] 2022-07-31 2022-07-31 Office [facility] 1.2.840.114 [id number] Univers 10:15:00 10:30:00 Visit [facility] 350.1.13.10 it y of [place] 4.2.7.2.686 Loc as GABY?BLEA [phone] [address] OFFICE [facility] 2022-07-31 2022-07-31 Outpatient R LANDON [facility] [id number] Univers 10:15:00 10:15:00 JAKE carl [facility] 2022-07-11 2022-07-11 Outpatient [facility] [id number] Univers 09:47:28 23:59:00 LEEROY ity of [facility] 2022-07-11 2022-07-11 Office [facility] 1.2.840.114 [id number] Univers 09:20:00 12:22:52 Visit [facility] 350.1.13.[address] [facility] 4.2.7.2.686 Loc as GABY?BLEA [phone] [address] MEDICAL OFFICE BUILDING 2022-07-11 2022-07-11 Orders Doctor MOHAMUD 1.2.840.114 [id number] Univers 00:00:00 00:00:00 Only Unassigned, REYNA 350.1.13.10 ity of [place] [facility] 4.2.7.2.686 Loc as [phone] [address] 2022-07-11 2022-07-11 Letter [facility] 1.2.840.114 [id number] Univers 00:00:00 00:00:00 (Out) [facility] 350.1.13.10 ity of [place] 4.2.7.2.686 Loc as GABY?BLEA [phone] [address] OFFICE [facility] 2022-07-11 2022-07-11 Patient Yolandawilfredo [facility] 1.2.840.114 [id number] Univers 00:00:00 00:00:00 Secure Msg [facility] 350.1.13.[address] [facility] 4.2.7.2.686 Loc as GABY?BLEA [phone] [address] MEDICAL OFFICE [facility] 2022-07-04 2022-07-04 Urgent [facility] 1.2.840.114 [id number] Univers 09:20:00 09:40:00 Care [facility] HEALTH 350.1.13.10 i ty of [place] 4.2.7.2.686 Loc as GABY?BLEA [phone] [facility] [address] MEDICAL OFFICE BUILDING 2022-07-04 2022-07-04 Outpatient R JADON [facility] [id number] Univers 09:20:00 09:20:00 MERCEDES itwilfredo o f [facility] 2022-06-30 2022-06-30 Outpatient R ELLIOTT [facility] [id number] Univers 16:50:26 23:59:00 MARICEL ity of [facility] 2022-06-30 2022-06-30 [facility] 1.2.840.114 [id number] Univers 16:50:26 23:59:00 Encounter Maricel HEALTH 350.1.13.10 ity of [place] 4.2.7.2.686 Loc as GABY?BLEA [phone] Ak lasha NICHOLE [address] [facility] 2022-06-30 2022-06-30 [facility] Elliott [facility] 1.2.840.114 [id number] Univers 16:40:00 17:00:00 Care Maricel HEALTH 350.1.13.10 it y of [place] 4.2.7.2.686 Loc as GABY?BLEA [phone] Ak lasha NICHOLE 370 [facility] OFFICE [facility] 2022-06-23 2022-06-23 Refill Doctor [facility] 1.2.840.114 [id number] Univers 00:00:00 00:00:00 Unassigned, HEALTH 350.1.13.10 ity of [place] 4.2.7.2.686 Loc as GABY?BLEA [phone] Ak lasha NICHOLE [address] [facility] 2022-06-20 2022-06-20 Control Systems Specialist Only, Ang Db Test [facility] 1.2.8 40.114 [id number] Univers 10:00:00 10:15:00 Visit Dk [facility] 350.1.13.[address] [facility] 4.2.7.2.686 Loc as GABY?BLEA [phone] Ak lasha NICHOLE [address] [facility] 2022-06-20 2022-06-20 Outpatient R DK [facility] [id number] Univers 10:00:00 10:00:00 DAWN ity [facility] 2022-06-16 2022-06-16 [facility] 1.2.840.114 [id number] Univers 13:00:00 13:20:00 Care [facility] 350.1.13.10 it y of [place] 4.2.7.2.686 Loc as GABY?BLEA [phone] [facility] [address] MEDICAL OFFICE [facility] 2022-06-16 2022-06-16 Outpatient R ELLIOTT [facility] [id number] Univers 13:00:00 13:00:00 MARICEL ity [facility] 2022-06-11 2022-06-11 MOHAMUD Hernandez 1.2.840.114 [id number] Univers 00:00:00 00:00:00 (Out) Franny REYNA 350.1.13.10 it y of [facility] 4.2.7.2.686 Loc as [phone] [address] 2022-06-10 2022-06-10 Outpatient [facility] [id number] Univers 15:45:00 16:04:44 [facility] 2022-06-10 2022-06-10 Laboratory Only, Ang Db Test [facility] 1.2.8 40.114 [id number] Univers 15:45:00 16:00:00 Only Dawn Root [facility] 350.1.13.10 ity of [place] 4.2.7.2.686 Loc as GABY?BLEA [phone] [address] OFFICE [facility] 2022-05-20 2022-05-20 Laboratory Only, Adc Pob2 Test [facility] 1.2 .840.114 [id number] Univers 15:15:00 15:30:00 Only Jake Navarrete 350.1.13.10 ity [facility] 4.2.7.2.[place] PROFESSIO [phone] [facility] [address] [facility] 2022-05-20 2022-05-20 Outpatient R LANDON [facility] [id number] Univers 15:15:00 11:00:29 JAKE carl [facility] 2022-05-20 2022-05-20 Mike MALLORY 1.2.840.114 [id number] Univers 00:00:00 00:00:00 Only UnassREYNA hoff 350.1.13.10 ity of [place] [facility] 4.2.7.2.686 Loc as [phone] [address] 2022-04-14 2022-04-14 Latrice [facility] 1.2.840.114 [id number] Univers 00:00:00 00:00:00 [place] HEALTH 350.1.13.10 it y of [place] 4.2.7.2.686 Loc as GABY?BLEA [phone] [address] MEDICAL OFFICE [facility] 2022-02-28 2022-02-28 [facility]te[facility] 1.2.840.114 [id number] Univers 00:00:00 00:00:00 Jake HEALTH 350.1.13.10 it y of [place] 4.2.7.2.686 Loc as GABY?BLEA [phone] [address] OFFICE [facility] 2022-02-28 2022-02-28 Thad Nav[facility]teG[facility] 1.2.470.135 [id number] Univers 00:00:00 00:00:00 [facility] 350.1.13.10 it y of [place] 4.2.7.2.686 Loc as GABY?BLEA [phone] [address] 2022-02-28 2022-02-28 [facility] Hospitalcarlotn [facility]teG[facility] 1.2.840.114 [id number] Univers 00:00:00 00:00:00 [facility] 350.1.13.10 it y of [place] 4.2.7.2.686 Loc as GABY?BLEA [phone] [address] 2022-01-16 2022-01-16 Outpatient R LANDON [facility] [id number] Univers 15:00:00 15:00:00 JAKE itwilfredo of [facility] 2022-01-02 2022-01-02 [facility]teG[facility] 1.2.840.114 [id number] Univers 00:00:00 00:00:00 [place] HEALTH 350.1.13.10 it y of [place] 4.2.7.2.686 Loc as GAYB?BLEA [phone] [place] [address] [facility] OFFICE BUILDING 2021-11-28 2021-11-28 Latrice Navarrete, [facility] 1.2.840.114 [id number] Univers 00:00:00 00:00:00 Jake HEALTH 350.1.13.[address] [facility] [facility] 4.2.7.2.686 Loc as GABY?BLEA [phone] Ak dical KNEY 044 [facility] OFFICE [facility] 2021-11-24 2021-11-24 Latrice Hesham, [facility] 1.2.840.114 [id number] Univers 00:00:00 00:00:00 Wondiful A HEALTH 350.1.13.10 ity of [place] 4.2.7.2.686 Loc as PROFESSIO [phone] Ak dicla NAL [address] OFFICE [facility] ONE 2021-11-14 2021-11-14 Outpatient R RAGHAVENDRA [facility] [id number] Univers 10:30:00 10:30:00 AJAY carl [facility] 2021-11-14 2021-11-14 Control Systems Specialist Only, Ang Db Test [facility] 1.2.8 40.114 [id number] Univers 10:30:00 10:30:00 Visit Unknown, Attending HEALTH 350.1.13.10 ity of Ajay Padilla 4.2.7.2.686 [place] GABY?BLEA [phone] [facility] DIONISIO [address] [facility] 2021-11-11 2021-11-11 Laboratory Only, Adc Pob2 Test [facility] 1.2 .840.114 [id number] Univers 09:30:00 10:06:54 Only Valentin Tan 350.1.13 .10 ity of [place] 4.2.7.2.686 [place] PROFESS[place] [phone] Ak dicla NAL 225 [facility] 2021-11-11 2021-11-11 Outpatient R DOMINICK [facility] [id number] Univers 09:30:00 10:06:54 VALENTIN carl [facility] 2021-11-11 2021-11-11 Outpatient Adrianne TAN [facility] [id number] Univers 09:30:00 09:30:00 VALENTIN carl [facility] 2021-11-01 2021-11-01 Refcarlton GerdaGALLUP INDIAN [facility]ICAL [facility] 1.2.840.114 [id number] Univers 00:00:00 00:00:00 [place] HEALTH 350.1.13.10 it y of [place] 4.2.7.2.686 Loc as PROFESSIO [phone] [address] OFFICE [facility] ONE 2021-10-16 2021-10-16 Latrice HeshamG[facility]UP [facility] 1.2.840.114 [id number] Univers 00:00:00 00:00:00 Wondiful A HEALTH 350.1.13.10 ity of [place] 4.2.7.2.686 Loc as PROFESSIO [phone] [address] ONE 2021-09-27 2021-09-27 Control Systems Specialist Lab, [facility] 1.2.840.1 14 [id number] Univers 07:30:00 07:45:00 Visit Navarrete Jake [facility] 350.1.13.10 ity of [place] 4.2.7.2.686 Loc as GABY?BLEA [phone] [facility] [address] [facility] OFFICE [facility] 2021-09-27 2021-09-27 Outpatient Adrianne NAVARRETE [facility] [id number] Univers 07:30:00 07:30:00 JAKE carl [facility] 2021-09-13 2021-09-13 Outpatient Adrianne NAVARRETE [facility] [id number] Univers 08:00:00 08:00:00 JAKE carl [facility] 2021-09-04 2021-09-04 Office [facility] 1.2.840.114 [id number] Univers 14:52:46 15:22:46 Visit Jake [facility] 350.1.13.10 it y of [place] 4.2.7.2.686 Loc as GABY?BLEA [phone] [address] OFFICE [facility] 2021-09-04 2021-09-04 Outpatient Adrianne NAVARRETE [facility] [id number] Univers 15:00:00 15:00:00 JAKE carl [facility] 2021-08-25 2021-08-25 Latrice DahlG[facility] 1.2.840.114 [id number] Univers 00:00:00 00:00:00 Wondiful A HEALTH 350.1.13.10 ity of [place] 4.2.7.2.686 Loc as PROFESSIO [phone] Ak lasha OLGA LIDIA [address] OFFICE BUILDING ONE 2021-08-09 2021-08-09 Outpatient R [facility] [id number] Univers 10:20:00 10:35:32 MARICEL ity [facility] 2021-08-09 2021-08-09 Urgent Mercedes David [facility] 1.2.840. 114 [id number] Univers 10:13:25 10:35:32 Danielito Gallagher Maricel HEALTH 350.1.13.10 ity of [place] 4.2.7.2.686 Loc as GABY?BLEA [phone] Ak lasha DOUGLASSCOLLEEN [address] MEDICAL OFFICE BUILDING 2021-08-09 2021-08-09 Telephone Rachel Love 1.2.840.114 [id number] Univers 00:00:00 00:00:00 REYNA 350.1.13.10 it y of [facility] 4.2.7.2.686 Loc as [phone] [address] 2021-06-07 2021-06-07 Office [facility] 1.2.840.114 [id number] Univers 09:36:12 10:06:12 Visit isradhika, SPECIALTY 350.1.13.10 ity of [facility] 4.2.7.2.[place] CENTER AT [phone] Ak lasha VALDEZWilfredo 072 [facility] 2021-06-07 2021-06-07 Outpatient R [facility] [id number] Univers 10:00:00 10:00:00 ISE, ity of [facility] 2021-06-07 2021-06-07 Orders Doctor MALLORY 1.2.840.114 [id number] Univers 00:00:00 00:00:00 Only Unassigned, REYNA 350.1.13.10 ity of [place] [facility] 4.2.7.2.686 Loc as [phone] [address] 2021-05-10 2021-05-10 Outpatient R JASON, HEBERT [facility] [id number] Univers 08:00:00 08:00:00 JASONHEBERT Garrido ity of [facility] 2021-05-03 2021-05-03 Latrice [facility] 1.2.840.114 [id number] Univers 00:00:00 00:00:00 [place] [facility] 350.1.13.10 it y of [place] 4.2.7.2.686 Loc as Professio [phone] Ak dical nal [address] Office [facility] One 2021-04-22 2021-04-22 [facility]te[facility] 1.2.840.114 [id number] Univers 00:00:00 00:00:00 [place] [facility] 350.1.13.10 it y of [place] 4.2.7.2.686 Loc as Professio [phone] Ak dical nal 044 [facility] One 2021-04-12 2021-04-12 Hospital [facility] 1.2.840.114 [id number] Univers 08:43:00 11:44:00 Encounter [facility] 350.1.13.10 ity of [place]2.7.2.686 [place] [facility] [phone] [address] ([facility]) 2021-04-12 2021-04-12 Surgery [facility] 1.2.840.114 [id number] Univers 10:10:00 10:55:00 Vamsi SPECIALTY 350.1.13.10 ity of CARE 4.2.7.2.686 [place] [facility] AT [phone] Ak dical VICTORY 020 [facility] 2021-04-12 2021-04-12 Orders Doctor MOHAMUD 1.2.840.114 [id number] Univers 00:00:00 00:00:00 Only Unassigned, REYNA 350.1.13.10 ity of [place] [facility] 4.2.7.2.686 Loc as [phone] [address] 2021-03-13 2021-03-13 Outpatient R LANDON [facility] [id number] Univers 15:15:00 15:15:00 JAKE carl [facility] 2021-03-13 2021-03-13 Refcarlton Nav[facility]teG[facility] 1.2.840.114 [id number] Univers 00:00:00 00:00:00 [facility] 350.1.13.10 it y of [place] 4.2.7.2.686 Loc as Professio [phone] Ak dical nal 044 [facility] One 2021-03-12 2021-03-12 Telephone [facility] 1.2.614.450 [id number] Univers 00:00:00 00:00:00 Jake [facility] 350.1.13.10 it y of [place] 4.2.7.2.686 Loc as Professio [phone] Ak dical nal [address] [place] [address] 2021-03-06 2021-03-06 Refill [facility]teG[facility] 1.2.840.114 [id number] Univers 00:00:00 00:00:00 Jake [facility] 350.1.13.10 it y of [place] 4.2.7.2.686 Loc as Professio [phone] [facility] nal [address] [place] [address] 2021-03-05 2021-03-05 Outpatient R JADON [facility] [id number] Univers 13:30:00 13:30:00 MERCEDES dimas [facility] 2021-02-28 2021-02-28 Office [facility] 1.2.840.114 [id number] Univers 09:55:04 10:25:04 Visit [facility] 350.1.13.10 it y of [place] 4.2.7.2.686 Loc as Professio [phone] Ak dicla nal [address] [place] [address] 2021-02-28 2021-02-28 Outpatient R ANGELIA [facility] [id number] Univers 10:00:00 10:00:00 GALLO carl [facility] 2021-02-27 2021-02-27 Tele[facility] 1.2.441.829 [id number] Univers 00:00:00 00:00:00 Jake [facility] 350.1.13.10 it y of [place] 4.2.7.2.686 Loc as Professio [phone] Ak dical nal 044 [facility] One 2021-02-26 2021-02-26 Outpatient R ANGELIA, [facility] [id number] Univers 10:40:00 10:40:00 GALLO ity [facility] 2021-02-26 2021-02-26 Outpatient DOMINICK, [facility] [id number] Univers 10:10:00 10:10:00 VALENTIN ity [facility] 2021-02-26 2021-02-26 Laboratory Lab, Adc Fam Stephen I [facility] 1.2. 840.114 [id number] Univers 08:30:36 08:50:36 Only Angelia, [facility] 350.1.13.10 ity of [place] 4.2.7.2.686 Loc as Professio [phone] Ak dical nal 044 [facility] One 2021-02-13 2021-02-13 Orders Doctor MOHAMUD 1.2.840.114 [id number] Univers 00:00:00 00:00:00 Only Unassigned, REYNA 350.1.13.10 ity of [place] [facility] 4.2.7.2.686 Loc as [phone] [address] 2021-01-16 2021-01-16 Telephone [facility] 1.2.840.114 [id number] Univers 00:00:00 00:00:00 ise, SPECIALTY 350.1.13.10 ity of [facility] 4.2.7.2.686 [place] CENTER AT [phone] Ak lasha MOMIN 072 [facility] 2021-01-11 2021-01-11 Control Systems Specialist Stephen, Adc Lab Main [facility] 1.2.8 40.114 [id number] Univers 07:53:31 08:08:31 Visit CortezRenee Salcidoton 350.1 .13.10 ity of [place] 4.2.7.2.686 [place] Professio [phone] Me dical nal [address] 2021-01-11 2021-01-11 Outpatient R [facility] [id number] Univers 07:45:00 07:45:00 ISmeseret Garrido of [facility] 2021-01-07 2021-01-07 Control Systems Specialist Lab, Adc Fam Pob I [facility] 1.2. 840.114 [id number] Univers 06:54:49 08:33:02 Visit Jake Navarrete [facility] 350.1.13.10 ity of [place] 4.2.7.2.686 Loc as Professio [phone] Ak dical nal [address] One 2021-01-07 2021-01-07 Outpatient R LANDON [facility] [id number] Univers 08:20:00 08:20:00 [facility] 2020-12-31 2020-12-31 Outpatient R LANDON [facility] [id number] Univers 08:20:00 08:20:00 [facility] 2020-12-28 2020-12-28 Outpatient R [facility] [id number] Univers 08:00:00 08:00:00 [facility] 2020-12-22 2020-12-22 Patient Dominick [facility] 1.2.840.114 [id number] Univers 00:00:00 00:00:00 Outreach Valentin PRIMARY 350.1.13.10 i ty of [facility] 4.2.7.2.686 [place] YOJANAILLION [phone] Ak dical [address] 2020-12-21 2020-12-21 Office [facility] 1.2.840.114 [id number] Univers 09:00:51 10:35:49 Visit tina, SPECIALTY 350.1.13.10 ity of [facility] 4.2.7.2.686 [place] CENTER AT [phone] Ak dical VICTORY 072 [facility] 2020-12-21 2020-12-21 Outpatient R [facility] [id number] Univers 09:00:00 09:00:00 meseret TOLLIVER of [facility] 2020-12-21 2020-12-21 Latrice [facility] 1.2.840.114 [id number] Univers 00:00:00 00:00:00 Wondiful A Health 350.1.13.10 ity of [place] 4.2.7.2.686 Loc as Professio [phone] [address] Office [facility] One 2020-12-21 2020-12-21 Orders Doctor MOHAMUD 1.2.840.114 [id number] Univers 00:00:00 00:00:00 Only Unassigned, REYNA 350.1.13.10 [facility] 4.2.7.2.686 Loc as [phone] [address] 2020-11-22 2020-11-22 Outpatient R LANDON [facility] [id number] Univers 15:15:00 15:15:00 JAKE itwilfredo [facility] 2020-11-16 2020-11-16 Latrice [facility] 1.2.840.114 [id number] Univers 00:00:00 00:00:00 [facility] 350.1.13.10 it y of [place] 4.2.7.2.686 Loc as Professio [phone] [address] One 2020-11-11 2020-11-11 Latrice [facility] 1.2.840.114 [id number] Univers 00:00:00 00:00:00 Wondiful A Health 350.1.13.10 ity of [place] 4.2.7.2.686 Loc as Professio [phone] [address] Office [facility] One 2020-10-26 2020-10-26 Outpatient R NANNETTE [facility] [id number] Univers 11:00:00 11:00:00 meseret TOLLIVER of [facility] 2020-10-18 2020-10-18 Latrice [facility] 1.2.840.114 [id number] Univers 00:00:00 00:00:00 Wondiful A Health 350.1.13.10 ity of [place] 4.2.7.2.686 Loc as Professio [phone] Ak dic[address] Office [facility] One 2020-10-17 2020-10-17 Telephone [facility] 1.2.325.099 [id number] Univers 00:00:00 00:00:00 [facility] 350.1.13.10 it y of [place] 4.2.7.2.686 Loc as Professio [phone] [address] Office [facility] One 2020-10-09 2020-10-09 Telephone [facility] 1.2.835.581 [id number] Univers 00:00:00 00:00:00 [facility] 350.1.13.10 it y of [place] 4.2.7.2.686 Loc as Professio [phone] [address] One 2020-09-27 2020-09-27 Outpatient R GOMEZ LATHAM [facility] [id number] Univers 19:30:00 19:30:00 GOMEZ LATHAM [facility] 2020-09-27 2020-09-27 Control Systems Specialist 1, [facility] Sleep Lab Bed [facility] 1. 2.840.114 [id number] Univers 14:47:07 17:17:07 Visit Gomez [place] 350.1.13. 10 ity of [place] 4.2.7.2.686 [place] [phone] [facility] [address] 2020-09-27 2020-09-27 Orders Doctor MOHAMUD 1.2.840.114 [id number] Univers 00:00:00 00:00:00 Only Unassigned, REYNA 350.1.13.10 ity of [place] [facility] 4.2.7.2.686 Loc as [phone] [place] [address] [address] 2020-09-25 2020-09-25 Outpatient R MARK [facility] [id number] Univers 14:30:00 14:30:00 DERICK carl [facility] 2020-09-24 2020-09-24 [facility] [id number] Univers 15:15:00 15:15:00 JAKE carl [facility] 2020-09-24 2020-09-24 [facility] 1.2.840.114 [id number] Univers 14:57:27 15:12:27 Visit [facility] 350.1.13.10 it y of [place] 4.2.7.2.686 Loc as Professio [phone] [address] Office [address] [facility] 2020-09-23 2020-09-23 Emergency [facility] [id number] Univers 12:45:00 15:23:00 Violette R [place] 350.1.13.10 i ty [place] 4[place]2.7.2.[place] [phone] [facility] [address] [place] 2020-09-23 2020-09-23 [facility] [id number] Univers 12:40:00 12:40:00 DAWN ity [facility] 2020-09-23 2020-09-23 Urgent Provider, [facility] 1.2.840.114 [id number] Univers 12:13:16 12:33:16 Care Dk [facility] 350.1.13.10 ity of [place] 4.2.7.2.686 Loc as Professio [phone] [address] Office [address] [facility] 2020-09-23 2020-09-23 Orders Doctor MOHAMUD 1.2.840.114 [id number] Univers 00:00:00 00:00:00 Only Unassigned, REYNA 350.1.13.10 ity of [place] [facility] 4.2.7.2.686 Loc as [phone] [facility] [address] [place] 2020-09-18 2020-09-18 [facility] 1.2.840.114 [id number] Univers 00:00:00 00:00:00 Wondiful [facility] 350.1.13.10 ity of [place] 4.2.7.2.686 Loc as Professio [phone] [address] Office [address] [facility] 2020-09-05 2020-09-05 [facility] 1.2.840.114 [id number] Univers 17:10:00 23:59:00 Encounter Amaury Matta 350.1.13.10 ity of [place] 4.2.7.2.686 [facility] [phone] [facility] [address] [place] 2020-09-05 2020-09-05 Outpatient R [facility] [id number] Univers 00:00:00 00:00:00 AMAURY ity of [facility] 2020-09-03 2020-09-03 Telephone [facility] [id number] Univers 00:00:00 00:00:00 [facility] 350.1.13.10 it y of [place] 4.2.7.2.686 Loc as Professio [phone] Ak lasha chang [address] [place] Office [facility] One 2020-08-31 2020-08-31 Control Systems Specialist [facility] 1.2.840.114 [id number] Univers 16:11:46 16:26:46 Visit Amaury Callaway 350.1.13.10 ity of CARE 4.2.7.2.686 [facility] CENTER AT [phone] Ak lasha MOMIN 353 [facility] 2020-08-31 2020-08-31 Office [facility] [id number] Univers 15:33:08 16:14:07 Visit Amaury [place] 350.1.13.10 ity of CARE 4.2.7.2.686 [facility] CENTER AT [phone] Ak lasha MOMIN 188 [facility] 2020-08-31 2020-08-31 Outpatient R CESIA [facility] [id number] Univers 15:30:00 15:30:00 AMAURY ity [facility] 2020-08-31 2020-08-31 Orders Doctor MOHAMUD [id number] [id number] Univers 00:00:00 00:00:00 Only Unassigned, REYNA 350.1.13.10 ity of [place] [facility] 4.2.7.2.686 Loc as [phone] [facility] [address] [place] 2020-08-27 2020-08-27 Telephone [facility] [id number] Univers 00:00:00 00:00:00 [facility] [id number] it y of [place] 4.2.7.2.686 Loc as Professio [phone] Ak dical nal [address] One 2020-08-21 2020-08-21 Outpatient R HESHAM [facility] [id number] Univers 15:40:00 15:40:00 DION itwilfredo o f [facility] 2020-08-21 2020-08-21 Control Systems Specialist Lab, [facility] 1.2. 840.114 [id number] Univers 07:08:42 08:54:21 Visit Dion [facility] 350.1.13.1 0 ity of [place] 4.2.7.2.686 Loc as Professio [phone] Ak dical nal [address] [place] [address] 2020-08-20 2020-08-20 Telephone [facility] [id number] Univers 00:00:00 00:00:00 [facility] [id number] it y of [place] 4.2.7.2.686 Loc as Professio [phone] Ak dical nal [address] [place] [address] 2020-08-15 2020-08-15 Office [facility] 1.2.840.114 [id number] Univers 15:39:23 15:54:23 Visit [facility] 350.1.13.10 it y of [place] 4.2.7.2.686 Loc as Professio [phone] Ak dical nal [address] [place] [address] 2020-08-15 2020-08-15 Outpatient R GERDA [facility] [id number] Univers 15:45:00 15:45:00 HAMILTON ity of [facility] 2020-08-14 2020-08-14 Laboratory Lab, [facility] I [facility] 1.2. 840.114 [id number] Univers 17:31:12 17:51:12 Only [facility] 350.1.13.10 ity of [place] 4.2.7.2.686 Loc as Professio [phone] Ak dical nal [address] [place] [address] 2020-08-14 2020-08-14 [facility] [id number] Univers 17:40:00 17:40:00 DAWN ity of [facility] 2020-06-10 2020-06-10 Refcarlton [facility] 1.2.840.114 [id number] Univers 00:00:00 00:00:00 Wondiful [facility] 350.1.13.10 ity of [place] 4.2.7.2.686 Loc as Professio [phone] [address] Office [facility] 2020-05-28 2020-05-28 Laboratory Lab, Adc Fam Pob I [facility] 1.2. 840.114 [id number] Univers 10:43:51 11:03:51 Only [facility] 350.1.13.10 ity of [place] 4.2.7.2.686 Loc as Professio [phone] [address] 2020-05-28 2020-05-28 Outpatient R ANGELIA [facility] [id number] Univers 11:00:00 11:00:00 GALLO ity of [facility] 2020-04-17 2020-04-17 Latrice [facility] 1.2.840.114 [id number] Univers 00:00:00 00:00:00 [facility] 350.1.13.10 it y of [place] 4.2.7.2.686 Loc as Professio [phone] [address] 2020-04-12 2020-04-12 Lat[facility] 1.2.840.114 [id number] Univers 00:00:00 00:00:00 Wondiful A [place] 350.1.13.10 ity of [place].2.[place] Profess[place] [phone] [address] 2020-01-31 2020-01-31 Latrice [facility] 1.2.840.114 [id number] Univers 00:00:00 00:00:00 Wondiful [facility] 350.1.13.10 ity of [place] 4.2.7.2.686 Loc as Professio [phone] [address] Office Building One 2020-01-15 2020-01-15 Refill Landon [facility] 1.2.840.114 [id number] Univers 00:00:00 00:00:00 [facility] 350.1.13.10 it y of [place] 4.2.7.2.686 Loc as Professio [phone] [address] Office [facility] One 2020-01-09 2020-01-09 Telephone Hesham [facility] 1.2.840.114 [id number] Univers 00:00:00 00:00:00 Wondiful A [place] 350.1.13.10 ity of [place].2.[place] Professio [phone] [address] 2020-01-04 2020-01-04 Telephone Landon [facility] [id number] Univers 00:00:00 00:00:00 [facility] 350.1.13.10 it y of [place] 4.2.7.2.686 Loc as Professio [phone] [address] Office [facility] One 2020 2020 Refill Hesham [facility] 1.2.840.114 [id number] Univers 00:00:00 00:00:00 W[facility]iful [facility] 350.1.13.10 ity of [place] 4.2.7.2.686 Loc as Professio [phone] [address] One 2019-12-14 2019-12-14 Refill Hesham [facility] 1.2.840.114 [id number] Univers 00:00:00 00:00:00 W[facility]iful [facility] 350.1.13.10 ity of [place] 4.2.7.2.686 Loc as Professio [phone] [address] Office [facility] One 2019-11-28 2019-11-28 Office Angelia [facility] 1.2.840.114 [id number] Univers 09:39:01 10:26:21 Visit [facility] 350.1.13.10 it y of [place] 4.2.7.2.686 Loc as Professio [phone] [address] One 2019-11-28 2019-11-28 Orders Doctor MOHAMUD 1.2.840.114 [id number] Univers 00:00:00 00:00:00 Only Unassigned, REYNA 350.1.13.10 ity of [place] [facility] 4.2.7.2.686 Loc as [phone] [address] 2019-11-28 2019-11-28 Letter Angelia [facility] 1.2.840.114 [id number] Univers 00:00:00 00:00:00 (Out) [facility] 350.1.13.10 it y of [place] 4.2.7.2.686 Loc as Professio [phone] [address] One 2019-11-07 2019-11-07 Letter Landon [facility] 1.2.840.114 [id number] Univers 00:00:00 00:00:00 (Out) [facility] 350.1.13.10 it y of [place] 4.2.7.2.686 Loc as Professio [phone] [address] One 2019-10-27 2019-10-27 Latrice Dahl I[facility]I 1.2.840.114 [id number] Univers 00:00:00 00:00:00 W[facility]iful [facility] 350.1.13.10 ity of [place] 4.2.7.2.686 Loc as Professio [phone] [address] One 2019-06-17 2019-06-17 Latrice Dahl [facility] 1.2.840.114 [id number] Univers 00:00:00 00:00:00 [facility] 350.1.13.10 ity of [place] 4.2.7.2.686 Loc as Professio [phone] [address] One 2019-05-23 2019-05-23 Thad Dahl [facility] 1.2.840.114 [id number] Univers 00:00:00 00:00:00 W[facility]iful [facility] 350.1.13.10 ity of [place] 4.2.7.2.686 Loc as Professio [phone] Ak dical [address] Office Building One 2018-10-19 2018-10-19 Outpatient Adrianne DAHL [facility] [id number] Univers 00:00:00 00:00:00 WONDIFUL ity o f [facility] 2018-10-19 2018-10-19 Outpatient Adrianne DAHL [facility] [id number] Univers 00:00:00 00:00:00 WONDIFUL ity o f [facility] 2018-10-19 2018-10-19 Outpatient Adrianne DAHL [facility] [id number] Univers 00:00:00 00:00:00 WONDIFUL ity o f [facility] Results Test Description Test Time Test Comments Results Result Comments Source POCT SARS-COV-2 ANTIGEN (BINAX NOW) 2022-06-20 15:08:00 Test Item Value Reference Range Interpretation Comme nts POCT SARS-COV-2 ANTIGEN (test code = 5076) Positive Not Detecte d A On board controls acceptable with C Line (test code = 3574) Yes Lab Interpretation (test code = 73274-2) [facility]BINAX NOW)2022-06-16 18:12:00 Test Item Value Reference Range Interpretation Comments POCT SARS-COV-2 ANTIGEN Positive Not Detected A (test code = 5076) On board controls Yes acceptable with C Line (test code = 3574) KELBY (test code = KELBY) accurate development and interpretation of all internal controls Lab Interpretation Abnormal (test code = 31270-1) [facility] Notes Date/Time Note Provider Source 2023-04-22 13:36:39-00:00 Formatting of this note is d ifferent from the original. [facility] Chief Complaint Patient presents with Consultation Pt presents with "foggy hea d", hard to concentrate, fatigue and sweaty x 1 week Vitals: 04/22/23 1334 BP: 139/80 Pulse: 69 Resp: 16 Temp: 97.7 ?F (36.5 ?C) TempSrc: Tympanic SpO2: 97% Weight: 199 lb 3.2 oz (90.4 kg) Height: 5' 3" (1.6 m) PainSc: 0/10
[2023-04-23] MEDS ORDERED: DIPHENHYDRAMINE 50 MG/ML VIAL ONE (10:48)
[2023-04-23] MEDS ORDERED: METOCLOPRAMIDE 10 MG/2mL INJ ONE (10:48)
[2023-04-23] MEDS ORDERED: ACETAMINOPHEN 500 MG TAB ONE (10:48)
[2023-04-23] MEDS ORDERED: NA CHLORIDE 0.9% 2,000 ML ONE (10:49)
[2023-04-23] MEDS ORDERED: Magnesium Sulfate 2gm IVPB 2 G/50 ML BAG IV ONE (10:49)
--- NOTE | 2023-04-23 10:56 | RAD REPORT ---
EXAM DESCRIPTION: CT - Head Brain Wo Cont - 04/23/2023 10:37 am CLINICAL HISTORY: HEADACHE COMPARISON: No comparisons TECHNIQUE: Noncontrast head CT images were obtained without IV contrast. Multiplanar reformats were generated and reviewed. All CT scans are performed using dose optimization technique as appropriate and may include automated exposure control or mA/KV adjustment according to patient size. FINDINGS: No intracranial hemorrhage, mass, or edema. Midline structures are unremarkable. Normal ventricular caliber for age. Silvestre-white matter differentiation is preserved, without evidence of acute infarct. No abnormal extra- axial fluid collections. Mastoid air cells and visualized portions of the paranasal sinuses are clear. No acute bony findings. IMPRESSION: No evidence of an acute intracranial process.
[2023-04-23 10:57] LABS: Absolute Lymphocytes (CBC) 2.7 K/uL (0.7-4.9); Hematocrit 41.9 % (36.0-45.0); Lymphocytes % 24.4 % (15.3-44.8); MPV 8.5 fL (7.6-11.3); RBC Red Blood Cell Count 4.76 M/uL (3.86-4.86)
[2023-04-23 11:15] LABS: Albumin 3.9 g/dL (3.4-5.0); Bilirubin Total 0.5 mg/dL (0.2-1.0); Magnesium 1.9 mg/dL (1.6-2.4); Potassium 3.4 mEq/L (3.5-5.1); Protein, Total 7.6 g/dL (6.4-8.2); Troponin High Sensitivity 3.4 pg/mL (<58.9)
--- NOTE | 2023-04-23 11:35 | EDPHYS ---
Physician Documentation [facility] Name: Lila Harry Age: 58 yrs Sex: Female : 1965 Arrival Date: 04/23/2023 Time: 10:03 Bed 17 Private MD: Dontrell Mary ED Physician Rey Collier HPI: 04/23 11:35 This 58 yrs old Female presents to ER via Ambulatory with complaints of Headache, Eye rt Pain, Dizziness, head fogginess. 11:37 This 58 yrs old Female presents to ER via Ambulatory with complaints of Headache, Eye rt Pain, Dizziness, head fogginess. 11:37 Patient presents to the ED with headache since Thursday. She reports that the pain is rt behind the right eye, radiating posteriorly, is throbbing in nature. She has light sensitivity. Patient states that this is consistent with prior episodes of migraine headaches. It has been intermittent since then. Patient states that when she gets a headache, she reports that she is foggy, with slow responses but denies confusion. Denies numbness, weakness. Denies other acute complaints at this time, symptoms are moderate severity, no other aggravating or alleviating factors.. Historical: - Allergies: 10:16 Codeine (Upset stomach); ll1 10:16 Latex, Natural Rubber; ll1 10:16 Sulfa (Sulfonamide Antibiotics); ll1 10:16 Lisinopril; ll1 - PMHx: 10:16 Hypertension; Diabetes - NIDDM; Depression; GERD; ll1 - PSHx: 10:16 section; total hysterectomy; ll1 - Immunization history:: Client reports receiving the 2nd dose of the Covid vaccine. - Social history:: Smoking status: Patient denies any tobacco usage or history of. - Family history:: not pertinent. ROS: 11:37 Constitutional: Negative for fever, chills, and weight loss, Cardiovascular: Negative rt for chest pain, palpitations, and edema, Respiratory: Negative for shortness of breath, cough, wheezing, and pleuritic chest pain, Abdomen/GI: Negative for abdominal pain, nausea, vomiting, diarrhea, and constipation, MS/Extremity: Negative for injury and deformity, Skin: Negative for injury, rash, and discoloration, Psych: Negative for depression, anxiety, suicide ideation, homicidal ideation, and hallucinations. 11:37 Neuro: Positive for headache, Negative for altered mental status, weakness. Exam: 11:37 Constitutional: This is a well developed, well nourished patient who is awake, alert, rt and in no acute distress. Chest/axilla: Normal chest wall appearance and motion. Nontender with no deformity. No lesions are appreciated. Cardiovascular: Regular rate and rhythm with a normal S1 and S2. No gallops, murmurs, or rubs. Normal PMI, no JVD. No pulse deficits. Respiratory: Lungs have equal breath sounds bilaterally, clear to auscultation and percussion. No rales, rhonchi or wheezes noted. No increased work of breathing, no retractions or nasal flaring. Abdomen/GI: Soft, non-tender, with normal bowel sounds. No distension or tympany. No guarding or rebound. No evidence of tenderness throughout. Skin: Warm, dry with normal turgor. Normal color with no rashes, no lesions, and no evidence of cellulitis. MS/ Extremity: Pulses equal, no cyanosis. Neurovascular intact. Full, normal range of motion. Psych: Awake, alert, with orientation to person, place and time. Behavior, mood, and affect are within normal limits. 11:37 Head/face: Normocephalic, no tenderness over temporal arteries. 11:37 Eyes: Extraocular muscles intact, pupils equally round and reactive, conjunctiva normal, no visual field deficits. 11:37 ECG was reviewed by the Attending Physician. 11:37 Neuro: Speech normal, cranial nerves II through XII intact, strength and sensation intact in upper and lower extremities no ataxia on [id number]. Vital Signs: 10:17 BP 126 / 84; Pulse 65; Resp 16; Temp 98.2; Pulse Ox 100% on R/A; Weight 90.26 kg; ll1 Height 5 ft. 3 in. ; Pain 0/10; 12:08 BP 126 / 83; Pulse 65; Resp 16; Pulse Ox 99% on R/A; mb9 10:17 Body Mass Index 35.25 (90.26 kg, 160.02 cm) ll1 10:17 Pain Scale: Adult ll1 NIH Stroke Scale Scores: 11:37 NIHSS Score: 0 rt MDM: 10:15 Patient medically screened. rt 11:37 Differential diagnosis: Intracranial hemorrhage, tumor, complex migraine, TIA, temporal rt arteritis. Data reviewed: vital signs, nurses notes, lab test result(s), EKG, radiologic studies. Consideration of Admission/Observation Escalation of care including admission/observation considered. Discussed with patient that TIA was not completely excluded, however, believe that it is less likely, with a complex migraine is the most likely diagnosis. Offered patient admission, she states that she wishes to follow-up with neurology as an outpatient, with this is reasonable, discussed return precautions with the patient.. I considered the following discharge prescriptions or medication management in the emergency department Medications were administered in the Emergency Department. See MAR. Independent interpretation of the following test(s) in the Emergency Department CT Scan: My interpretation is No hemorrhage seen on interpretation of CT scan images. Care significantly affected by the following chronic conditions: Diabetes, Hypertension. Counseling: I had a detailed discussion with the patient and/or guardian regarding: the historical points, exam findings, and any diagnostic results supporting the discharge/admit diagnosis, lab results, radiology results, the need for outpatient follow up, to return to the emergency department if symptoms worsen or persist or if there are any questions or concerns that arise at home. Response to treatment: the patient's symptoms have resolved after treatment. 04/23 10:28 Order name: CBC with Diff; Complete Time: 11: rt 04/23 10:28 Order name: CMP; Complete Time: 11: rt 04/23 10:28 Order name: Magnesium; Complete Time: 11: rt 04/23 10:28 Order name: Troponin High Sensitivity; Complete Time: 11: rt 04/23 10:28 Order name: CT Head Brain wo Cont; Complete Time: 11: rt 04/23 10:28 Order name: EKG; Complete Time: 10: rt 04/23 10:28 Order name: EKG - Nurse/Tech; Complete Time: 11:06 rt EC:37 Rate is 68 beats/min. Rhythm is regular, Normal Sinus Rhythm with No ectopy. QRS [place] rt is Normal. IN interval is normal. QRS interval is normal. QT interval is normal. No Q waves. T waves are Normal. No ST changes noted. Interpreted by me. Administered Medications: 10:54 Drug: Acetaminophen PO 1000 mg Route: PO; ap3 10:55 Drug: metoCLOPramide IVP 10 mg Route: IVP; Site: right antecubital; ap3 10:55 Drug: diphenhydrAMINE IVP 25 mg Route: IVP; Site: right antecubital; ap3 10:55 Drug: NS 0.9% IV (20 ml/kg) 20 ml/kg Route: IV; Rate: 1 bolus; Site: right antecubital; ap3 11:13 Drug: Magnesium Sulfate IVPB 2 grams Route: IVPB; Infused Over: 2 hrs; Site: right ap3 antecubital; Disposition Summary: 04/23/23 11:34 Discharge Ordered Location: Home rt Problem: new rt Symptoms: are resolved rt Condition: Stable rt Diagnosis - Complex Migraine rt Followup: rt - With: Private Physician - When: 2 - 3 days - Reason: Followup: rt - With: Jasbir Pascal MD - When: 2 - 3 days - Reason: Discharge Instructions: - Discharge Summary Sheet rt - Migraine Headache rt Forms: - Medication Reconciliation Form rt - Thank You Letter rt - Antibiotic Education rt - Prescription Opioid Use rt - Patient Portal Instructions rt NIH Stroke Scale - NIH Stroke Score Date: 04/23/2023 Time: 11:37 Total Score = 0 10. Dysarthria (speech clarity - read or repeat words) - 0(Normal) 11. Extinction and Inattention (visual/tactile/auditory/spatial/personal) - 0(No abnormality) 1a. Level of Consciousness (LOC) - 0(Alert) 1b. Level of Consciousness (LOC) (Month \T\ Age) - 0(Both) 1c. LOC Commands (Open \T\ Closes Eyes/Beekeeper Farmer) - 0(Both) 2. Best Gaze (Lateral Gaze Paresis) - 0(Normal) 3. Visual Field Loss - 0(No visual loss) 4. Facial Palsy - 0(Normal) 5a. Left Arm: Motor (10-second hold) - 0(No drift) 5b. Right Arm: Motor (10-second hold) - 0(No drift) 6a. Left Leg: Motor (5-second hold - always test supine) - 0(No drift) 6b. Right Leg: Motor (5-second hold - always test supine) - 0(No drift) 7. Limb Ataxia (finger/nose \T\ heel/collado - test with eyes open) - 0(Absent) 8. Sensory Loss (pinprick arms/legs/face) - 0(Normal) 9. Best Language: Aphasia (description/naming/reading) - 0(No aphasia) Initials: rt Signatures: Dispatcher [employer] Maricel Schaffer RN RN ap3 Mohinder Franco RN RN ll1 Rey Collier MD MD rt
--- NOTE | 2023-04-23 11:35 | ER ---
Nurse's Notes [facility] Name: Lila Harry Age: 58 yrs Sex: Female : 1965 Arrival Date: 04/23/2023 Time: 10:03 Bed 17 Private MD: Dontrell Mary Diagnosis: Complex Migraine Presentation: 04/23 10:17 Chief complaint: Patient states: Started felling ill Thursday. KAUFMAN, nausea, fogginess. ll1 Home Covid tests negative. No fever. Coronavirus screen: Vaccine status: Patient reports receiving the 2nd dose of the covid vaccine. Client denies travel out of the [place] in the last 14 days. fatigue, headache, muscle pain, nausea, Client presents with at least one sign or symptom that may indicate coronavirus-19. Standard/surgical mask placed on the client. Ebola Screen: Patient denies travel to an Ebola-affected area in the 21 days before illness onset. Initial Sepsis Screen: Does the patient meet any 2 criteria? No. Patient's initial sepsis screen is negative. Does the patient have a suspected source of infection? No. Patient's initial sepsis screen is negative. Risk Assessment: Do you want to hurt yourself or someone else? Patient reports no desire to harm self or others. Onset of symptoms was April 20, 2023. 10:17 Method Of Arrival: Ambulatory ll1 10:17 Acuity: ANITA 3 ll1 Triage Assessment: 10:20 General: Appears in no apparent distress. Behavior is calm, cooperative, appropriate ll1 for age, Reports feeling ill for fatigue for. EENT: Reports pain eye pain at times. Neuro: Level of Consciousness is awake, alert, obeys commands, Oriented to person, place, time, situation, Appropriate for age Cash Processor are equal bilaterally Moves all extremities. Full function Speech is normal, Facial symmetry appears normal, Reports headache weakness fogginess. Cardiovascular: No deficits noted. GI: Reports nausea. 10:25 Pain: Pain began gradually, 2-3 days ago. ap3 11:35 Headache History: The patient has had previous headaches and this one is similar to ap3 previous episodes. Historical: - Allergies: 10:16 Codeine (Upset stomach); ll1 10:16 Latex, Natural Rubber; ll1 10:16 Sulfa (Sulfonamide Antibiotics); ll1 10:16 Lisinopril; ll1 - PMHx: 10:16 Hypertension; Diabetes - NIDDM; Depression; GERD; ll1 - PSHx: 10:16 section; total hysterectomy; ll1 - Immunization history:: Client reports receiving the 2nd dose of the Covid vaccine. - Social history:: Smoking status: Patient denies any tobacco usage or history of. - Family history:: not pertinent. Screenin:24 [facility] ED Fall Risk Assessment (Adult) History of falling in the last 3 months, ap3 including since admission No falls in past 3 months (0 pts). Abuse screen: Denies threats or abuse. Nutritional screening: No deficits noted. Tuberculosis screening: No symptoms or risk factors identified. Assessment: 11:34 General: Denies awaiting completion of fluids prior to discharge. ap3 12:08 Reassessment: No changes from previously documented assessment. Patient and/or family mb9 updated on plan of care and expected duration. Pain level reassessed. Patient is alert, oriented x 3, equal unlabored respirations, skin warm/dry/pink. Vital Signs: 10:17 BP 126 / 84; Pulse 65; Resp 16; Temp 98.2; Pulse Ox 100% on R/A; Weight 90.26 kg; ll1 Height 5 ft. 3 in. ; Pain 0/10; 12:08 BP 126 / 83; Pulse 65; Resp 16; Pulse Ox 99% on R/A; mb9 10:17 Body Mass Index 35.25 (90.26 kg, 160.02 cm) ll1 10:17 Pain Scale: Adult ll1 NIH Stroke Scale Scores: 11:37 NIHSS Score: 0 rt ED Course: 10:06 Patient arrived in ED. am2 10:06 Dontrell Mary DO is Private Physician. am2 10:07 Rey Collier MD is Attending Physician. rt 10:10 Arm band placed on Patient placed in an exam room, on a stretcher. ll1 10:19 Triage completed. ll1 10:24 Maricel Bower, MALLORY is Primary Nurse. ap3 10:25 Patient has correct armband on for positive identification. Bed in low position. Call ap3 light in reach. Pulse ox on. NIBP on. 10:38 CT Head Brain wo Cont In Process Unspecified. EDMS 10:50 Troponin High Sensitivity Sent. ds4 10:50 Magnesium Sent. ds4 10:50 CMP Sent. ds4 10:50 CBC with Diff Sent. ds4 10:51 Inserted saline lock: 22 gauge in right forearm, using aseptic technique. Blood ds4 collected. 11:33 Jasbir Pascal MD is Referral Physician. rt 11:34 ED physician to see patient. ap3 11:35 No provider procedures requiring assistance completed. ap3 12:28 IV discontinued, intact, bleeding controlled, No redness/swelling at site. Pressure mb9 dressing applied. Administered Medications: 10:54 Drug: Acetaminophen PO 1000 mg Route: PO; ap3 10:55 Drug: metoCLOPramide IVP 10 mg Route: IVP; Site: right antecubital; ap3 10:55 Drug: diphenhydrAMINE IVP 25 mg Route: IVP; Site: right antecubital; ap3 10:55 Drug: NS 0.9% IV (20 ml/kg) 20 ml/kg Route: IV; Rate: 1 bolus; Site: right antecubital; ap3 11:13 Drug: Magnesium Sulfate IVPB 2 grams Route: IVPB; Infused Over: 2 hrs; Site: right ap3 antecubital; Medication: 11:35 VIS not applicable for this client. ap3 Outcome: 11:34 Discharge ordered by MD. rt 12:28 Discharged to home ambulatory. mb9 12:28 Condition: stable 12:28 Discharge instructions given to patient, Instructed on discharge instructions, follow up and referral plans. Demonstrated understanding of instructions, follow-up care. 12:28 Patient left the ED. mb9 NIH Stroke Scale - NIH Stroke Score Date: 04/23/2023 Time: 11:37 Total Score = 0 10. Dysarthria (speech clarity - read or repeat words) - 0(Normal) 11. Extinction and Inattention (visual/tactile/auditory/spatial/personal) - 0(No abnormality) 1a. Level of Consciousness (LOC) - 0(Alert) 1b. Level of Consciousness (LOC) (Month \T\ Age) - 0(Both) 1c. LOC Commands (Open \T\ Closes Eyes/Agile Project Manager) - 0(Both) 2. Best Gaze (Lateral Gaze Paresis) - 0(Normal) 3. Visual Field Loss - 0(No visual loss) 4. Facial Palsy - 0(Normal) 5a. Left Arm: Motor (10-second hold) - 0(No drift) 5b. Right Arm: Motor (10-second hold) - 0(No drift) 6a. Left Leg: Motor (5-second hold - always test supine) - 0(No drift) 6b. Right Leg: Motor (5-second hold - always test supine) - 0(No drift) 7. Limb Ataxia (finger/nose \T\ heel/collado - test with eyes open) - 0(Absent) 8. Sensory Loss (pinprick arms/legs/face) - 0(Normal) 9. Best Language: Aphasia (description/naming/reading) - 0(No aphasia) Initials: rt Signatures: Dispatcher [employer] EDMS Teddy Dawson ds4 Maricel Ball am2 Maricel Bower RN RN ap3 Mohinder Franco RN RN ll1 Isi Melgoza RN RN mb9 Rey Collier MD MD rt
[2023-04-23 12:59] VITALS: TEMP 98.2
[2023-04-23 13:00] VITALS: BP 126/83; O2SAT 99
--- NOTE | 2023-04-27 11:56 | EKG ---
Test Date: 2023-04-23 Test Time: 10:58:57 [employer]ackline Operator: VANESSA MEASUREMENT RESULTS: Intervals: Rate: 68 OK: 156 QRSD: 92 QT: 416 QTc: 442 [place]: P: 8 OK: 156 QRS: 47 T: 5 INTERPRETIVE STATEMENTS: Normal sinus rhythm Normal ECG Compared to ECG 01/31/2018 15:50:20 No significant changes Electronically Signed On 04-27-23 11:48:30 CDT by Marcos Banda
== END 2023-04-23 12:28 | disposition home or self-care (01) ==
LOC: ER 10:03
DX: G44.59 Other complicated headache syndrome (principal); Z88.2 Allergy status to sulfonamides; Z88.5 Allergy status to narcotic agent; Z88.8 Allergy status to other drugs, medicaments and biological substances; Z91.040 Latex allergy status; Z91.048 Other nonmedicinal substance allergy status
CPT/HCPCS: 85025; 36415; 83735; 84484; 80053; 70450; 96375; 96374; 99284; J3475; J2765; J1200; J7030; 93005

== ENCOUNTER 2025-02-04 12:57 | Emergency (ER) | payer OTHER ==
--- OUTSIDE RECORDS SUMMARY | 2025-02-04 13:05 | XMS REPORT | Continuity of Care Document ---
Author Name Unknown Address [address] [address] [place] [address] [facility] Address [address] [place] [address] Care Team Providers Care Cold Press Operator Name Role Phone Bobby WILEY, Dion Oquendo Primary Care Physician [phone] DADA TATE Attending Clinician UnavailDEEPA Arriaza Attending Clinician Unavailable KATARINA BYNUM Attending Clinician Unava ilOSMANI Arellano Attending Clinician Unavailable LAB90 Attending Clinician Unavailable Effie [facility], Azeb Robins Att ending Clinician Unavailable VITO BRAND Attending Clinician Unavailable JESS ORR Attending Clinician Unavailable FELI MORAN Attending Clinician Unavailab MATEO Herndon Attending Clinician Unavailjace Garza, HOLTER Attending Clinician Unavailable MD KALEY Attending Clinician Unavailab shira ARGUETA [place] FURNACE Attending Clinician UnavailDEMARCUS Jiménez Attending Clinician Unavailable LAB47 Attending Clinician Unavailable 1, [facility] Attending [facility] JESSICA Horner Attending Clinician Unavailable Jake Navarrete MD Attending Clinician [phone] [facility]ician Unavailable Doctor Unassigned, [place] Attending Clinician U navailable JAKE NAVARRETE Attending Clinician Unavailable LEEROY RG Attending Clinician Unavailable Frankie RELAY OPERATOR, Mercedes Attending Clinician [phone] MERCEDES DAVID Attending Clinician Unavailabl MARICEL Ceron Attending Clinician Unavailable Elliott WILEY, Maricel Attending Clinician [phone] Only, Ang Db Test Attending Clinician Unavailabl kristin Root RELAY OPERATOR, Dawn Attending Clinician [phone] DAWN ROOT Attending Clinician Unavailable Franny Rubio RN Attending Clinician Unavailable Only, Adc Pob2 Test Attending Clinician Unavaila sobia Dahl MD, Dion Oquendo Attending Clinician [phone] EBAJAY PADILLA Attending Clinician Unavailable Unknown, Attending Attending Clinician Unavailab le Ebrahim RELAY OPERATOR, Ajay Attending Clinician [phone] Valentin Tan DO Attending Clinician [phone] VALENTIN TAN Attending Clinician Unavail able Hamilton Lorenz MD Attending Clinician [phone] Lab, Ang - Db Attending Clinician Unavailable Rachel Love RN Attending Clinician Unavailable Renee Mcfarland Attending Clinician RENEE BENNETT Attending Clinician Unav ailable HEBERT GOMEZ Attending Clinician Unavail able HEBERT GOMEZ Attending Clinician Unavail able Deirdre WILEY, Vamsi Attending Clinician [phone] Anesara RELAY OPERATOR, Gallo Attending Clinician [phone] GALLO GALAN Attending Clinician Unavailable Lab, Adc Fam Pob I Attending Clinician Unavailab le Pob, Adc Lab Main Attending Clinician UnavailGOMEZ Collins Attending Clinician Unavaila GOMEZ Nunez Attending Clinician Unavaila ble , [facility] Sleep Lab Bed Attending Clinician Unavail able Gomez Latham MD Attending Clinician [phone] DERICK FLORES Attending Clinician Unavailable Violette Garay Attending Clinician + [phone] Provider, [facility] Attending Clinician Un available Amaury Callaway MD Attending Clinician [phone] AMAURY CALLAWAY Attending Clinician Unavailable Vls-Lab Attending Clinician Unavailable DION DAHL Attending Clinician UnavailHAMILTON Ayala Attending Clinician DADA Cabrera Admitting Clinician Kath Gilmore MD, Vamsi Admitting Clinician Payers Payer Name Policy Type Policy Number Effective Date Expirati on Date Source [employer] [id number] 2015 00:00:00 [facility] 2020 9 [id number] 00:00:00 Problems Condition Name Condition Details Condition Category Status Onset Date Resolution Date Last Treatment Date Treating Clinician Comments Source DM type 2 with diabetic mixed hyperlipid emia (multi HCC) DM type 2 with diabetic mixed hyperlipid emia (multi HCC) Disease Active 12-31 00:00: 00 Alejandra Reynosoold - Externa l Moderate major depression Moderate major depression Disease Active 12-31 00:00: 00 Alejandra Vanceybold - Externa l Aortic calcificat ion Aortic calcificat ion Disease Active 12-31 00:00: 00 Alejandra Vanceybold - Externa l Essential hypertensi on Essential hypertensi on Disease Active 12-31 00:00: 00 Alejandra Reynosoold - Externa l Fatty liver Fatty liver Disease Active 12-31 00:00: 00 Alejandra Vanceybold - Externa l Irritable bowel syndrome with diarrhea Irritable bowel syndrome with diarrhea Disease Active 06-07 00:00: 00 [facility] Internal hemorrhoid Internal hemorrhoid Disease Active 06-07 00:00: 00 [facility] Diverticul osis Diverticul osis Disease Active 06-07 00:00: 00 [facility] Polyp of colon, unspecifie d part of colon, unspecifie d type Polyp of colon, unspecifie d part of colon, unspecifie d type Disease Active 06-07 00:00: [address] [facility] [place] [place] Lower abdominal pain Lower abdominal pain Disease Active 12-21 00:00: 00 [facility] Fecal urgency Fecal urgency Disease Active 12-21 00:00: 00 [facility] Gastroesop hageal reflux disease without esophagiti s Gastroesop hageal reflux disease without esophagiti s Disease Active 12-21 00:00: 00 [facility] DANIELLE (obstructi ve sleep apnea) DANIELLE (obstructi ve sleep apnea) Disease Active 11-11 00:00: 00 [facility] Atypical chest pain Atypical chest pain Disease Active 04-28 00:00: 00 [facility] Obesity (BMI 30-39.9) Obesity (BMI 30-39.9) Disease Active 04-28 00:00: 00 [facility] Fatty liver Fatty liver Disease Active 2016-10 00:00: 00 [facility] Hepatosple nomegaly Hepatosple nomegaly Disease Active 04-10 00:00: 00 [facility] Hypokalemi a Hypokalemi a Disease Active 04-02 00:00: 00 [facility] Drug-induc ed pancreatit is Drug-induc ed pancreatit is Disease Active 04-02 00:00: 00 Overview: Formattin g of this note might be different from the original[facility] (degenerat varsha disc disease), cervical DDD (degenerat varsha disc disease), cervical Disease Active 11-12 00:00: 00 [facility] Degenerati ve arthritis of cervical spine Degenerati ve arthritis of cervical spine Disease Active 11-12 00:00: 00 [facility] Drug-induc ed constipati on Drug-induc ed constipati on Disease Active 2015-10 00:00: 00 Overview: Formattin g of this note might be different from the original. [facility] Post-op pain Post-op pain Disease Active 06-23 00:00: 00 [facility] Type 2 diabetes mellitus without complicati on Type 2 diabetes mellitus without complicati on Disease Active 06-17 00:00: 00 [facility] Absence of menstruati on Absence of menstruati on Disease Active 05-30 00:00: 00 [facility] Ovarian mass Ovarian mass Disease Active 05-22 00:00: 00 [facility] Screening for colon cancer Screening for colon cancer Disease Active 05-22 00:00: 00 [facility] Essential hypertensi on, benign Essential hypertensi on, benign Disease Active 05-22 00:00: 00 [facility] Diuretic-i nduced hypokalemi a Diuretic-i nduced hypokalemi a Disease Active [facility] Depression Depression Disease Active U nivers [facility] [place] [place] Alternatin g constipati on and diarrhea Alternatin g constipati on and diarrhea Disease Resolve d 12-21 00:00: 00 2021-06-07 00:00:00 2021-06-07 10:28:41 [facility] Rectal bleeding Rectal bleeding Disease Resolve d 12-21 00:00: 00 2021-06-07 00:00:00 2021-06-07 10:28:38 [facility] Personal history of colonic polyps Personal history of colonic polyps Disease Resolve d 12-21 00:00: 00 2021-06-07 00:00:00 2021-06-07 10:28:37 [facility] Flatulence , eructation , and gas pain Flatulence , eructation , and gas pain Disease Resolve d 12-21 00:00: 00 2021-06-07 00:00:00 2021-06-07 10:28:35 [facility] URI, acute URI, acute Disease Resolve d 05-22 00:00: 00 2016-08-26 00:00:00 2016-08-26 13:45:47 [facility] Allergies, Adverse Reactions, Alerts Allergy Name Allergy Type Status Severity Reaction(s) Onset Date Inactive Date Treating Clinician Comments Source Lisinopr il Drug Intolera nce Active Cough 04-08 00:00: 00 Alejandra Seybold - Externa l LISINOPR IL DRUG INGREDI Active COUGH 04-08 00:00: 00 [facility] Lisinopr il Drug Intolera nce Active Cough 04-08 00:00: 00 [facility] Liraglut eduardo Propensi ty to adverse reaction s Active Other 04-02 00:00: 00 pancreati tis Alejandra Sebethold - Externa l LIRAGLUT EDUARDO DRUG INGREDI Active Other-Cmnt 04-02 00:00: 00 [facility] Liraglut eduardo Propensi ty to adverse reaction s Active Other - See comments 04-02 00:00: 00 pancreati tis [facility] Codeine Propensi ty to adverse reaction s Active Nausea and Vomiting 0 06-01 00:00: 00 Alejandra Reynosoold - Externa l Latex Propensi ty to adverse reaction s Active Rash 06-01 00:00: 00 Alejandra Piper - Externa l Sulfa Drugs Propensi ty to adverse reaction s Active Itching 06-01 00:00: 00 Alejandra Piper - Externa l CODEINE DRUG INGREDI Active N/V 06-01 00:00: 00 [facility] LATEX DRUG INGREDI Active Rash 06-01 00:00: 00 [facility] SULFA (SULFONA MIDE ANTIBIOT ICS) Drug Class Active ITCHING 0 06-01 00:00: 00 [facility] Latex Propensi ty to adverse reaction s Active Rash 06-01 00:00: 00 [facility] Sulfa (Sulfona mide Antibiot ics) Propensi ty to adverse reaction s Active Itching 0 06-01 00:00: 00 [facility] Social History Social Habit Start Date Stop Date Quantity Comments Source Gender identity 2023-03-06 09:21:36 Identifies as female gender (finding) Alejandra Piper - External Sexual orientation U [facility] ASSERTION Not Alejandra Piper - External Alcohol intake 2024-01-01 00:00:00 2024-01-01 00:00:00 Ex-drinker (finding) Alejandra Vancebethmarlys - External Tobacco use and exposure 2023-01-08 00:00:00 2023-01-08 00:00:00 Smokeless tobacco non-user Alejandra Piper - External Sex 2022-11-12 10:23:56 2022-11-12 10:23:56 Female (finding) Alejandra Piper - External Exposure to SARS-CoV-2 (event) 2022-07-01 00:00:00 2022-07-11 09:18:00 Not sure [facility] History of Social function 2022-06-30 00:00:00 2022-06-30 00:00:00 [facility] Alcoholic beverage intake 2018-10-18 00:00:00 2018-10-18 00:00:00 0 /d [facility] Sex assigned at 1965 00:00:00 1965 00:00:00 F Alejandra Piper - External Smoking Status Start Date Stop Date Source Never smoked tobacco Alejandra Piper - External Medications Ordered Medication Name Filled Medication Name Start Date Stop Date Current Medication? Ordering Clinician Indication Dosage Frequency Signature (SIG) Comments Components Source Ibuprofen (MOTRIN) 200 MG oral Tablet 01-13 15:58: 05 Yes 200mg Q.25D Take 1 tablet (200 mg total) by mouth every 6 hours as needed. Alejandra fonseca Levocetiriz ine Dihydrochlo ride 5 MG oral Tablet 01-13 15:58: 05 Yes 5mg QD Take 1 tablet (5 mg total) by mouth nightly. Alejandra fonseca Ascorbic Acid (Vitamin C) 500 MG oral Tablet 01-13 15:58: 05 Yes 500mg QD Take 1 tablet (500 mg total) by mouth daily. Alejandra fonseca Cholecalcif eliseo (Vitamin D3) 50 MCG (2000 UT) oral Capsule 01-13 15:58: 05 Yes Alejandra fonseca Pyridoxine HCl (Vitamin B-6) 100 MG oral Tablet 01-13 15:58: 05 Yes Alejandra fonseca Esomeprazol e Magnesium 20 MG oral Pack 01-13 15:58: 05 Yes Alejandra fonseca Meloxicam 15 MG oral Tablet 01-13 00:00: 00 Yes [id number] 15mg QD Take 1 tablet (15 mg total) by mouth daily. Alejandra fonseca Tirzepatide (Mounjaro) 12.5 MG/0.5ML subcutaneou s Solution Auto-inject or 3-30 00:00: 00 Yes [id number] 3 12.5mg Q1W Inject 12.5 mg into the skin once a week. Alejandra fonseca Rosuvastati n Calcium 20 MG oral Tablet 12-06 00:00: 00 Yes [id number] 3 20mg TAKE 1 TABLET BY MOUTH AT BEDTIME Alejandra fonseca Losartan Potassium 25 MG oral Tablet 12-06 00:00: 00 Yes [id number] 25mg QD TAKE 1 TABLET BY MOUTH DAILY Alejandra fonseca Metoprolol Tartrate (LOPRESSOR) 50 MG oral Tablet 12-06 00:00: 00 Yes [id number] 50mg Q.5D TAKE 1 TABLET BY MOUTH TWICE DAILY Alejandra fonseca Venlafaxine HCl 100 MG oral Tablet 12-06 00:00: 00 Yes [id number] 100mg Q.5D TAKE 1 TABLET BY MOUTH TWICE DAILY Alejandra fonseca Montelukast (SINGULAIR) 10 MG oral Tablet tablet 12-06 00:00: 00 Yes [id number] 10mg QD TAKE 1 TABLET BY MOUTH NIGHTLY Alejandra fonseca Valacyclovi r HCl 1 g oral Tablet 18 00:00: 00 Yes [id number] 2000mg Q.5D Take 2 tablets (2,000 mg total) by mouth 2 times daily. Alejandra fonseca Erythromyci n 2 % apply externally Gel - 00:00: 00 Yes [id number] 1{appli cation} QD Apply 1 Applicatio n topically daily. Alejandra fonseca Doxycycline Hyclate 100 MG oral Tablet -24 00:00: 00 01-13 00:00 :00 No [id number] 100mg Q.5D Take 1 tablet (100 mg total) by mouth 2 times daily. Alejandra fonseca Meloxicam 15 MG oral Tablet 1-15 00:00: 00 01-13 00:00 :00 No [id number] 15mg QD Take 1 tablet (15 mg total) by mouth daily. Alejandra fonseca dexAMETHaso ne 2 MG oral Tablet 2023-10-16 00:00: 00 01-13 00:00 :00 No [id number] 4mg QD Take 2 tablets (4 mg total) by mouth daily (with breakfast) . Alejandra fonseca Cyclobenzap rine HCl 5 MG oral Tablet 2023-10-16 00:00: 00 01-13 00:00 :00 No [id number] 5mg Q.[id number] 3D Take 1 tablet (5 mg total) by mouth 3 times daily as needed for muscle spasms. Alejandra fonseca Ibuprofen (MOTRIN) 200 MG oral Tablet 2023-10 10:37: 46 Yes 200mg Q.25D Take 1 tablet (200 mg total) by mouth every 6 hours as needed. Alejandra fonseca Levocetiriz ine Dihydrochlo ride 5 MG oral Tablet 2023-10 10:37: 46 Yes 5mg QD Take 1 tablet (5 mg total) by mouth nightly. Alejandra fonseca Ascorbic Acid (Vitamin C) 500 MG oral Tablet 2023-10 10:37: 46 Yes 500mg QD Take 1 tablet (500 mg total) by mouth daily. Alejandra fonseca Cholecalcif eliseo (Vitamin D3) 50 MCG (2000 UT) oral Capsule 2023-10 10:37: 46 Yes Alejandra fonseca Pyridoxine HCl (Vitamin B-6) 100 MG oral Tablet 2023-10 10:37: 46 Yes Alejandra fonseca Ibuprofen (MOTRIN) 200 MG oral Tablet 9-20 08:00: 37 Yes 200mg Q.25D Take 1 tablet (200 mg total) by mouth every 6 hours as needed. Alejandra fonseca Levocetiriz ine Dihydrochlo ride 5 MG oral Tablet 07-01 08:00: 37 Yes 5mg QD Take 1 tablet (5 mg total) by mouth nightly. Alejandra fonseca Ascorbic Acid (Vitamin C) 500 MG oral Tablet 07-01 08:00: 37 Yes 500mg QD Take 1 tablet (500 mg total) by mouth daily. Alejandra fonseca Cholecalcif eliseo (Vitamin D3) 50 MCG (2000 UT) oral Capsule 07-01 08:00: 37 Yes Alejandra fonseca Pyridoxine HCl (Vitamin B-6) 100 MG oral Tablet 07-01 08:00: 37 Yes Alejandra fonseca Tirzepatide (Mounjaro) 12.5 MG/0.5ML subcutaneou s Solution Pen-injecto r 07-01 00:00: 00 Yes [id number] 3 12.5mg Q1W Inject 0.5 mL (12.5 mg total) into the skin once a week. Alejandra fonseca linaCLOtide (Linzess) 145 MCG oral Capsule 07-01 00:00: 00 Yes [id number] 145ug QD Take 1 capsule (145 mcg total) by mouth daily. Alejandra fonseca Mounjaro 12.5 MG/0.5ML subcutaneou s Solution Pen-injecto r 24 00:00: 00 07-01 00:00 :00 No Alejandra fonseca Tirzepatide (Mounjaro) 10 MG/0.5ML subcutaneou s Solution Pen-injecto r 16 00:00: 00 07-01 00:00 :00 No [id number] 3 10mg Q1W Inject 0.5 mL (10 mg total) into the skin once a week. Alejandra fonseca Ibuprofen (MOTRIN) 200 MG oral Tablet 05-06 14:51: 37 Yes 200mg Q.25D Take 1 tablet (200 mg total) by mouth every 6 hours as needed. Alejandra fonseca Levocetiriz ine Dihydrochlo ride 5 MG oral Tablet 05-06 14:51: 37 Yes 5mg QD Take 1 tablet (5 mg total) by mouth nightly. Alejandra fonseca Ascorbic Acid (Vitamin C) 500 MG oral Tablet 05-06 14:51: 37 Yes 500mg QD Take 1 tablet (500 mg total) by mouth daily. Alejandra fonseca Tirzepatide (Mounjaro) 12.5 MG/0.5ML subcutaneou s Solution Pen-injecto r 05-06 00:00: 00 Yes [id number] 3 12.5mg Q1W Inject 0.5 mL (12.5 mg total) into the skin once a week. Alejandra fonseca Dicyclomine HCl 10 MG oral Capsule 05-06 00:00: 00 Yes [id number] 10mg Take 1 capsule (10 mg total) by mouth 4 times daily (before meals and nightly). Alejandra fonseca Montelukast (SINGULAIR) 10 MG oral Tablet tablet 05-03 00:00: 00 Yes [id number] 10mg QD TAKE ONE (1) TABLET BY MOUTH NIGHTLY. Alejandra fonseca Benzonatate 200 MG oral Capsule -10 00:00: 00 05-06 00:00 :00 No [id number] 200mg Q.[id number] 3D Take 1 capsule (200 mg total) by mouth 3 times daily as needed for cough. Alejandra fonseca Tirzepatide (Mounjaro) 10 MG/0.5ML subcutaneou s Solution Pen-injecto r 03-03 00:00: 00 05-06 00:00 :00 No [id number] 3 10mg Q1W Inject 0.5 mL (10 mg total) into the skin once a week. Alejandra fonseca Cyclobenzap rine HCl 5 MG oral Tablet 30 00:00: 00 05-06 00:00 :00 No [id number] 5mg Q.[id number] 3D Take 1 tablet (5 mg total) by mouth 3 times daily as needed for muscle spasms. Alejandra fonseca Ibuprofen (MOTRIN) 200 MG oral Tablet 12-31 08:06: 34 Yes 200mg Q.25D Take 1 tablet (200 mg total) by mouth every 6 hours as needed. Alejandra fonseca Levocetiriz ine Dihydrochlo ride 5 MG oral Tablet 12-31 08:06: 34 Yes 5mg Take 1 tablet (5 mg total) by mouth nightly. Alejandra fonseca Ascorbic Acid (Vitamin C) 500 MG oral Tablet 12-31 08:05: 50 Yes 500mg Take 1 tablet (500 mg total) by mouth daily. Alejandra fonseca Tirzepatide (Mounjaro) 7.5 MG/0.5ML subcutaneou s Solution Pen-injecto r 12-31 00:00: 00 Yes [id number] 3 7.5mg Inject 0.5 mL (7.5 mg total) into the skin once a week. Alejandra fonseca Montelukast (Singulair) 10 MG oral Tablet tablet 12-31 00:00: 00 Yes [id number] 10mg Take 1 tablet (10 mg total) by mouth nightly. Alejandra fonseca Losartan Potassium 25 MG oral Tablet 12-31 00:00: 00 Yes [id number] 25mg QD Take 1 tablet (25 mg total) by mouth daily. Alejandra fonseca Metoprolol Tartrate (LOPRESSOR) 50 MG oral Tablet 12-31 00:00: 00 Yes [id number] 50mg Q.5D Take 1 tablet (50 mg total) by mouth 2 times daily. Alejandra fonseca Rosuvastati n Calcium 20 MG oral Tablet 12-31 00:00: 00 Yes [id number] 3 20mg Take 1 tablet (20 mg total) by mouth at bedtime. Alejandra fonseca Venlafaxine HCl 100 MG oral Tablet 12-31 00:00: 00 Yes [id number] 100mg Q.5D Take 1 tablet (100 mg total) by mouth 2 times daily. Alejandra fonseca hydroCHLORO thiazide 25 MG oral Tablet 12-31 00:00: 00 Yes [id number] 25mg QD Take 1 tablet (25 mg total) by mouth daily. Alejandra fonseca Metformin HCl 1000 MG oral Tablet 12-31 00:00: 00 Yes [id number] 1000mg Take 1 tablet (1,000 mg total) by mouth in the morning and 1 tablet (1,000 mg total) in the evening. Take with meals. Alejandra fonseca Tirzepatide (Mounjaro) 5 MG/0.5ML subcutaneou s Solution Pen-injecto r 2 00:00: 00 12-31 00:00 :00 No [id number] 5mg Inject 0.5 mL (5 mg total) into the skin once a week. Alejandra fonseca Rosuvastati n Calcium 20 MG oral Tablet 2-05 00:00: 00 12-31 00:00 :00 No 20mg Take 1 tablet (20 mg total) by mouth at bedtime. Alejandra fonseca Venlafaxine HCl 100 MG oral Tablet 2- 00:00: 00 12-31 00:00 :00 No [id number] 100mg Take 1 tablet (100 mg total) by mouth 2 times daily. Alejandra fonseca Montelukast (Singulair) 10 MG oral Tablet tablet 2-05 00:00: 00 12-31 00:00 :00 No [id number] 10mg Take 1 tablet (10 mg total) by mouth nightly. Alejandra fonseca Losartan Potassium 25 MG oral Tablet 2-05 00:00: 00 12-31 00:00 :00 No [id number] 25mg Take 1 tablet (25 mg total) by mouth daily. Alejandra fonseca Metoprolol Tartrate (LOPRESSOR) 50 MG oral Tablet 2-05 00:00: 00 12-31 00:00 :00 No [id number] 50mg Take 1 tablet (50 mg total) by mouth 2 times daily. Alejandra fonseca Metformin HCl 1000 MG oral Tablet 2-05 00:00: 00 12-31 00:00 :00 No [id number] 1000mg Take 1 tablet (1,000 mg total) by mouth in the morning and 1 tablet (1,000 mg total) in the evening. Take with meals. Alejandra fonseca Pseudoeph-B romphen-DM 30-2-10 MG/5ML oral Syrup 2- 00:00: 00 12-31 00:00 :00 No [id number] 10mL Q.25D Take 10 mL by mouth 4 times daily as needed. Alejandra fonseca Fluconazole 150 MG oral Tablet -31 00:00: 00 05-06 00:00 :00 No [id number] 150mg Take 1 tablet (150 mg total) by mouth every 72 hours. Alejandra fonseca Valacyclovi r HCl 1 g oral Tablet - 00:00: 00 07-01 00:00 :00 No [id number] 2000mg Q.5D Take 2 tablets (2,000 mg total) by mouth 2 times daily. Alejandra fonseca Benzonatate (Tessalon Perles) 100 MG oral Capsule 1-15 00:00: 00 12-31 00:00 :00 No [id number] 100mg Q.[id number] 3D Take 1 capsule (100 mg total) by mouth 3 times daily as needed for cough. Alejandra fonseca Amoxicillin -Pot Clavulanate 875-125 MG oral Tablet 1-04 00:00: 00 12-31 00:00 :00 No [id number] 1{tbl} Take 1 tablet by mouth 2 times daily. Alejandra fonseca predniSONE (DELTASONE) 10 MG oral tablet 1-04 00:00: 00 12-31 00:00 :00 No [id number] 10mg Take 1 tablet (10 mg total) by mouth daily. Alejandra fonseca GlipiZIDE 5 MG oral TABLET SR 24 HR 2022-10 2-26 00:00: 00 12-31 00:00 :00 No [id number] 5mg TAKE ONE (1) TABLET(S) BY MOUTH ONCE A DAY. Alejandra fonseca Aspirin 81 MG oral Tablet Delayed Response 2022-10-13 00:00: 00 Yes 81mg QD Take 1 tablet (81 mg total) by mouth daily. Alejandra fonseca Ibuprofen (MOTRIN) 200 MG oral Tablet 2022-10 10:51: 51 Yes 200mg Q.25D Take 1 tablet (200 mg total) by mouth every 6 hours as needed. Alejandra fonseca Levocetiriz ine Dihydrochlo ride 5 MG oral Tablet 2022-10 10:51: 51 Yes Alejandra fonseca Ascorbic Acid (Vitamin C) 500 MG oral Tablet 2022-10 10:51: 51 Yes Alejandra fonseca Tirzepatide (Mounjaro) 2.5 MG/0.5ML subcutaneou s Solution Pen-injecto r 2022-10 00:00: 00 Yes [id number] 2.5mg Inject 0.5 mL (2.5 mg total) into the skin once a week. Alejandra fonseca Metformin HCl 1000 MG oral Tablet 2022-10 0 00:00: 00 Yes [id number] 1000mg Take 1 tablet (1,000 mg total) by mouth in the morning and 1 tablet (1,000 mg total) in the evening. Take with meals. Alejandra fonseca Metoprolol Tartrate (LOPRESSOR) 50 MG oral Tablet 2022-10 0-19 00:00: 00 Yes [id number] 50mg Take 1 tablet (50 mg total) by mouth 2 times daily. Alejandra fonseca Venlafaxine HCl 100 MG oral Tablet 7-14 00:00: 00 Yes [id number] 100mg Take 1 tablet (100 mg total) by mouth 2 times daily Alejandra fonseca Ibuprofen (MOTRIN) 200 MG oral Tablet 04-22 13:33: 53 Yes 200mg Q.25D Take 1 tablet (200 mg total) by mouth every 6 hours as needed Alejandra fonseca Levocetiriz ine Dihydrochlo ride 5 MG oral Tablet 04-22 13:33: 53 Yes Alejandra fonseca Venlafaxine HCl 100 MG oral Tablet 04-22 00:00: 00 Yes [id number] 100mg Take 1 tablet (100 mg total) by mouth 2 times daily Alejandra fonseca Metoprolol Tartrate (LOPRESSOR) 50 MG oral Tablet 04-20 00:00: 00 Yes [id number] 50mg Take 1 tablet (50 mg total) by mouth 2 times daily Alejandra fonseca Venlafaxine HCl 75 MG oral Tablet 04-20 00:00: 00 04-22 00:00 :00 No 75mg Take 1 tablet (75 mg total) by mouth 2 times daily Alejandra fonseca Ibuprofen (MOTRIN) 200 MG oral Tablet 03-06 10:55: 54 Yes 200mg Q.25D Take 1 tablet (200 mg total) by mouth every 6 hours as needed Alejandra fonseca Levocetiriz ine Dihydrochlo ride 5 MG oral Tablet 03-06 10:55: 54 Yes Alejandra fonseca Rosuvastati n Calcium 10 MG oral Tablet 02-23 00:00: 00 Yes 10mg Take 1 tablet (10 mg total) by mouth at bedtime Alejandra fonseca Ibuprofen (MOTRIN) 200 MG oral Tablet 01-08 10:37: 22 Yes 200mg Q.25D Take 200 mg by mouth every 6 hours as needed Alejandra fonseca Levocetiriz ine Dihydrochlo ride 5 MG oral Tablet 01-08 10:37: 22 Yes Alejandra fonseca B Complex Vitamins (B COMPLEX 1 OR) 2023-0 3-12 00:00: 00 Yes QD Take by mouth daily. Alejandra fonseca Pyridoxine HCl (Vitamin B-6) 100 MG oral Tablet 3-12 00:00: 00 07-01 00:00 :00 No 100mg QD Take 1 tablet (100 mg total) by mouth daily. Alejandra fonseca hydroCHLORO thiazide 25 MG oral Tablet 2-08 00:00: 00 Yes 1{tbl} Take 1 tablet by mouth daily Alejandra fonseca hydroCHLORO thiazide 25 MG oral Tablet 2-08 00:00: 00 12-31 00:00 :00 No 25mg Take 1 tablet (25 mg total) by mouth daily. Alejandra fonseca PROMETHAZIN E-DEXTROMET HORPHAN 6.25-15 mg/5 mL syrup - 00:00: 00 Yes [id number] TAKE FIVE (5) ML(S) BY MOUTH 4 TIMES DAILY NEEDED FOR COUGH. [facility] glimepiride (AMARYL) 2 mg tablet 2021-10 2- 00:00: 00 Yes [id number] 2mg Take 1 tablet by mouth daily with breakfast. [facility] Losartan Potassium 25 MG oral Tablet 2021-10 00:00: 00 Yes 25mg Take 1 tablet (25 mg total) by mouth daily Alejandra fonseca LOSARTAN 25 mg tablet 2021-10 00:00: 00 Yes [id number] TAKE 1 TABLET DAILY [facility] ciprofloxac in HCl (CIPRO) 500 mg tablet 2021-10 0- 00:00: 00 Yes [id number] 500mg Take 1 tablet by mouth every 12 (twelve) hours. [facility] predniSONE 20 mg tablet 2021-10 0-20 00:00: 00 Yes [id number] 20mg Take 1 tablet by mouth in the morning. [facility] promethazin e-dextromet horphan 6.25-15 mg/5 mL syrup 2021-10 0-20 00:00: 00 10-21 00:00 :00 No [id number] 5mL Take 5 mL by mouth 4 (four) times daily as needed for Cough. [facility] predniSONE 20 mg tablet 07-11 00:00: 00 Yes [id number] Take two tabs for three days, take one tab for three days [facility] albuterol 90 mcg/actuati on inhaler 07-04 00:00: 00 Yes [id number] 2{puff} Inhale 2 Puffs every 6 (six) hours as needed for Wheezing or Bronchospa sm. [facility] methylPREDN ISolone 4 mg tablets 07-04 00:00: 00 07-11 00:00 :00 No [id number] Take by mouth SEE-INSTRU CTIONS. follow package directions [facility] bromphenira mine-pseudo ephedrine-D M (BROMFED DM) 2-30-10 mg/5 mL syrup 06-30 00:00: 00 07-31 00:00 :00 No [id number] 5mL Take 5 mL by mouth 4 (four) times daily as needed for Congestion /Allergies . [facility] promethazin e-dextromet horphan 6.25-15 mg/5 mL syrup 06-30 00:00: 00 07-11 00:00 :00 No [id number] 5mL Take 5 mL by mouth 4 (four) times daily as needed for Cough. [facility] Rosuvastati n Calcium 10 MG oral Tablet 06-24 00:00: 00 Yes 10mg Take 10 mg by mouth at bedtime Alejandra fonseca molnupiravi r 200 mg capsule 06-16 00:00: 00 07-31 00:00 :00 No [id number] 800mg Take 4 capsules by mouth every 12 (twelve) hours. [facility] azelastine 137 mcg (0.1 %) nasal spray 06-16 00:00: 00 07-11 00:00 :00 No [id number] 1{spray } Use 1 Kapaa in each nostril in the morning and 1 Kapaa in the evening. Use in each nostril as directed [facility] benzonatate 100 mg capsule 9-05 00:00: 00 06-30 00:00 :00 No [id number] 200mg Take 2 capsules by mouth every 8 (eight) hours as needed for Cough. [facility] Metformin HCl 1000 MG oral Tablet 04-15 00:00: 00 Yes 1000mg Take 1 tablet (1,000 mg total) by mouth in the morning and 1 tablet (1,000 mg total) in the evening. Take with meals. Alejandra fonseca Metformin HCl 1000 MG oral Tablet 04-15 00:00: 00 Yes 1{tbl} Take 1 tablet by mouth in the morning and 1 tablet in the evening. Take with meals. Alejandra fonseca Metoprolol Tartrate (LOPRESSOR) 50 MG oral Tablet 04-15 00:00: 00 Yes 1{tbl} Take 1 tablet by mouth 2 times daily Alejandra fonseca Venlafaxine HCl 75 MG oral Tablet 04-15 00:00: 00 Yes 1{tbl} Take 1 tablet by mouth 2 times daily Alejandra fonseca Metoprolol Tartrate (LOPRESSOR) 50 MG oral Tablet 04-15 00:00: 00 Yes 50mg Take 1 tablet (50 mg total) by mouth 2 times daily Alejandra fonseca Venlafaxine HCl 75 MG oral Tablet 04-15 00:00: 00 Yes 75mg Take 1 tablet (75 mg total) by mouth 2 times daily Alejandra fonseca SITagliptin (JANUVIA) 100 mg tablet 5-20 00:00: 00 Yes 100mg Take 1 tablet by mouth daily. [facility] JANUVIA 100 mg tablet 3-24 00:00: 00 Yes TAKE ONE (1) TABLET(S) BY MOUTH ONCE A DAY. [facility] JANUVIA 100 mg tablet 2-17 00:00: 00 Yes TAKE ONE (1) TABLET(S) BY MOUTH ONCE A DAY. [facility] HYDROCHLORO THIAZIDE 25 mg tablet 2-14 00:00: 00 11-19 00:00 :00 No [id number] TAKE 1 TABLET DAILY [facility] ARIPIPRAZOL E 20 mg tablet 1- 00:00: 00 06-16 00:00 :00 No [id number] TAKE ONE (1) TABLET(S) BY MOUTH ONCE A DAY. [facility] VENLAFAXINE 75 mg tablet 10-17 00:00: 00 04-15 00:00 :00 No [id number] TAKE 1 TABLET TWICE A DAY [facility] METOPROLOL TARTRATE 50 mg tablet 10-17 00:00: 00 04-15 00:00 :00 No [id number] TAKE 1 TABLET TWICE A DAY [facility] METFORMIN 1,000 mg tablet 10-17 00:00: 00 04-15 00:00 :00 No [id number] TAKE 1 TABLET TWICE A DAY WITH MEALS [facility] LOSARTAN 25 mg tablet 2020-10 1-15 00:00: 00 08-21 00:00 :00 No [id number] TAKE 1 TABLET DAILY (DISCONTIN UE LISINOPRIL ) [facility] ibuprofen 200 mg tablet 06-07 09:45: 44 Yes 200mg Take 200 mg by mouth every 6 (six) hours as needed. [facility] bromphenira mine-pseudo ephedrine-D M (BROMFED DM) 2-30-10 mg/5 mL syrup 5- 00:00: 00 06-16 00:00 :00 No [id number] 5mL Take 5 mL by mouth 4 (four) times daily as needed for Congestion /Allergies or Cough. [facility] HYDROCHLORO THIAZIDE 25 mg tablet 3-15 00:00: 00 11-25 00:00 :00 No [id number] TAKE 1 TABLET DAILY [facility] proMETHazin e 25 mg tablet 2019-10 2-14 00:00: 00 02-28 00:00 :00 No [id number] 25mg Take 1 tablet by mouth every 4 (four) hours as needed for Nausea and Vomiting (N/V). [facility] LOSARTAN 25 mg tablet 2019-10 00:00: 00 08-26 00:00 :00 No [id number] TAKE 1 TABLET DAILY (DISCONTIN UE LISINOPRIL ) [facility] ciprofloxac in HCl 500 mg tablet 2019-10 00:00: 00 02-28 00:00 :00 No [id number] 500mg Take 1 tablet by mouth every 12 (twelve) hours. [facility] SITagliptin 100 mg tablet 2019-10 00:00: 00 11-16 00:00 :00 No [id number] 100mg Take 1 tablet by mouth daily. [facility] ROSUVASTATI N 10 mg tablet 12-13 00:00: 00 06-23 00:00 :00 No [id number] TAKE ONE (1) TABLET(S) BY MOUTH AT BEDTIME. [facility] VENLAFAXINE 75 mg tablet 2018-10 00:00: 00 11-12 00:00 :00 No [id number] TAKE 1 TABLET TWICE A DAY [facility] nitroglycer in 0.4 mg sublingual tablet 04-28 00:00: [address] 1 tablet under the tongue every 5 (five) minutes as needed for Chest pain. [facility] OMEPRAZOLE 20 mg capsule 03-02 00:00: 00 Yes TAKE 1 CAPSULE DAILY [facility] Immunizations Ordered Immunization Name Filled Immunization Name Date Status Comments Source Pneumococcal Conjugate 15 (Vaxneuvance) 2023-01-08 00:00:00 Completed Alejandra Leonard External Pneumococcal Conjugate 15 (Vaxneuvance) 2023-01-08 00:00:00 Completed Alejandra Leonard External Pneumococcal Conjugate 15 (Vaxneuvance) 2023-01-08 00:00:00 Completed Alejandra Dc Shingles IM (Shingrix) 2022-12-19 00:00:00 Completed Alejandra Seybold - External Covid-19 Vaccine (Pfizer), Mrna-lnp, Merritt Protein, Pf, 30mcg/0.3ml,IM 2022-12-19 00:00:00 Completed Alejandra Reynosoold - External Shingles IM (Shingrix) 2022-12-19 00:00:00 Completed Alejandra Vanceybold - External Covid-19 Vaccine (Pfizer), Mrna-lnp, Merritt Protein, Pf, 30mcg/0.3ml,IM 2022-12-19 00:00:00 Completed Alejandra Reynosoold - External Shingles IM (Shingrix) 2022-12-19 00:00:00 Completed Alejandra Vanceybold - External Covid-19 Vaccine (Pfizer), Mrna-lnp, Merritt Protein, Pf, 30mcg/0.3ml,IM 2022-12-19 00:00:00 Completed Alejnadra Piper - External Lab Evidence Of Immunity - Varicella 2022-11-17 00:00:00 Completed Alejandra Piper - External Lab Evidence Of Immunity - Hepatitis B 2022-11-17 00:00:00 Completed Alejandra Reynosoold - External MMR- Measles, Mumps, Rubella 2022-11-17 00:00:00 Completed Alejandra Piper - External Lab Evidence Of Immunity - Varicella 2022-11-17 00:00:00 Completed Alejandra Piper - External Lab Evidence Of Immunity - Hepatitis B 2022-11-17 00:00:00 Completed Alejandra Piper - External MMR- Measles, Mumps, Rubella 2022-11-17 00:00:00 Completed Alejandra Piper - External Lab Evidence Of Immunity - Varicella 2022-11-17 00:00:00 Completed Alejandra Piper - External Lab Evidence Of Immunity - Hepatitis B 2022-11-17 00:00:00 Completed Alejandra Piper - External MMR- Measles, Mumps, Rubella 2022-11-17 00:00:00 Completed Alejandra Piper - External PPD-Protein Derivative (Purified)- Tuberculin 2022-11-14 00:00:00 Completed Alejandra Piper - External PPD-Protein Derivative (Purified)- Tuberculin 2022-11-14 00:00:00 Completed Alejandra Piper - External PPD-Protein Derivative (Purified)- Tuberculin 2022-11-14 00:00:00 Completed Alejandra Piper - External TDAP 2022-11-13 00:00:00 Completed [facility] MMR Booster 2022-11-13 00:00:00 Completed [facility] Pneumococcal Polysaccharide, PPSV23 (PNEUMOVAX) 2022-11-13 00:00:00 Completed [facility] Influenza Virus Vaccine 2022-11-13 00:00:00 Completed [facility] SARS-COV-2 COVID-19 SHANNAN/J&J VACCINE 2022-11-13 00:00:00 Completed [facility] Influenza Virus Vaccine Quad IM, Preserv and ABX Free 6 MO-64 YRS (FLUCELVAX) 2022-11-13 00:00:00 Completed [facility] Influenza Virus Vaccine Quad IM, Preserv and ABX Free 6 MO-64 YRS 2022-07-18 00:00:00 Completed [facility] Influenza Virus Vaccine Quad IM, Preserv and ABX Free 6 MO-64 YRS 2022-07-18 00:00:00 Completed [facility] Influenza Virus Vaccine Quad IM, Preserv and ABX Free 6 MO-64 YRS 2022-07-18 00:00:00 Completed [facility] Influenza Virus Vaccine Quad IM, Preserv and ABX Free 6 MO-64 YRS 2022-07-18 00:00:00 Completed [facility] Influenza Virus Vaccine Quad IM, Preserv and ABX Free 6 MO-64 YRS 2022-07-18 00:00:00 Completed [facility] Influenza Virus Vaccine Quad IM, Preserv and ABX Free 6 MO-64 YRS 2022-07-18 00:00:00 Completed [facility] Influenza, Injectable, Mdck, Preservative Free, Quadrivalt 2022-07-18 00:00:00 Completed Alejandra Leonard External Influenza, Injectable, Mdck, Preservative Free, Quadrivalt 2022-07-18 00:00:00 Completed Alejandra Leonard External Influenza, Injectable, Mdck, Preservative Free, Quadrivalt 2022-07-18 00:00:00 Completed Alejandra Piper - External TDAP 2021-09-27 00:00:00 Completed [facility] MMR Booster 2021-09-27 00:00:00 Completed [facility] Pneumococcal Polysaccharide, PPSV23 (PNEUMOVAX) 2021-09-27 00:00:00 Completed [facility] Influenza Virus Vaccine 2021-09-27 00:00:00 Completed [facility] SARS-COV-2 COVID-19 SHANNAN/J&J VACCINE 2021-09-27 00:00:00 Completed [facility] SARS-COV-2 COVID-19 SHANNAN/J&J VACCINE 2021-01-19 00:00:00 Completed [facility] SARS-COV-2 COVID-19 SHANNAN/J&J VACCINE 2021-01-19 00:00:00 Completed [facility] SARS-COV-2 COVID-19 SHANNAN/J&J VACCINE 2021-01-19 00:00:00 Completed [facility] SARS-COV-2 COVID-19 SHANNAN/J&J VACCINE 2021-01-19 00:00:00 Completed [facility] SARS-COV-2 COVID-19 SHANNAN/J&J VACCINE 2021-01-19 00:00:00 Completed [facility] SARS-COV-2 COVID-19 SHANNAN/J&J VACCINE 2021-01-19 00:00:00 Completed [facility] SARS-COV-2 COVID-19 SHANNAN/J&J VACCINE 2021-01-19 00:00:00 Completed [facility] SARS-COV-2 COVID-19 SHANNAN/J&J VACCINE 2021-01-19 00:00:00 Completed [facility] SARS-COV-2 COVID-19 SHANNAN/J&J VACCINE 2021-01-19 00:00:00 Completed [facility] SARS-COV-2 COVID-19 SHANNAN/J&J VACCINE 2021-01-19 00:00:00 Completed [facility] SARS-COV-2 COVID-19 SHANNAN/J&J VACCINE 2021-01-19 00:00:00 Completed [facility] SARS-COV-2 COVID-19 SHANNAN/J&J VACCINE 2021-01-19 00:00:00 Completed [facility] SARS-COV-2 COVID-19 SHANNAN/J&J VACCINE 2021-01-19 00:00:00 Completed [facility] SARS-COV-2 COVID-19 SHANNAN/J&J VACCINE 2021-01-19 00:00:00 Completed [facility] SARS-COV-2 COVID-19 SHANNAN/J&J VACCINE 2021-01-19 00:00:00 Completed [facility] SARS-COV-2 COVID-19 SHANNAN/J&J VACCINE 2021-01-19 00:00:00 Completed [facility] SARS-COV-2 COVID-19 SHANNAN/J&J VACCINE 2021-01-19 00:00:00 Completed [facility] SARS-COV-2 COVID-19 SHANNAN/J&J VACCINE 2021-01-19 00:00:00 Completed [facility] SARS-COV-2 COVID-19 SHANNAN/J&J VACCINE 2021-01-19 00:00:00 Completed [facility] SARS-COV-2 COVID-19 SHANNAN/J&J VACCINE 2021-01-19 00:00:00 Completed [facility] SARS-COV-2 COVID-19 SHANNAN/J&J VACCINE 2021-01-19 00:00:00 Completed [facility] SARS-COV-2 COVID-19 SHANNAN/J&J VACCINE 2021-01-19 00:00:00 Completed [facility] SARS-COV-2 COVID-19 SHANNAN/J&J VACCINE 2021-01-19 00:00:00 Completed [facility] SARS-COV-2 COVID-19 SHANNAN/J&J VACCINE 2021-01-19 00:00:00 Completed [facility] SARS-COV-2 COVID-19 SHANNAN/J&J VACCINE 2021-01-19 00:00:00 Completed [facility] SARS-COV-2 COVID-19 SHANNAN/J&J VACCINE 2021-01-19 00:00:00 Completed [facility] SARS-COV-2 COVID-19 SHANNAN/J&J VACCINE 2021-01-19 00:00:00 Completed [facility] SARS-COV-2 COVID-19 SHANNAN/J&J VACCINE 2021-01-19 00:00:00 Completed [facility] SARS-COV-2 COVID-19 SHANNAN/J&J VACCINE 2021-01-19 00:00:00 Completed [facility] TDAP 2021-01-17 00:00:00 Completed [facility] MMR Booster 2021-01-17 00:00:00 Completed [facility] Pneumococcal Polysaccharide, PPSV23 (PNEUMOVAX) 2021-01-17 00:00:00 Completed [facility] Influenza Virus Vaccine 2021-01-17 00:00:00 Completed [facility] TDAP 2020-10-17 00:00:00 Completed [facility] MMR Booster 2020-10-17 00:00:00 Completed [facility] Pneumococcal Polysaccharide, PPSV23 (PNEUMOVAX) 2020-10-17 00:00:00 Completed [facility] Influenza Virus Vaccine 2020-10-17 00:00:00 Completed [facility] Influenza Virus Vaccine 2020-08-09 00:00:00 Completed [facility] Influenza Virus Vaccine 2020-08-09 00:00:00 Completed [facility] Influenza Virus Vaccine 2020-08-09 00:00:00 Completed [facility] Influenza Virus Vaccine 2020-08-09 00:00:00 Completed [facility] Influenza Virus Vaccine 2020-08-09 00:00:00 Completed [facility] Influenza Virus Vaccine 2020-08-09 00:00:00 Completed [facility] Influenza Virus Vaccine 2020-08-09 00:00:00 Completed [facility] Influenza Virus Vaccine 2020-08-09 00:00:00 Completed [facility] Influenza Virus Vaccine 2020-08-09 00:00:00 Completed [facility] Influenza Virus Vaccine 2020-08-09 00:00:00 Completed [facility] Influenza Virus Vaccine 2020-08-09 00:00:00 Completed [facility] Influenza Virus Vaccine 2020-08-09 00:00:00 Completed [facility] Influenza Virus Vaccine 2020-08-09 00:00:00 Completed [facility] Influenza Virus Vaccine 2020-08-09 00:00:00 Completed [facility] Influenza Virus Vaccine 2020-08-09 00:00:00 Completed [facility] Influenza Virus Vaccine 2020-08-09 00:00:00 Completed [facility] Influenza Virus Vaccine 2020-08-09 00:00:00 Completed [facility] Influenza Virus Vaccine 2020-08-09 00:00:00 Completed [facility] Influenza Virus Vaccine 2020-08-09 00:00:00 Completed [facility] Influenza Virus Vaccine 2020-08-09 00:00:00 Completed [facility] Influenza Virus Vaccine 2020-08-09 00:00:00 Completed [facility] Influenza Virus Vaccine 2020-08-09 00:00:00 Completed [facility] Influenza Virus Vaccine 2020-08-09 00:00:00 Completed [facility] Influenza Virus Vaccine 2020-08-09 00:00:00 Completed [facility] Influenza Virus Vaccine 2020-08-09 00:00:00 Completed [facility] Influenza Virus Vaccine 2020-08-09 00:00:00 Completed [facility] Influenza Virus Vaccine 2020-08-09 00:00:00 Completed [facility] Influenza Virus Vaccine 2020-08-09 00:00:00 Completed [facility] Influenza Virus Vaccine 2020-08-09 00:00:00 Completed [facility] Influenza Virus Vaccine, Unspecified Formulation 2020-08-09 00:00:00 Completed Alejandra Seybold - External Influenza Virus Vaccine, Unspecified Formulation 2020-08-09 00:00:00 Completed Alejandra Seybold - External Influenza Virus Vaccine, Unspecified Formulation 2020-08-09 00:00:00 Completed Alejandra Seybold - External Influenza Virus Vaccine 2017-12-15 00:00:00 Completed [facility] Influenza Virus Vaccine 2017-12-15 00:00:00 Completed [facility] Influenza Virus Vaccine 2017-12-15 00:00:00 Completed [facility] Influenza Virus Vaccine 2017-12-15 00:00:00 Completed [facility] Influenza Virus Vaccine 2017-12-15 00:00:00 Completed [facility] Influenza Virus Vaccine 2017-12-15 00:00:00 Completed [facility] Influenza Virus Vaccine 2017-12-15 00:00:00 Completed [facility] Influenza Virus Vaccine 2017-12-15 00:00:00 Completed [facility] Influenza Virus Vaccine 2017-12-15 00:00:00 Completed [facility] Influenza Virus Vaccine 2017-12-15 00:00:00 Completed [facility] Influenza Virus Vaccine 2017-12-15 00:00:00 Completed [facility] Influenza Virus Vaccine 2017-12-15 00:00:00 Completed [facility] Influenza Virus Vaccine 2017-12-15 00:00:00 Completed [facility] Influenza Virus Vaccine 2017-12-15 00:00:00 Completed [facility] Influenza Virus Vaccine 2017-12-15 00:00:00 Completed [facility] Influenza Virus Vaccine 2017-12-15 00:00:00 Completed [facility] Influenza Virus Vaccine 2017-12-15 00:00:00 Completed [facility] Influenza Virus Vaccine 2017-12-15 00:00:00 Completed [facility] Influenza Virus Vaccine 2017-12-15 00:00:00 Completed [facility] Influenza Virus Vaccine 2017-12-15 00:00:00 Completed [facility] Influenza Virus Vaccine 2017-12-15 00:00:00 Completed [facility] Influenza Virus Vaccine 2017-12-15 00:00:00 Completed [facility] Influenza Virus Vaccine 2017-12-15 00:00:00 Completed [facility] Influenza Virus Vaccine 2017-12-15 00:00:00 Completed [facility] Influenza Virus Vaccine 2017-12-15 00:00:00 Completed [facility] Influenza Virus Vaccine 2017-12-15 00:00:00 Completed [facility] Influenza Virus Vaccine 2017-12-15 00:00:00 Completed [facility] Influenza Virus Vaccine 2017-12-15 00:00:00 Completed [facility] Influenza Virus Vaccine 2017-12-15 00:00:00 Completed [facility] Influenza Virus Vaccine 2017-12-15 00:00:00 Completed [facility] Influenza Virus Vaccine, Unspecified Formulation 2017-12-15 00:00:00 Completed Alejandra Piper - External Influenza Virus Vaccine, Unspecified Formulation 2017-12-15 00:00:00 Completed Alejandra Piper - External Influenza Virus Vaccine, Unspecified Formulation 2017-12-15 00:00:00 Completed Alejandra Piper - External Pneumococcal Polysaccharide, PPSV23 (PNEUMOVAX) 2017-08-06 00:00:00 Completed [facility] Pneumococcal Polysaccharide, PPSV23 (PNEUMOVAX) 2017-08-06 00:00:00 Completed [facility] Pneumococcal Polysaccharide, PPSV23 (PNEUMOVAX) 2017-08-06 00:00:00 Completed [facility] Pneumococcal Polysaccharide, PPSV23 (PNEUMOVAX) 2017-08-06 00:00:00 Completed [facility] Pneumococcal Polysaccharide, PPSV23 (PNEUMOVAX) 2017-08-06 00:00:00 Completed [facility] Pneumococcal Polysaccharide, PPSV23 (PNEUMOVAX) 2017-08-06 00:00:00 Completed [facility] Pneumococcal Polysaccharide, PPSV23 (PNEUMOVAX) 2017-08-06 00:00:00 Completed [facility] Pneumococcal Polysaccharide, PPSV23 (PNEUMOVAX) 2017-08-06 00:00:00 Completed [facility] Pneumococcal Polysaccharide, PPSV23 (PNEUMOVAX) 2017-08-06 00:00:00 Completed [facility] Pneumococcal Polysaccharide, PPSV23 (PNEUMOVAX) 2017-08-06 00:00:00 Completed [facility] Pneumococcal Polysaccharide, PPSV23 (PNEUMOVAX) 2017-08-06 00:00:00 Completed [facility] Pneumococcal Polysaccharide, PPSV23 (PNEUMOVAX) 2017-08-06 00:00:00 Completed [facility] Pneumococcal Polysaccharide, PPSV23 (PNEUMOVAX) 2017-08-06 00:00:00 Completed [facility] Pneumococcal Polysaccharide, PPSV23 (PNEUMOVAX) 2017-08-06 00:00:00 Completed [facility] Pneumococcal Polysaccharide, PPSV23 (PNEUMOVAX) 2017-08-06 00:00:00 Completed [facility] Pneumococcal Polysaccharide, PPSV23 (PNEUMOVAX) 2017-08-06 00:00:00 Completed [facility] Pneumococcal Polysaccharide, PPSV23 (PNEUMOVAX) 2017-08-06 00:00:00 Completed [facility] Pneumococcal Polysaccharide, PPSV23 (PNEUMOVAX) 2017-08-06 00:00:00 Completed [facility] Pneumococcal Polysaccharide, PPSV23 (PNEUMOVAX) 2017-08-06 00:00:00 Completed [facility] Pneumococcal Polysaccharide, PPSV23 (PNEUMOVAX) 2017-08-06 00:00:00 Completed [facility] Pneumococcal Polysaccharide, PPSV23 (PNEUMOVAX) 2017-08-06 00:00:00 Completed [facility] Pneumococcal Polysaccharide, PPSV23 (PNEUMOVAX) 2017-08-06 00:00:00 Completed [facility] Pneumococcal Polysaccharide, PPSV23 (PNEUMOVAX) 2017-08-06 00:00:00 Completed [facility] Pneumococcal Polysaccharide, PPSV23 (PNEUMOVAX) 2017-08-06 00:00:00 Completed [facility] Pneumococcal Polysaccharide, PPSV23 (PNEUMOVAX) 2017-08-06 00:00:00 Completed [facility] Pneumococcal Polysaccharide, PPSV23 (PNEUMOVAX) 2017-08-06 00:00:00 Completed [facility] Pneumococcal Polysaccharide, PPSV23 (PNEUMOVAX) 2017-08-06 00:00:00 Completed [facility] Pneumococcal Polysaccharide, PPSV23 (PNEUMOVAX) 2017-08-06 00:00:00 Completed [facility] Pneumococcal Polysaccharide, PPSV23 (PNEUMOVAX) 2017-08-06 00:00:00 Completed [facility] Pneumococcal Polysaccharide, PPSV23 (PNEUMOVAX) 2017-08-06 00:00:00 Completed Pneumococcal Vaccine, Polysaccharide 2017-08-06 00:00:00 Completed Alejandra Piper - External Pneumococcal Vaccine, Polysaccharide 2017-08-06 00:00:00 Completed Alejandra Piper - External Pneumococcal Vaccine, Polysaccharide 2017-08-06 00:00:00 Completed Alejandra Piper - External MMR Booster 2017-03-10 00:00:00 Completed [facility] MMR Booster 2017-03-10 00:00:00 Completed [facility] MMR Booster 2017-03-10 00:00:00 Completed [facility] MMR Booster 2017-03-10 00:00:00 Completed [facility] MMR Booster 2017-03-10 00:00:00 Completed [facility] MMR Booster 2017-03-10 00:00:00 Completed [facility] MMR Booster 2017-03-10 00:00:00 Completed [facility] MMR Booster 2017-03-10 00:00:00 Completed [facility] MMR Booster 2017-03-10 00:00:00 Completed [facility] MMR Booster 2017-03-10 00:00:00 Completed [facility] MMR Booster 2017-03-10 00:00:00 Completed [facility] MMR Booster 2017-03-10 00:00:00 Completed [facility] MMR Booster 2017-03-10 00:00:00 Completed [facility] MMR Booster 2017-03-10 00:00:00 Completed [facility] MMR Booster 2017-03-10 00:00:00 Completed [facility] MMR Booster 2017-03-10 00:00:00 Completed [facility] MMR Booster 2017-03-10 00:00:00 Completed [facility] MMR Booster 2017-03-10 00:00:00 Completed [facility] MMR Booster 2017-03-10 00:00:00 Completed [facility] MMR Booster 2017-03-10 00:00:00 Completed [facility] MMR Booster 2017-03-10 00:00:00 Completed [facility] MMR Booster 2017-03-10 00:00:00 Completed [facility] MMR Booster 2017-03-10 00:00:00 Completed [facility] MMR Booster 2017-03-10 00:00:00 Completed [facility] MMR Booster 2017-03-10 00:00:00 Completed [facility] MMR Booster 2017-03-10 00:00:00 Completed [facility] MMR Booster 2017-03-10 00:00:00 Completed [facility] MMR Booster 2017-03-10 00:00:00 Completed [facility] MMR Booster 2017-03-10 00:00:00 Completed [facility] MMR Booster 2017-03-10 00:00:00 Completed [facility] MMR- Measles, Mumps, Rubella 2017-03-10 00:00:00 Completed Alejandra Vanceybold - External MMR- Measles, Mumps, Rubella 2017-03-10 00:00:00 Completed Alejandra Seybold - External MMR- Measles, Mumps, Rubella 2017-03-10 00:00:00 Completed Alejandra Seybold - External TDAP 2015-06-12 00:00:00 Completed [facility] TDAP 2015-06-12 00:00:00 Completed [facility] TDAP 2015-06-12 00:00:00 Completed [facility] TDAP 2015-06-12 00:00:00 Completed [facility] TDAP 2015-06-12 00:00:00 Completed [facility] TDAP 2015-06-12 00:00:00 Completed [facility] TDAP 2015-06-12 00:00:00 Completed [facility] TDAP 2015-06-12 00:00:00 Completed [facility] TDAP 2015-06-12 00:00:00 Completed [facility] TDAP 2015-06-12 00:00:00 Completed [facility] TDAP 2015-06-12 00:00:00 Completed [facility] TDAP 2015-06-12 00:00:00 Completed [facility] TDAP 2015-06-12 00:00:00 Completed [facility] TDAP 2015-06-12 00:00:00 Completed [facility] TDAP 2015-06-12 00:00:00 Completed [facility] TDAP 2015-06-12 00:00:00 Completed [facility] TDAP 2015-06-12 00:00:00 Completed [facility] TDAP 2015-06-12 00:00:00 Completed [facility] TDAP 2015-06-12 00:00:00 Completed [facility] TDAP 2015-06-12 00:00:00 Completed [facility] TDAP 2015-06-12 00:00:00 Completed [facility] TDAP 2015-06-12 00:00:00 Completed [facility] TDAP 2015-06-12 00:00:00 Completed [facility] TDAP 2015-06-12 00:00:00 Completed [facility] TDAP 2015-06-12 00:00:00 Completed [facility] TDAP 2015-06-12 00:00:00 Completed [facility] TDAP 2015-06-12 00:00:00 Completed [facility] TDAP 2015-06-12 00:00:00 Completed [facility] TDAP 2015-06-12 00:00:00 Completed [facility] TDAP 2015-06-12 00:00:00 Completed [facility] Tdap- (Boostrix, Adacel) 2015-06-12 00:00:00 Completed [facility] External Tdap- (Boostrix, Adacel) 2015-06-12 00:00:00 Completed [facility] - External Tdap- (Boostrix, Adacel) 2015-06-12 00:00:00 Completed [facility] Influenza, Injectable, Mdck, Preservative Free, Quadrivalent Unknown Completed [facility] External Tdap- (Boostrix, Adacel) Unknown Completed [facility] External Pneumococcal Vaccine, Polysaccharide Unknown Completed [facility] External MMR- Measles, Mumps, Rubella Unknown Completed [facility] Influenza Virus Vaccine, Unspecified Formulation Unknown Completed [facility] External PPD-Protein Derivative (Purified)- Tuberculin Unknown Completed [facility] Lab Evidence Of Immunity - Varicella Unknown Completed [facility] Lab Evidence Of Immunity - Hepatitis B Unknown Completed [facility] External MMR- Measles, Mumps, Rubella Unknown Completed [facility] Shingles IM (Shingrix) Unknown Completed [facility] Covid-19 Vaccine ([employer]), Mrna-lnp, Merritt Protein, Pf, 30mcg/0.3ml,IM Unknown Completed [facility] Pneumococcal Conjugate 15 (Vaxneuvance) Unknown Completed [facility] Covid-19 Vaccine ([employer]) Unknown Completed [facility] COVID-19 VACCINE PFIZER 12+ (Silvestre cap) Unknown Completed [facility] Influenza, Injectable, Mdck, Quadrivalent With Preservative Unknown Completed [facility] Influenza, Injectable, Mdck, Preservative Free, Quadrivalent Unknown Completed [facility] External Tdap- (Boostrix, Adacel) Unknown Completed [facility] Pneumococcal Vaccine, Polysaccharide Unknown Completed [facility] External MMR- Measles, Mumps, Rubella Unknown Completed [facility] Influenza Virus Vaccine, Unspecified Formulation Unknown Completed [facility] External PPD-Protein Derivative (Purified)- Tuberculin Unknown Completed [facility] External Lab Evidence Of Immunity - Varicella Unknown Completed [facility] Lab Evidence Of Immunity - Hepatitis B Unknown Completed [facility] External MMR- Measles, Mumps, Rubella Unknown Completed [facility] Shingles IM (Shingrix) Unknown Completed [facility] Covid-19 Vaccine ([facility]), Mrna-lnp, Merritt Protein, Pf, 30mcg/0.3ml,IM Unknown Completed [facility] - External Pneumococcal Conjugate 15 (Vaxneuvance) Unknown Completed [facility] Covid-19 Vaccine (Shannan) Unknown Completed [facility] COVID-[address] [facility] 12+ (Silvestre cap) Unknown Completed [facility] Influenza, Injectable, Mdck, Quadrivalent With Preservative Unknown Completed [facility] Influenza, Injectable, Mdck, Preservative Free, Quadrivalent Unknown Completed [facility] Tdap- (Boostrix, Adacel) Unknown Completed [facility] Pneumococcal Vaccine, Polysaccharide Unknown Completed [facility] MMR- Measles, Mumps, Rubella Unknown Completed [facility] Influenza Virus Vaccine, Unspecified Formulation Unknown Completed [facility] PPD-Protein Derivative (Purified)- Tuberculin Unknown Completed [facility] Lab Evidence Of Immunity - Varicella Unknown Completed [facility] Lab Evidence Of Immunity - Hepatitis B Unknown Completed [facility] MMR- Measles, Mumps, Rubella Unknown Completed [facility] Shingles IM (Shingrix) Unknown Completed [facility] Covid-19 Vaccine ([facility]), Mrna-lnp, Merritt Protein, Pf, 30mcg/0.3ml,IM Unknown Completed [facility] - External Pneumococcal Conjugate 15 (Vaxneuvance) Unknown Completed [facility] Covid-19 Vaccine ([employer]) Unknown Completed [facility] External COVID-[address] [facility] 12+ (Silvestre cap) Unknown Completed [facility] External Influenza, Injectable, Mdck, Quadrivalent With Preservative Unknown Completed [facility] Influenza, Injectable, Mdck, Preservative Free, Quadrivalent Unknown Completed [facility] External Tdap- (Boostrix, Adacel) Unknown Completed [facility] Pneumococcal Vaccine, Polysaccharide Unknown Completed [facility] External MMR- Measles, Mumps, Rubella Unknown Completed [facility] Influenza Virus Vaccine, Unspecified Formulation Unknown Completed [facility] PPD-Protein Derivative (Purified)- Tuberculin Unknown Completed [facility] Lab Evidence Of Immunity - Varicella Unknown Completed [facility] Lab Evidence Of Immunity - Hepatitis B Unknown Completed [facility] MMR- Measles, Mumps, Rubella Unknown Completed [facility] Shingles IM (Shingrix) Unknown Completed [facility] Covid-19 Vaccine ([employer]), Mrna-lnp, Merritt Protein, Pf, 30mcg/0.3ml,IM Unknown Completed [facility] Pneumococcal Conjugate 15 (Vaxneuvance) Unknown Completed [facility] Covid-19 Vaccine ([employer]) Unknown Completed [facility] COVID-19 VACCINE PFIZER 12+ (Silvestre cap) Unknown Completed [facility] Influenza, Injectable, Mdck, Quadrivalent With Preservative Unknown Completed [facility] FLUCELVAX TRIVALENT PF Unknown Completed [facility] Influenza, Injectable, Mdck, Preservative Free, Quadrivalent Unknown Completed [facility] Tdap- (Boostrix, Adacel) Unknown Completed [facility] Pneumococcal Vaccine, Polysaccharide Unknown Completed [facility] MMR- Measles, Mumps, Rubella Unknown Completed [facility] Influenza Virus Vaccine, Unspecified Formulation Unknown Completed [facility] PPD-Protein Derivative (Purified)- Tuberculin Unknown Completed [facility] Lab Evidence Of Immunity - Varicella Unknown Completed [facility] Lab Evidence Of Immunity - Hepatitis B Unknown Completed [facility] MMR- Measles, Mumps, Rubella Unknown Completed [facility] Shingles IM (Shingrix) Unknown Completed [facility] Covid-19 Vaccine ([employer]), Mrna-lnp, Merritt Protein, Pf, 30mcg/0.3ml,IM Unknown Completed [facility] External Pneumococcal Conjugate 15 (Vaxneuvance) Unknown Completed [facility] - External Covid-19 Vaccine ([employer]) Unknown Completed [facility] - External COVID-19 VACCINE PFIZER 12+ (Silvestre cap) Unknown Completed [facility] - External Influenza, Injectable, Mdck, Quadrivalent With Preservative Unknown Completed [facility] - External FLUCELVAX TRIVALENT PF Unknown Completed [facility] - External AFLURIA TRIVALENT MDV Unknown Completed [facility] - External Influenza, Injectable, Mdck, Preservative Free, Quadrivalent Unknown Completed [facility] External Tdap- (Boostrix, Adacel) Unknown Completed [facility] External Pneumococcal Vaccine, Polysaccharide Unknown Completed [facility] - External MMR- Measles, Mumps, Rubella Unknown Completed [facility] - External Influenza Virus Vaccine, Unspecified Formulation Unknown Completed [facility] - External PPD-Protein Derivative (Purified)- Tuberculin Unknown Completed [facility] External Lab Evidence Of Immunity - Varicella Unknown Completed [facility] - External Lab Evidence Of Immunity - Hepatitis B Unknown Completed [facility] - External MMR- Measles, Mumps, Rubella Unknown Completed [facility] - External Shingles IM (Shingrix) Unknown Completed [facility] - External Covid-19 Vaccine ([employer]), Mrna-lnp, Merritt Protein, Pf, 30mcg/0.3ml,IM Unknown Completed [facility] - External Pneumococcal Conjugate 15 (Vaxneuvance) Unknown Completed [facility] - External Covid-19 Vaccine ([employer]) Unknown Completed [facility] - External COVID-19 VACCINE PFIZER 12+ (Silvestre cap) Unknown Completed [facility] - External Influenza, Injectable, Mdck, Quadrivalent With Preservative Unknown Completed [facility] - External FLUCELVAX TRIVALENT PF Unknown Completed [facility] - External AFLURIA TRIVALENT MDV Unknown Completed [facility] - External Vital Signs Vital Name Observation Time Observation Value Comments S elida Systolic blood pressure 2025-01-13 20:54:00 104 mm[Hg] Alejandra [facility] ld - External Diastolic blood pressure 2025-01-13 20:54:00 62 mm[Hg] Alejandra [employer]ance[employer] ld - External Heart rate 2025-01-13 20:54:00 77 /min Markyse y Seybold - External Body temperature 2025-01-13 20:54:00 36.39 Sandhya Alejandra Seybold - External Respiratory rate 2025-01-13 20:54:00 14 /min Alejandra Seybold - External Body height 2025-01-13 20:54:00 160 cm Ivy ey Seybold - External Body weight 2025-01-13 20:54:00 75.388 kg Ivy ey Seybold - External BMI 2025-01-13 20:54:00 29.44 kg/m2 Ivy ey Seybold - External Oxygen saturation in Arterial blood by Pulse oximetry 2025-01-13 20:54:00 96 /min Alejandra Seybo ld - External Systolic blood pressure 2024-07-01 12:56:00 108 mm[Hg] Alejandra Seybo ld - External Diastolic blood pressure 2024-07-01 12:56:00 88 mm[Hg] Alejandra Seybo ld - External Heart rate 2024-07-01 12:56:00 70 /min Markyse y Seybold - External Body temperature 2024-07-01 12:56:00 36.22 Sandhya Alejandra Seybold - External Respiratory rate 2024-07-01 12:56:00 15 /min Alejandra Seybold - External Body height 2024-07-01 12:56:00 160 cm Ivy ey Seybold - External Body weight 2024-07-01 12:56:00 77.111 kg Ivy ey Seybold - External BMI 2024-07-01 12:56:00 30.11 kg/m2 Ivy ey Seybold - External Systolic blood pressure 2024-05-06 19:46:00 102 mm[Hg] Alejandra Seybo ld - External Diastolic blood pressure 2024-05-06 19:46:00 72 mm[Hg] Alejandra Seybo ld - External Heart rate 2024-05-06 19:46:00 84 /min Kelse y Seybold - External Body temperature 2024-05-06 19:46:00 36.44 Sandhya Alejandra Seybold - External Respiratory rate 2024-05-06 19:46:00 14 /min Alejandra Seybold - External Body height 2024-05-06 19:46:00 160 cm Ivy ey Seybold - External Body weight 2024-05-06 19:46:00 78.654 kg Iyv ey Seybold - External BMI 2024-05-06 19:46:00 30.72 kg/m2 Ivy ey Seybold - External Systolic blood pressure 2024-01-01 13:02:00 110 mm[Hg] Alejandra Seybo ld - External Diastolic blood pressure 2024-01-01 13:02:00 68 mm[Hg] Alejandra Seybo ld - External Heart rate 2024-01-01 13:02:00 74 /min Kelse y Seybold - External Body temperature 2024-01-01 13:02:00 36.83 Sandhya Alejandra Seybold - External Respiratory rate 2024-01-01 13:02:00 16 /min Alejandra Seybold - External Body height 2024-01-01 13:02:00 160 cm Ivy ey Seybold - External Body weight 2024-01-01 13:02:00 84.596 kg Ivy ey Seybold - External BMI 2024-01-01 13:02:00 33.04 kg/m2 Ivy ey Seybold - External Oxygen saturation in Arterial blood by Pulse oximetry 2024-01-01 13:02:00 97 /min Alejandra Seybo ld - External Systolic blood pressure 2023-08-05 15:47:00 128 mm[Hg] Alejandra Seybo ld - External Diastolic blood pressure 2023-08-05 15:47:00 70 mm[Hg] Alejandra Seybo ld - External Heart rate 2023-08-05 15:47:00 89 /min Markyse y Seybold - External Body temperature 2023-08-05 15:47:00 35.83 Sandhya Alejandra Seybold - External Respiratory rate 2023-08-05 15:47:00 14 /min Alejandra Seybold - External Body height 2023-08-05 15:47:00 160 cm Ivy ey Seybold - External Body weight 2023-08-05 15:47:00 90.719 kg Ivy ey Seybold - External BMI 2023-08-05 15:47:00 35.43 kg/m2 Ivy ey Seybold - External Systolic blood pressure 2023-04-22 18:34:00 139 mm[Hg] Alejandra Seybo ld - External Diastolic blood pressure 2023-04-22 18:34:00 80 mm[Hg] Alejandra Seybo ld - External Heart rate 2023-04-22 18:34:00 69 /min Kelse y Seybold - External Body temperature 2023-04-22 18:34:00 36.5 Sandhya Alejandra Seybold - External Respiratory rate 2023-04-22 18:34:00 16 /min Alejandra Seybold - External Body height 2023-04-22 18:34:00 160 cm Ivy ey Seybold - External Body weight 2023-04-22 18:34:00 90.357 kg Ivy ey Seybold - External BMI 2023-04-22 18:34:00 35.29 kg/m2 Ivy ey Seybold - External Oxygen saturation in Arterial blood by Pulse oximetry 2023-04-22 18:34:00 97 /min Alejandra Seybo ld - External Systolic blood pressure 2023-01-08 15:37:00 130 mm[Hg] Alejandra Seybo ld - External Diastolic blood pressure 2023-01-08 15:37:00 85 mm[Hg] Alejandra Seybo ld - External Heart rate 2023-01-08 15:37:00 74 /min Markyse y Seybold - External Body temperature 2023-01-08 15:37:00 36.06 Sandhya Alejandra Seybold - External Respiratory rate 2023-01-08 15:37:00 18 /min Alejandra Seybold - External Body height 2023-01-08 15:37:00 160 cm Ivy ey Seybold - External Body weight 2023-01-08 15:37:00 90.538 kg Ivy ey Seybold - External BMI 2023-01-08 15:37:00 35.36 kg/m2 Ivy ey Seybold - External Oxygen saturation in Arterial blood by Pulse oximetry 2023-01-08 15:37:00 99 /min Alejandra Vanceybo ld - External Systolic blood pressure 2022-07-31 15:16:00 113 mm[Hg] [facility] Diastolic blood pressure 2022-07-31 15:16:00 71 mm[Hg] [facility] Heart rate 2022-07-31 15:15:00 87 /min [facility] Body temperature 2022-07-31 15:15:00 36.94 Sandhya [facility] Body height 2022-07-31 15:15:00 160 cm [facility] Body weight 2022-07-31 15:15:00 88.406 kg [facility] BMI 2022-07-31 15:15:00 34.52 kg/m2 [facility] Oxygen saturation in Arterial blood by Pulse oximetry 2022-07-31 15:15:00 98 /min [facility] Systolic blood pressure 2022-07-11 14:26:00 115 mm[Hg] [facility] Diastolic blood pressure 2022-07-11 14:26:00 72 mm[Hg] [facility] Heart rate 2022-07-11 14:26:00 68 /min [facility] Body temperature 2022-07-11 14:26:00 37.22 Sandhya [facility] Body height 2022-07-11 14:26:00 160 cm [facility] Body weight 2022-07-11 14:26:00 85.276 kg [facility] BMI 2022-07-11 14:26:00 33.30 kg/m2 [facility] Oxygen saturation in Arterial blood by Pulse oximetry 2022-07-11 14:26:00 99 /min [facility] Systolic blood pressure 2022-07-04 14:07:00 127 mm[Hg] [facility] Diastolic blood pressure 2022-07-04 14:07:00 79 mm[Hg] [facility] Heart rate 2022-07-04 14:07:00 78 /min [facility] Body temperature 2022-07-04 14:07:00 37.39 Sandhya [facility] Respiratory rate 2022-07-04 14:07:00 18 /min [facility] Body height 2022-07-04 14:07:00 160 cm [facility] Body weight 2022-07-04 14:07:00 85.775 kg [facility] BMI 2022-07-04 14:07:00 33.50 kg/m2 [facility] Oxygen saturation in Arterial blood by Pulse oximetry 2022-07-04 14:07:00 100 /min [facility] Systolic blood pressure 2022-06-30 21:40:00 143 mm[Hg] [facility] Diastolic blood pressure 2022-06-30 21:40:00 87 mm[Hg] [facility] Heart rate 2022-06-30 21:39:00 68 /min [facility] Body temperature 2022-06-30 21:39:00 37.22 Sandhya [facility] Respiratory rate 2022-06-30 21:39:00 12 /min [facility] Body height 2022-06-30 21:39:00 160 cm [facility] Body weight 2022-06-30 21:39:00 86.501 kg [facility] BMI 2022-06-30 21:39:00 33.78 kg/m2 [facility] Oxygen saturation in Arterial blood by Pulse oximetry 2022-06-30 21:39:00 99 /min [facility] Body weight 2022-06-16 18:10:00 84.233 kg [facility] BMI 2022-06-16 18:10:00 32.90 kg/m2 [facility] Oxygen saturation in Arterial blood by Pulse oximetry 2022-06-16 18:10:00 99 /min [facility] Systolic blood pressure 2022-06-16 18:10:00 125 mm[Hg] [facility] Diastolic blood pressure 2022-06-16 18:10:00 81 mm[Hg] [facility] Heart rate 2022-06-16 18:10:00 73 /min [facility] Body temperature 2022-06-16 18:10:00 37.5 Sandhya [facility] Respiratory rate 2022-06-16 18:10:00 18 /min [facility] Body height 2022-06-16 18:10:00 160 cm [facility] Procedures Procedure Date / Time Performed Performing Clinicia n Source CONSENT/REFUSAL FOR DIAGNOSIS AND TREATMENT 2022-07-11 14:24:31 Doctor Unassigned, [place] [facility] XR CHEST 2 VW 2022-06-30 22:03:00 Maricel Gallagher [facility] POCT SARS-COV-2 ANTIGEN (BINAX NOW) 2022-06-20 14:52:00 Ajay Padilla [facility] POCT SARS-COV-2 ANTIGEN (BINAX NOW) 2022-06-16 18:12:00 Maricel Gallagher [facility] ASSIGNMENT OF BENEFITS 2022-05-20 15:44:33 Docto r Unassigned, [place] [facility] Encounters Start Date/Time End Date/Time Encounter Type Admission Type Attending [facility] Facility Care Department Encounter ID Source 2021-08-12 02:31:07 Outpatient DADA RIOS [facility] [id number] [facility] 2021-08-10 10:57:44 Emergency [facility] [id number] [facility] 2025-02-16 16:30:00 2025-02-16 16:30:00 Outpatient DEEPA HUFFMAN [id number] [facility] 2025-02-10 14:20:00 2025-02-10 14:20:00 Outpatient ALEJANDRA KEARNEY [id number] [facility] 2025-02-06 08:00:00 2025-02-06 08:00:00 Outpatient KATARINA BYNUM [id number] [facility] 2025-01-30 00:00:00 2025-01-30 00:00:00 Outpatient DEEPA HUFFMAN [id number] [facility] 2025-01-27 14:20:00 2025-01-27 14:20:00 Outpatient ALEJANDRA KEARNEY [id number] [facility] 2025-01-27 14:00:00 2025-01-27 14:00:00 Outpatient ALEJANDRA KEARNEY [id number] [facility] 2025-01-20 00:00:00 2025-01-20 00:00:00 Outpatient HUNDL, DEEPA ALEJANDRA KEARNEY [id number] Alej[facility] 2025-01-20 00:00:00 2025-01-20 00:00:00 Outpatient HUNDL, DEEPA ALEJANDRA KEARNEY [id number] [facility] 2025-01-20 00:00:00 2025-01-20 00:00:00 Outpatient PREZAS, OSMANI ALEJANDRA KEARNEY [id number] [facility] 2025-01-13 16:10:00 2025-01-13 16:10:00 Outpatient LAB90 ALEJANDRA KEARNEY [id number] [facility] 2025-01-13 16:00:00 2025-01-13 16:00:00 Outpatient HUNDL, DEEPA A[facility]ANDRA KEARNEY [id number] [facility] 2025-01-07 00:00:00 2025-01-07 00:00:00 Outpatient HUNDL, DEEPA ALEJANDRA KEARNEY [id number] Ale[facility]andra [facility] 2025-01-04 00:00:00 2025-01-04 00:00:00 Outpatient HUNDL, DEEPA KEARNEY [id number] [facility] 2024-12-30 08:00:00 2024-12-30 08:00:00 Outpatient HUNDL, DEEPA ALEJANDRA KEARNEY [id number] [facility] 2024-12-28 00:00:00 2024-12-28 00:00:00 Outpatient PREZAS, OSMANI ALEJANDRA KEARNEY [id number] Ale[facility] 2024-12-26 00:00:00 2024-12-26 00:00:00 Outpatient HUNDL, DEEPA KEARNEY [id number] [facility] 2024-12-26 00:00:00 2024-12-26 00:00:00 Outpatient HUNDL, DEEPA KEARNEY [id number] [facility] 2024-12-04 00:00:00 2024-12-04 00:00:00 Outpatient HUNDL, DEEPA KEARNEY [id number] [facility] 2024-11-29 00:00:00 2024-11-29 00:00:00 Outpatient HUNDL, DEEPA ALEJANDRA KEARNEY [id number] [facility] 2018-10-18 00:00:00 2024-11-26 03:12:42 Orders Only Azeb Chou [facility] 1.2.840.114 350.1.13.10 4.2.7.2.686 [id number] [facility] 2024-11-04 00:00:00 2024-11-04 00:00:00 Outpatient HUNDJASSON FonsecaParis KEARNEY [id number] [facility] 2024-10-26 00:00:00 2024-10-26 00:00:00 Outpatient NATHANAEL DEEPA KEARNEY [id number] [facility] 2024-10-25 00:00:00 2024-10-25 00:00:00 Outpatient NATHANAEL DEEPA KEARNEY [id number] [facility] 2024-10-19 00:00:00 2024-10-19 00:00:00 Outpatient NATHANAEL DEEPA KEARNEY [id number] [facility] 2024-10-19 00:00:00 2024-10-19 00:00:00 Outpatient NATHANAEL DEEPA KEARNEY [id number] Alejadnra [facility] 2024-10-19 00:00:00 2024-10-19 00:00:00 Outpatient ALEJANDRA KEARNEY [id number] [facility] 2024-10-06 00:00:00 2024-10-06 00:00:00 Outpatient MATT OSMANI KEARNEY [id number] [facility] 2024-10-06 00:00:00 2024-10-06 00:00:00 Outpatient OSMANI GUTIERREZ [id number] [facility] 2024-09-26 00:00:00 2024-09-26 00:00:00 Outpatient MOISESMargarito DEEPA KEARNEY [id number] [facility] 2024-07-26 00:00:00 2024-07-26 00:00:00 Outpatient DEEPA HUFFMAN ALEJANDRA KEARNEY [id number] [facility] 2024-07-15 11:20:00 2024-07-15 11:20:00 Outpatient ALEJANDRA KEARNEY [id number] [facility] 2024-07-15 10:40:00 2024-07-15 10:40:00 Outpatient VITO BRAND ALEJANDRA KEARNEY [id number] [facility] 2024-07-05 00:00:00 2024-07-05 00:00:00 Outpatient NATHANAEL DEEPA ALEJANDRA KEARNEY [id number] Alejandra Sey[facility] 2024-07-01 08:00:00 2024-07-01 08:00:00 Outpatient NATHANAEL DEEPA KEARNEY [id number] [facility] 2024-06-21 12:00:00 2024-06-21 12:00:00 Outpatient LAB90 ALEJANDRA KEARNEY [id number] Alejandra [facility] 2024-06-10 12:00:00 2024-06-10 12:00:00 Outpatient ALEJANDRA KEARNEY [id number] [facility] 2024-06-10 09:20:00 2024-06-10 09:20:00 Outpatient ALEJANDRA KEARNEY [id number] [facility] 2024-06-10 09:00:00 2024-06-10 09:00:00 Outpatient JESS ORR [id number] [facility] 2024-05-27 00:00:00 2024-05-27 00:00:00 Outpatient NATHANAEL DEEPA KEARNEY [id number] [facility] 2024-05-11 00:00:00 2024-05-11 00:00:00 Outpatient MOISESMargarito DEEPA KEARNEY [id number] [facility] 2024-05-10 00:00:00 2024-05-10 00:00:00 Outpatient MOISESMargarito DEEPA KEARNEY [id number] [facility] 2024-05-06 15:50:00 2024-05-06 15:50:00 Outpatient LAB90 ALEJANDRA KEARNEY [id number] [facility]andra [facility] 2024-05-06 15:00:00 2024-05-06 15:00:00 Outpatient HUNDL, DEEPA ALEJANDRA KEARNEY [id number] [facility] 2024-05-06 09:30:00 2024-05-06 09:30:00 Outpatient ALEJANDRA KEARNEY [id number] [facility] 2024-05-02 00:00:00 2024-05-02 00:00:00 Outpatient HUNDL, DEEPA ALEJANDRA KEARNEY [id number] [facility] 2024-05-02 00:00:00 2024-05-02 00:00:00 Outpatient HUNDL, DEEPA ALEJANDRA KEARNEY [id number] [facility] 2024-04-06 12:15:00 2024-04-06 12:15:00 Outpatient LAB90 ALEJANDRA KEARNEY [id number] [facility] 2024-04-04 00:00:00 2024-04-04 00:00:00 Outpatient HUNDL, DEEPA A[facility]ANDRA [facility]NEY [id number] [facility] 2024-03-21 00:00:00 2024-03-21 00:00:00 Outpatient HUNDL, DEEPA ALEJANDRA KEARNEY [id number] [facility] 2024-03-08 08:40:00 2024-03-08 08:40:00 Outpatient LAB90 ALEJANDRA KEARNEY [id number] [facility] 2024-03-03 00:00:00 2024-03-03 00:00:00 Outpatient HUNDL, DEEPA KEARNEY [id number] [facility] 2024-02-09 00:00:00 2024-02-09 00:00:00 Outpatient KATARINA BYNUM [id number] [facility] 2024-02-08 00:00:00 2024-02-08 00:00:00 Outpatient KATARINA BYNUM [id number] [facility] 2024-01-04 00:00:00 2024-01-04 00:00:00 Outpatient HUNDL, DEEPA KEARNEY [id number] [facility] 2024-01-01 09:00:00 2024-01-01 09:00:00 Outpatient HUNDL, DEEPA KEARNEY [id number] [facility] 2024-01-01 08:40:00 2024-01-01 08:40:00 Outpatient LAB90 ALEJANDRA KEARNEY [id number] [facility]jandra [facility] 2023-12-08 00:00:00 2023-12-08 00:00:00 Outpatient FELI MORAN ALEJANDRA KEARNEY [id number] [facility] 2023-12-07 11:00:00 2023-12-07 11:00:00 Outpatient HUNDL, DEEPA ALEJANDRA KEARNEY [id number] Alejandra [facility] 2023-11-23 00:00:00 2023-11-23 00:00:00 Outpatient HUNDL, DEEPA ALEJANDRA KEARNEY [id number] [facility] 2023-11-19 00:00:00 2023-11-19 00:00:00 Outpatient HUNDL, DEEPA KEARNEY [id number] [facility] 2023-11-16 00:00:00 2023-11-16 00:00:00 Outpatient HUNDL, DEEPA KEARNEY [id number] Ale[facility] 2023-11-12 00:00:00 2023-11-12 00:00:00 Outpatient HUNDL, DEEPA ALEJANDRA KEARNEY [id number] Alejandra Sey[facility] 2023-11-12 00:00:00 2023-11-12 00:00:00 Outpatient HUNDL, DEEPA ALEJANDRA KEARNEY [id number] Alejandra Sey[facility] 2023-11-11 14:05:00 2023-11-11 14:05:00 Outpatient LAB90 ALEJANDRA KEARNEY [id number] Alejandra [facility] 2023-11-11 00:00:00 2023-11-11 00:00:00 Outpatient HUNDL, DEEPA KEARNEY [id number] [facility] 2023-11-04 00:00:00 2023-11-04 00:00:00 Outpatient HUNDL, DEEPA KEARNEY [id number] Alejandra [facility] 2023-10-24 00:00:00 2023-10-24 00:00:00 Outpatient OSMANI GUTIERREZ [id number] [facility] 2023-10-23 00:00:00 2023-10-23 00:00:00 Outpatient PREOSMANI TINEO ALEJANDRA KEARNEY [id number] [facility] 2023-10-15 00:00:00 2023-10-15 00:00:00 Outpatient PRERIVKA OSMANI ALEJANDRA KEARNEY [id number] [facility] 2023-10-14 00:00:00 2023-10-14 00:00:00 Outpatient HUNDL, DEEPA KEARNEY [id number] [facility] 2023-10-10 00:00:00 2023-10-10 00:00:00 Outpatient HUNDL, DEEPA KEARNEY [id number] [facility] 2023-10-09 11:25:00 2023-10-09 11:25:00 Outpatient LAB90 ALEJANDRA KEARNEY [id number] [facility] 2023-10-05 00:00:00 2023-10-05 00:00:00 Outpatient NATHANAEL, DEEPA KEARNEY [id number] [facility] 2023-09-28 00:00:00 2023-09-28 00:00:00 Outpatient MATEO GAMBOA [id number] [facility] 2023-09-23 00:00:00 2023-09-23 00:00:00 Outpatient HUNDL, DEEPA KEARNEY [id number] [facility] 2023-09-09 00:00:00 2023-09-09 00:00:00 Outpatient NATHANAEL, DEEPA KEARNEY [id number] [facility] 2023-09-07 14:10:00 2023-09-07 14:10:00 Outpatient LAB90 ALEJANDRA KEARNEY [id number] [facility] 2023-09-06 00:00:00 2023-09-06 00:00:00 Outpatient NATHANAEL, DEEPA KEARNEY [id number] Alejandra [facility] 2023-09-03 00:00:00 2023-09-03 00:00:00 Outpatient NATHANAEL, DEEPA KEARNEY [id number] [facility] 2023-08-28 00:00:00 2023-08-28 00:00:00 Outpatient ALEXFELI SANDERS ALEJANDRA KEARNEY [id number] [facility] 2023-08-26 00:00:00 2023-08-26 00:00:00 Outpatient OSMANI GUTIERREZ ALEJANDRA KEARNEY [id number] [facility] 2023-08-24 09:30:00 2023-08-24 09:30:00 Outpatient COOPER MATEO ALEJANRDA KEARNEY [id number] [facility] 2023-08-24 09:15:00 2023-08-24 09:15:00 Outpatient GregANNALISE ALEJANDRA KEARNEY [id number] [facility] 2023-08-09 00:00:00 2023-08-09 00:00:00 Outpatient DEEPA HUFFMAN [id number] [facility] 2023-08-06 00:00:00 2023-08-06 00:00:00 Outpatient DEEPA HUFFMAN [id number] [facility] 2023-08-05 11:50:00 2023-08-05 11:50:00 Outpatient LAB90 ALEJANDRA KEARNEY [id number] [facility] 2023-08-05 11:00:00 2023-08-05 11:00:00 Outpatient DEEPA HUFFMAN [id number] [facility] 2023-07-30 00:00:00 2023-07-30 00:00:00 Outpatient MD ALEJANDRA IBARRA [id number] [facility] 2023-07-30 00:00:00 2023-07-30 00:00:00 Outpatient ALEXFELI SANDERS ALEJANDRA KEARNEY [id number] [facility] 2023-06-29 15:30:00 2023-06-29 15:30:00 Outpatient CARLA ARGUETA [id number] [facility] 2023-06-29 00:00:00 2023-06-29 00:00:00 Outpatient DEMARCUS COOK [id number] [facility] 2023-06-26 13:45:00 2023-06-26 13:45:00 Outpatient CARLA ARGUETA [id number] [facility] 2023-06-25 00:00:00 2023-06-25 00:00:00 Outpatient TANAS, FELI ALEJANDRA KEARNEY [id number] [facility] 2023-04-22 14:00:00 2023-04-22 14:00:00 Outpatient LJ ALEJANDRA KEARNEY [id number] [facility] 2023-04-22 13:30:00 2023-04-22 13:30:00 Outpatient TANAS, FELI ALEJANDRA KEARNEY [id number] [facility] 2023-04-19 00:00:00 2023-04-19 00:00:00 Outpatient TANAS, FELI KEARNEY [id number] [facility] 2023-04-10 00:00:00 2023-04-10 00:00:00 Outpatient MD ALEJANDRA IBARRA [id number] [facility] 2023-03-09 00:00:00 2023-03-09 00:00:00 Outpatient TANAS, FELI KEARNEY [id number] [facility] 2023-03-06 11:15:00 2023-03-06 11:15:00 Outpatient YURY Lau [id number] [facility] 2023-03-06 11:00:00 2023-03-06 11:00:00 Outpatient JESSICA HER [id number] [facility] 2023-02-27 00:00:00 2023-02-27 00:00:00 Outpatient MD ALEJANDRA IBARRA [id number] [facility] 2023-02-22 00:00:00 2023-02-22 00:00:00 Outpatient TANTOMMY, FELI KEARNEY [id number] [facility] 2023-01-28 00:00:00 2023-01-28 00:00:00 Outpatient TANAS, FELI KEARNEY [id number] [facility] 2023-01-09 00:00:00 2023-01-09 00:00:00 Outpatient TANAS, FELI KEARNEY [id number] [facility] 2023-01-08 11:30:00 2023-01-08 11:30:00 Outpatient LAB47 ALEJANDRA ALEJANDRA [id number] [facility]jandra [facility] 2023-01-08 10:45:00 2023-01-08 10:45:00 Outpatient FELI MORAN ALEJANDRA KEARNEY [id number] [facility] 2022-11-18 00:00:00 2022-11-18 00:00:00 Latrice Navarrete [facility] 1..840.114 350.1.13.10 4.2.7.2.686 [id number] [facility] 2022-11-17 08:45:00 2022-11-17 08:45:00 Outpatient INJ, EULALIA KEARNEY [id number] [facility] 2022-11-17 00:00:00 2022-11-17 00:00:00 Outpatient COOKDEMARCUS MONTENEGRO [id number] [facility] 2022-11-17 00:00:00 2022-11-17 00:00:00 Outpatient DEMARCUS COOK [id number] [facility] 2022-11-14 11:30:00 2022-11-14 11:30:00 Outpatient LAB47 ALEJANDRA KEARNEY [id number] [facility] 2022-11-14 10:45:00 2022-11-14 10:45:00 Outpatient INJ, EULALIA ALEJANDRA KEARNEY [id number] [facility]andra [facility] 2022-11-13 00:00:00 2022-11-13 00:00:00 Patient Secure Msg Doctor Unassigned, [place] [facility] 1.2.840.114 350.1.13.10 4.2.7.2.686 [id number] [facility] 2022-11-12 00:00:00 2022-11-12 00:00:00 Outpatient DEMARCUS COOK [id number] [facility] 2022-10-21 00:00:00 2022-10-21 00:00:00 Refill Jake Navarrete [facility] SIGRID GRIFFIN?[facility] 1.2.840.114 350.1.13.10 4.2.7.2.686 [id number] [facility] 2022-10-09 00:00:00 2022-10-09 00:00:00 Patient Secure Msg Doctor Unassigned, [place] [facility] GRIFFIN?[facility] 1.2.840.114 350.1.13.10 4.2.7.2.686 [id number] [facility] 2022-10-05 00:00:00 2022-10-05 00:00:00 Refill Doctor Unassigned, [place] [facility] 1.2.840.114 350.1.13.10 4.2.7.2.686 [id number] [facility] 2022-08-20 00:00:00 2022-08-20 00:00:00 Refill Landon Jake [facility] SIG[facility] GRIFFIN?[facility] 1.2.840.114 350.1.13.10 4.2.7.2.686 [id number] [facility] 2022-07-31 10:15:00 2022-07-31 10:30:00 Office Visit Jake Navarrete [facility]RIFFIN[facility] 1.2.840.114 350.1.13.10 4.2.7.2.686 [id number] [facility] 2022-07-31 10:15:00 2022-07-31 10:15:00 Outpatient R JAKE NAVARRETE [facility] [id number] [facility] 2022-07-11 09:47:28 2022-07-11 23:59:00 Outpatient LEEROY MONTES [facility] [id number] [facility] 2022-07-11 09:20:00 2022-07-11 12:22:52 [facility] 1.2.840.114 350.1.13.10 4.2.7.2.686 [id number] [facility] 2022-07-11 00:00:00 2022-07-11 00:00:00 Orders Only Doctor Unassigned, [place] [facility] 1.2.840.114 350.1.13.10 4.2.7.2.686 [id number] [facility] 2022-07-11 00:00:00 2022-07-11 00:00:00 [facility] (Out[facility] 1.2.840.114 350.1.13.10 4.2.7.2.686 [id number] [facility] 2022-07-11 00:00:00 2022-07-11 00:00:00 Patient Secure Msg [facility] 1.2.840.114 350.1.13.10 4.2.7.2.686 [id number] [facility] 2022-07-04 09:20:00 2022-07-04 09:40:00 [facility] 1.2.840.114 350.1.13.10 4.2.7.2.686 [id number] [facility] 2022-07-04 09:20:00 2022-07-04 09:20:00 Outpatient MERCEDES ARGUELLES [facility] [id number] [facility] 2022-06-30 16:50:26 2022-06-30 23:59:00 Outpatient MARICEL AGUIAR [facility] [id number] [facility] 2022-06-30 16:50:26 2022-06-30 23:59:00 Hospital Encounter [facility] 1.2.840.114 350.1.13.10 4.2.7.2.686 [id number] [facility] 2022-06-30 16:40:00 2022-06-30 17:00:00 Urgent Care Elliott [facility] 1.2.840.114 350.1.13.10 4.2.7.2.686 [id number] [facility] 2022-06-23 00:00:00 2022-06-23 00:00:00 Refill Doctor Unassigned, [place] [facility] 1.2.840.114 350.1.13.10 4.2.7.2.686 [id number] [facility] 2022-06-20 10:00:00 2022-06-20 10:15:00 Hoop Maker Machine Visit Only, Ang Db Xavier Dawn Root [facility] GABY?[facility] 1.2.840.114 350.1.13.10 4.2.7.2.686 [id number] [facility] 2022-06-20 10:00:00 2022-06-20 10:00:00 Outpatient R DAWN ROOT [facility] [id number] [facility] 2022-06-16 13:00:00 2022-06-16 13:20:00 Urgent Care Elliott [facility] GABY?[facility] 1.2.840.114 350.1.13.10 4.2.7.2.686 [id number] [facility] 2022-06-16 13:00:00 2022-06-16 13:00:00 Outpatient R MARICEL GALLAGHER [facility] [id number] [facility] 2022-06-11 00:00:00 2022-06-11 00:00:00 Letter (Out) China Rubiody [facility] 1.84.114 350.1.13.10 4.2.7.2.686 [id number] [facility] 2022-06-10 15:45:00 2022-06-10 16:04:44 Outpatient R DK DAWN [facility] [id number] [facility] 2022-06-10 15:45:00 2022-06-10 16:00:00 Laboratory Only Only, Ang Db Test Dk [facility] 1.84.114 350.1.13.10 4.2.7.2.686 [id number] [facility] 2022-05-20 15:15:00 2022-05-20 15:30:00 Laboratory Only Only, Adc Pob2 Test Landon Jake [facility] 1.84.114 350.1.13.10 4.2.7.2.686 [id number] [facility] 2022-05-20 15:15:00 2022-05-20 11:00:29 Outpatient R JAKE NAVARRETE [facility] [id number] [facility] 2022-05-20 00:00:00 2022-05-20 00:00:00 Orders Only Doctor Unassigned, [place] [facility] 1.114 350.1.13.10 4.2.7.2.686 [id number] [facility] 2022-04-14 00:00:00 2022-04-14 00:00:00 Refill Landon [facility] 1.840.114 350.1.13.10 4.2.7.2.686 [id number] [facility] 2022-02-28 00:00:00 2022-02-28 00:00:00 Refcarlton Navarrete [facility] GABY?[facility] 1.2840.114 350.1.13.10 4.2.7.2.686 [id number] [facility] 2022-02-28 00:00:00 2022-02-28 00:00:00 Thad Navarrete [facility] GABY?[facility] 1.2840.114 350.1.13.10 4.2.7.2.686 [id number] [facility] 2022-02-28 00:00:00 2022-02-28 00:00:00 Refill Landon [facility] GABY?[facility] 1.2840.114 350.1.13.10 4.2.7.2.686 [id number] [facility] 2022-01-16 15:00:00 2022-01-16 15:00:00 Outpatient R LANDON JAKE [facility] [id number] [facility] 2022-01-02 00:00:00 2022-01-02 00:00:00 Refill Landon [facility] GABY?[facility] 1.2840.114 350.1.13.10 4.2.7.2.686 [id number] [facility] 2021-11-28 00:00:00 2021-11-28 00:00:00 Refcarlton Navarrete [facility] GABY?[facility] 1.2840.114 350.1.13.10 4.2.7.2.686 [id number] [facility] 2021-11-24 00:00:00 2021-11-24 00:00:00 Dion Zamorano [facility] OFFICE BUILDING ONE .84.114 350.1.13.10 4.2.7.2.686 [id number] [facility] 2021-11-14 10:30:00 2021-11-14 10:30:00 [facility] [id number] [facility] 2021-11-14 10:30:00 2021-11-14 10:30:00 [employer] Visit Only, Ang Db Test Unknown, Attending Randy [facility] GABY?[facility] 1.840.114 350.1.13.10 4.2.7.2.686 [id number] [facility] 2021-11-11 09:30:00 2021-11-11 10:06:54 Laboratory Only Only, Adc Pob2 Test Valentin Tan [facility] BUILDING 1.840.114 350.1.13.10 4.2.7.2.686 [id number] [facility] 2021-11-11 09:30:00 2021-11-11 10:06:54 Outpatient VALENTIN BETTS [facility] [id number] [facility] 2021-11-11 09:30:00 2021-11-11 09:30:00 Outpatient VALENTIN BETTS [facility] [id number] [facility] 2021-11-01 00:00:00 2021-11-01 00:00:00 Hamilton Bray [facility] OFFICE BUILDING ONE 1.840.114 350.1.13.10 4.2.7.2.686 [id number] [facility] 2021-10-16 00:00:00 2021-10-16 00:00:00 Refill [facility] OFF[facility] BUILD[facility] ONE 1..840.114 350.1.13.10 4.2.7.2.686 [id number] [facility] 2021-09-27 07:30:00 2021-09-27 07:45:00 [employer] Visit Lab, Jake Hunt [facility] 1..840.114 350.1.13.10 4.2.7.2.686 [id number] [facility] 2021-09-27 07:30:00 2021-09-27 07:30:00 Outpatient JAKE RIGGS [facility] [id number] [facility] 2021-09-27 00:00:00 2021-09-27 00:00:00 Patient Secure Msg Doctor Unassigned, [place] [facility] 1.840.114 350.1.13.10 4.2.7.2.686 [id number] [facility] 2021-09-13 08:00:00 2021-09-13 08:00:00 Outpatient JAKE RIGGS [facility] [id number] [facility] 2021-09-04 14:52:46 2021-09-04 15:22:46 Office Visit Jake Navarrete [facility] 1..840.114 350.1.13.10 4.2.7.2.686 [id number] [facility] 2021-09-04 15:00:00 2021-09-04 15:00:00 Outpatient JAKE RIGGS [facility] [id number] [facility] 2021-08-25 00:00:00 2021-08-25 00:00:00 Refill Dion Dahl [facility]ESS[facility] NAL OFFICE BUILDING ONE 1.84.114 350.1.13.10 4.2.7.2.686 [id number] [id number] [facility] 2021-08-09 10:20:00 2021-08-09 10:35:32 Outpatient Adrianne GALLAGHER [facility] [id number] [facility] 2021-08-09 10:13:25 2021-08-09 10:35:32 Urgent Care Mercedes David Elliott [facility] GABY?JUANA [facility]IC[facility] BUILDING 1.84.114 350.1.13.10 4.2.7.2.686 [id number] [facility] 2021-08-09 00:00:00 2021-08-09 00:00:00 Telephone Rachel Love [facility] 1..114 350.1.13.10 4.2.7.2.686 [id number] [facility] 2021-06-07 09:36:12 2021-06-07 10:06:12 Office Visit Renee Bourgeois [facility] 1..114 350.1.13.10 4.2.7.2.686 [id number] [facility] 2021-06-07 10:00:00 2021-06-07 10:00:00 Outpatient RENEE PATTERSON [facility] [id number] [facility] 2021-06-07 00:00:00 2021-06-07 00:00:00 Orders Only Doctor Unassigned, [place] [facility] 1.2.114 350.1.13.10 4.2.7.2.686 [id number] [facility] 2021-05-10 08:00:00 2021-05-10 08:00:00 Outpatient HEBERT GALLO HOWARD [facility] [id number] [facility] 2021-05-03 00:00:00 2021-05-03 00:00:00 Latrice Navarrete [facility] Office Building One 1.840.114 350.1.13.10 4.2.7.2.686 [id number] [id number] [facility] 2021-04-22 00:00:00 2021-04-22 00:00:00 Latrice Navarrete Jake [facility] Office Building One 1.0.114 350.1.13.10 4.2.7.2.686 [id number] [facility] 2021-04-12 08:43:00 2021-04-12 11:44:00 Hospital Encounter Khalif Gilmorehif [facility] ([facility] 1.0.114 350.1.13.10 4.2.7.2.686 [id number] [facility] 2021-04-12 10:10:00 2021-04-12 10:55:00 Surgery Deirdre [facility] 1.840.114 350.1.13.10 4.2.7.2.686 [id number] [facility] 2021-04-12 00:00:00 2021-04-12 00:00:00 Orders Only Doctor Unassigned, [place] [facility] 1.840.114 350.1.13.10 4.2.7.2.686 [id number] [facility] 2021-03-13 15:15:00 2021-03-13 15:15:00 Outpatient JAKE RIGGS [facility] [id number] [facility] 2021-03-13 00:00:00 2021-03-13 00:00:00 Latrice Navarrete [facility] Office Building One 1.0.114 350.1.13.10 4.2.7.2.686 [id number] [id number] [facility] 2021-03-12 00:00:00 2021-03-12 00:00:00 Telephone Jake Navarrete [facility] Office Building One 1.0.114 350.1.13.10 4.2.7.2.686 [id number] [facility] 2021-03-06 00:00:00 2021-03-06 00:00:00 Refill Landon [facility] Office Building One 1.0.114 350.1.13.10 4.2.7.2.686 [id number] [facility] 2021-03-05 13:30:00 2021-03-05 13:30:00 Outpatient R MERCEDES DAVID [facility] [id number] [facility] 2021-02-28 09:55:04 2021-02-28 10:25:04 Office Visit Gallo Galan [facility] Office Building One 1..114 350.1.13.10 4.2.7.2.686 [id number] [facility] 2021-02-28 10:00:00 2021-02-28 10:00:00 Outpatient R GALLO GALAN [facility] [id number] [facility] 2021-02-27 00:00:00 2021-02-27 00:00:00 Telephone Landon [facility] Office Building One 1..114 350.1.13.10 4.2.7.2.686 [id number] [facility] 2021-02-26 10:40:00 2021-02-26 10:40:00 Outpatient R GALLO GALAN [facility] [id number] [facility] 2021-02-26 10:10:00 2021-02-26 10:10:00 Outpatient VALENTIN TAN [facility] [id number] [facility] 2021-02-26 08:30:36 2021-02-26 08:50:36 Laboratory Only Lab, [place] [facility] 1.114 350.1.13.10 4.2.7.2.686 [id number] [facility] 2021-02-13 00:00:00 2021-02-13 00:00:00 Orders Only Doctor Unassigned, [place] [facility] 1.0.114 350.1.13.10 4.2.7.2.686 [id number] [facility] 2021-01-17 00:00:00 2021-01-17 00:00:00 Patient Secure Msg Doctor Unassigned, [place] [facility] 1..114 350.1.13.10 4.2.7.2.686 [id number] [facility] 2021-01-16 00:00:00 2021-01-16 00:00:00 Telephone DiegoWicho wilder [facility] 1..114 350.1.13.10 4.2.7.2.686 [id number] [id number] [facility] 2021-01-11 07:53:31 2021-01-11 08:08:31 Hoop Maker Machine Visit Stephen, [place] [facility] 1..114 350.1.13.10 4.2.7.2.686 [id number] [facility] 2021-01-11 07:45:00 2021-01-11 07:45:00 Outpatient R RENEE BOURGEOIS [facility] [id number] [facility] 2021-01-07 06:54:49 2021-01-07 08:33:02 Hoop Maker Machine Visit Lab, [facility] 1..840.114 350.1.13.10 4.2.7.2.686 [id number] [id number] [facility] 2021-01-07 08:20:00 2021-01-07 08:20:00 Outpatient JAKE RIGGS [facility] [id number] [facility] 2020-12-31 08:20:00 2020-12-31 08:20:00 Outpatient Adrianne NAVARRETE [facility] [id number] [facility] 2020-12-28 08:00:00 2020-12-28 08:00:00 Outpatient R [facility] [id number] [facility] 2020-12-22 00:00:00 2020-12-22 00:00:00 Patient Outreach Valentin Tan [facility] 1..840.114 350.1.13.10 4.2.7.2.686 [id number] [facility] 2020-12-21 09:00:51 2020-12-21 10:35:49 [facility] 1..840.114 350.1.13.10 4.2.7.2.686 [id number] [facility] 2020-12-21 09:00:00 2020-12-21 09:00:00 Outpatient R CLARISSE BOURGEOISBETH [facility] [id number] [facility] 2020-12-21 00:00:00 2020-12-21 00:00:00 Dion Zamorano Jere [facility] Office Building One 1.114 350.1.13.10 4.2.7.2.686 [id number] [id number] [facility] 2020-12-21 00:00:00 2020-12-21 00:00:00 Orders Only Doctor Unassigned, [place] [facility] 1..114 350.1.13.10 4.2.7.2.686 [id number] [facility] 2020-11-22 15:15:00 2020-11-22 15:15:00 Outpatient JAKE RIGGS [facility] [id number] [facility] 2020-11-16 00:00:00 2020-11-16 00:00:00 Latrice Navarrete Jake [facility] Office Building One .114 350.1.13.10 4.2.7.2.686 [id number] [facility] 2020-11-11 00:00:00 2020-11-11 00:00:00 Latrice HumarockDion Jere [facility] Office Building One .114 350.1.13.10 4.2.7.2.686 [id number] [facility] 2020-10-26 11:00:00 2020-10-26 11:00:00 Outpatient R RENEE BOURGEOIS [facility] [id number] [facility] 2020-10-18 00:00:00 2020-10-18 00:00:00 MyaDion Avalos [facility] Office Building One .114 350.1.13.10 4.2.7.2.686 [id number] [facility] 2020-10-17 00:00:00 2020-10-17 00:00:00 Telephone Landon [facility] Office Building One 1.840.114 350.1.13.10 4.2.7.2.686 [id number] [id number] [facility] 2020-10-17 00:00:00 2020-10-17 00:00:00 Patient Secure Msg Doctor Unassigned, [place] [facility] 1.2840.114 350.1.13.10 4.2.7.2.686 [id number] [facility] 2020-10-09 00:00:00 2020-10-09 00:00:00 Telephone Landon [facility] Office Building One 1.840.114 350.1.13.10 4.2.7.2.686 [id number] [facility] 2020-09-27 19:30:00 2020-09-27 19:30:00 Outpatient GOMEZ GUSMAN STRAAZMargarito [facility] [id number] [facility] 2020-09-27 14:47:07 2020-09-27 17:17:07 Hoop Maker Machine Visit 1, [facility] Sleep Lab Bed Gomez Latham [facility] 1.840.114 350.1.13.10 4.2.7.2.686 [id number] [facility] 2020-09-27 00:00:00 2020-09-27 00:00:00 Orders Only Doctor Unassigned, [place] [facility] 1.2840.114 350.1.13.10 4.2.7.2.686 [id number] [facility] 2020-09-25 14:30:00 2020-09-25 14:30:00 Outpatient DERICK HUBBARD [facility] [id number] [facility] 2020-09-24 15:15:00 2020-09-24 15:15:00 Outpatient R JAKE NAVARRETE [facility] [id number] [facility] 2020-09-24 14:57:27 2020-09-24 15:12:27 Office Visit Jake Navarrete [facility] Office Building One 1.114 350.1.13.10 4.2.7.2.686 [id number] [id number] [facility] 2020-09-23 12:45:00 2020-09-23 15:23:00 Emergency Violette Jones [facility] 1.114 350.1.13.10 4.2.7.2.686 [id number] [facility] 2020-09-23 12:40:00 2020-09-23 12:40:00 Outpatient R DK DAWN [facility] [id number] [facility] 2020-09-23 12:13:16 2020-09-23 12:33:16 Urgent Care Provider, [facility] Care Dk [facility] Office Building One 1.114 350.1.13.10 4.2.7.2.686 [id number] [facility] 2020-09-23 00:00:00 2020-09-23 00:00:00 Orders Only Doctor Unassigned, [place] [facility] 1.114 350.1.13.10 4.2.7.2.686 [id number] [facility] 2020-09-18 00:00:00 2020-09-18 00:00:00 Dion Zamorano [facility] Office Building One 1.114 350.1.13.10 4.2.7.2.686 [id number] [facility] 2020-09-05 17:10:00 2020-09-05 23:59:00 Hospital Encounter Amaury Callaway [facility] 1..114 350.1.13.10 4.2.7.2.686 [id number] [facility] 2020-09-05 00:00:00 2020-09-05 00:00:00 Outpatient R CESIA AMAURY [facility] [id number] [facility] 2020-09-03 00:00:00 2020-09-03 00:00:00 [facility] One 1.114 350.1.13.10 4.2.7.2.686 [id number] [facility] 2020-08-31 16:11:46 2020-08-31 16:26:46 Hoop Maker Machine Visit Vls-Lab Cesia [facility] [place] [facility] 1..114 350.1.13.10 4.2.7.2.686 [id number] [facility] 2020-08-31 15:33:08 2020-08-31 16:14:07 Office Visit Cesia [facility] 1..114 350.1.13.10 4.2.7.2.686 [id number] [facility] 2020-08-31 15:30:00 2020-08-31 15:30:00 [facility] [id number] 2020-08-31 00:00:00 2020-08-31 00:00:00 Orders Only Doctor Unassigned, [place] [facility] .114 350.1.13.10 4.2.7.2.686 [id number] [facility] 2020-08-27 00:00:00 2020-08-27 00:00:00 Telephone [facility] Office Building One .114 350.1.13.10 4.2.7.2.686 [id number] [facility] 2020-08-21 15:40:00 2020-08-21 15:40:00 Outpatient R DION DAHL [facility] [id number] [facility] 2020-08-21 07:08:42 2020-08-21 08:54:21 Hoop Maker Machine Visit Lab, [facility] Fam Pob Armani BobbyDion miller Jere [facility] Office Building One 1.114 350.1.13.10 4.2.7.2.686 [id number] [id number] [facility] 2020-08-20 00:00:00 2020-08-20 00:00:00 Telephone Jake Navarrete [facility] Office Building One 1.114 350.1.13.10 4.2.7.2.686 [id number] [facility] 2020-08-15 15:39:23 2020-08-15 15:54:23 Office Visit Hamilton Lorenz [facility] Office Building One 1.114 350.1.13.10 4.2.7.2.686 [id number] [facility] 2020-08-15 15:45:00 2020-08-15 15:45:00 Outpatient R HAMILTON LORENZ [facility] [id number] [facility] 2020-08-14 17:31:12 2020-08-14 17:51:12 Laboratory Only Lab, [facility] Fam Pob Armani Root Dawn [facility] Office Building One 1.114 350.1.13.10 4.2.7.2.686 [id number] [facility] 2020-08-14 17:40:00 2020-08-14 17:40:00 Outpatient DAWN ERICKSON [facility] [id number] [facility] 2020-06-10 00:00:00 2020-06-10 00:00:00 Refill Jitendra Dahlluis fernandocoreen Oquendo [facility] Office Building One 1..114 350.1.13.10 4.2.7.2.686 [id number] [facility] 2020-05-28 10:43:51 2020-05-28 11:03:51 Laboratory Only Lab, Adc Fam Pob I Dianna Galanthia [facility] Office Building One 1..114 350.1.13.10 4.2.7.2.686 [id number] [facility] 2020-05-28 11:00:00 2020-05-28 11:00:00 Outpatient R GALLO GALAN [facility] [id number] [facility] 2020-04-17 00:00:00 2020-04-17 00:00:00 Refill Navarrete Jake [facility] Office Building One 1..114 350.1.13.10 4.2.7.2.686 [id number] [id number] [facility] 2020-04-12 00:00:00 2020-04-12 00:00:00 Refill Jitendra Dahlluis fernandocoreen Oquendo [facility] Building 1..114 350.1.13.10 4.2.7.2.686 [id number] [facility] 2020-01-31 00:00:00 2020-01-31 00:00:00 Refill Dion Dahl [facility] Office Building One 1..114 350.1.13.10 4.2.7.2.686 [id number] [id number] [facility] 2020-01-15 00:00:00 2020-01-15 00:00:00 Refill Landon Jake [facility] Office Building One 1.2.840.114 350.1.13.10 4.2.7.2.686 [id number] [id number] [facility] 2020-01-09 00:00:00 2020-01-09 00:00:00 Telephone Dion Dahl [facility] nal Building 1.2.840.114 350.1.13.10 4.2.7.2.686 [id number] [id number] [facility] 2020-01-04 00:00:00 2020-01-04 00:00:00 Telephone Jake Navarrete [facility] Office Building One 1.840.114 350.1.13.10 4.2.7.2.686 [id number] 044 [id number] [facility] 2020 00:00:00 2020 00:00:00 Refill Dion Dahl [facility] Office Building One 1.840.114 350.1.13.10 4.2.7.2.686 [id number] 044 [id number] [facility] 2019-12-14 00:00:00 2019-12-14 00:00:00 Refill Dion Dahl [facility] Office Building One 1.840.114 350.1.13.10 4.2.7.2.686 [id number] [facility] 2019-11-28 09:39:01 2019-11-28 10:26:21 Office Visit Angelia Gallo [facility] Office Building One 1.840.114 350.1.13.10 4.2.7.2.686 [id number] [facility] 2019-11-28 00:00:00 2019-11-28 00:00:00 Orders Only Doctor Unassigned, [place] [facility] 1.840.114 350.1.13.10 4.2.7.2.686 [id number] [facility] 2019-11-28 00:00:00 2019-11-28 00:00:00 Letter (Out) Gallo Galan [facility] Office Building One 1.2840.114 350.1.13.10 4.2.7.2.686 [id number] [id number] [facility] 2019-11-07 00:00:00 2019-11-07 00:00:00 Letter (Out) Jake Navarrete [facility] Office Building One 1.2840.114 350.1.13.10 4.2.7.2.686 [id number] [facility] 2019-10-27 00:00:00 2019-10-27 00:00:00 Dion Zamorano Jere [facility] Office Building One 1.2840.114 350.1.13.10 4.2.7.2.686 [id number] [facility] 2019-06-17 00:00:00 2019-06-17 00:00:00 Dion Zamorano [facility] Office Building One 1.2.840.114 350.1.13.10 4.2.7.2.686 [id number] 044 [id number] [facility] 2019-05-23 00:00:00 2019-05-23 00:00:00 Dion Nguyen Jere [facility] Office Building One 1.2840.114 350.1.13.10 4.2.7.2.686 [id number] [facility] 2018-10-19 00:00:00 2018-10-19 00:00:00 Outpatient DION QUIÑONES [facility] [id number] [facility] 2018-10-19 00:00:00 2018-10-19 00:00:00 Outpatient DION QUIÑONES [facility] [id number] [facility] 2018-10-19 00:00:00 2018-10-19 00:00:00 Outpatient DION QUIÑONES [facility] [id number] [facility] Results Test Description Test Time Test Comments Results Result Co mments Source [facility] (BINAX NOW)2022-06-16 18:12:00* Test Item Value Reference Range Interpretation Comme nts POCT SARS-COV-2 ANTIGEN (test code = 5076) Positive Not Detected A On board controls acceptable with C Line (test code = 3574) Yes KELBY (test code = KELBY) accurate developme nt and interpretation of all internal controls Lab Interpretation (test code = 97408-1) Abnormal [facility] Notes Date/Time Note Provider Source 2025-01-13 15:58:07 Chief Complaint Patient presents with Knee Pain Left leg and knee pain with bruising. Meg Grayson MA [facility] 2024-07-01 08:00:42 Chief Complaint Patient presents with Follow-up Follow up and Mounjaro refill Meg Grayson MA II [facility], [facility] 2024-05-06 14:51:40 Chief Complaint Patient presents with OTHER Discuss FMLA forms Meg Grayson MA II Meg Grayson MA, II AlejandraFeliz [facility] 2024-01-01 08:07:09 Chief Complaint Patient presents with Physical Fasting for labs Eugenia Rollins LVN [facility] 2023-04-22 13:36:39 Formatting of this n ote is different from the original. Chief Complaint Patient presents with Consultation Pt presents with "foggy head", hard to concentrate, fatigue and sweaty x 1 week Vitals: 04/22/23 1334 BP: 139/80 Pulse: 69 Resp: 16 Temp: 97.7 ?F (36.5 ?C) TempSrc: Tympanic SpO2: 97% Weight: 199 lb 3.2 oz (90.4 kg) Height: 5' 3" (1.6 m) PainSc: 0/10 [facility]
[2025-02-04 13:40] LABS: Absolute Basophils 0.1 K/uL (0-0.5); Absolute Eosinophils 0.1 K/uL (0-0.5); Absolute Lymphocytes (CBC) 3.7 K/uL (0.7-4.9); Absolute Monocytes 0.8 K/uL (0.1-1.3); Absolute Neutrophil 6.7 K/uL (1.8-8.0); Basophils % 0.5 % (0-1.3); Eosinophils % 0.9 % (0-4.4); Hematocrit 45.7 % (36.0-45.0); Hemoglobin 15.9 g/dL (12.0-15.0); Lymphocytes % 32.7 % (15.3-44.8); MCH 30.9 pg (27.0-35.0); MCHC 34.9 g/dL (32.0-36.0); MCV 88.5 fL (80-100); MPV 8.6 fL (7.6-11.3); Monocytes % 6.9 % (3.3-12.3); Nucleated Red Blood Cells % 0.1 % (0-0); Platelets 302 thou/uL (152-406); RBC Red Blood Cell Count 5.16 M/uL (3.86-4.86); Red Cell Distribution Width 13.9 % (12.1-15.2)
[2025-02-04 13:54] LABS: Influenza A Ag Negative; Influenza B Ag Negative; SARS-CoV-2 Antigen Rapid Res Negative (Negative)
[2025-02-04 13:56] LABS: ALT/SGPT 29 U/L (13-56); AST/SGOT 19 U/L (15-37); Albumin/Globulin Ratio 1.2 (1.1-1.8); Alkaline Phosphatase 113 U/L (45-117); Anion Gap 11.2 mEq/L (5.0-15.0); BUN Blood Urea Nitrogen 14 mg/dL (7-18); Bicarbonate 26 mEq/L (21-32); Bilirubin Direct < 0.2 mg/dL (0-0.2); Bilirubin Indirect, Calculated 0.2 mg/dL (0.2-0.8); Bilirubin Total 0.4 mg/dL (0.2-1.0); Globulin 3.4 g/dL (2.3-3.5); Glomerular Filtration Rate 72 ml/min (=/>90); Glucose Level 150 mg/dL (74-106); Magnesium 1.9 mg/dL (1.6-2.4); NT PRO-BNP 38 pg/mL (<125); Potassium 3.2 mEq/L (3.5-5.1); Protein, Total 7.4 g/dL (6.4-8.2); Sodium Level 136 mEq/L (136-145); Troponin High Sensitivity < 3.0 pg/mL (<58.9)
--- NOTE | 2025-02-04 14:30 | RAD REPORT ---
EXAM: Chest Single View HISTORY: 60 years Female DYSPNEA COMPARISON: 01/31/2018 FINDINGS: LUNGS/PLEURA: The lungs are clear. No pleural effusions or pneumothorax. No pulmonary edema. CARDIAC/MEDIASTINUM: The cardiac silhouette is within normal limits. UPPER ABDOMEN: No significant abnormality. BONES: No acute abnormality. LINES/TUBES/OTHER: N/A IMPRESSION: No evidence of acute cardiopulmonary disease. No significant change from prior.
[2025-02-04 14:39] LABS: PTT, Activated Partial Thromb 22.6 SECONDS (27.2-37.4); Protime INR 1.06
--- NOTE | 2025-02-04 14:59 | ER ---
Nurse's Notes [facility] Name: Lila Harry Age: 60 yrs Sex: Female : 1965 Arrival Date: 02/04/2025 Time: 12:57 Bed 3 Private MD: Diagnosis: Chest pain, unspecified;Dyspnea, unspecified Presentation: 02/04 12:59 Chief complaint: Patient states: Shortness of breath that has been off and on since ss yesterday. Also reports mild chest pressure this am. Coronavirus screen: Client denies travel out of the [place] in the last 14 days. Ebola Screen: Patient denies exposure to infectious person. Patient denies travel to an Ebola-affected area in the 21 days before illness onset. Initial Sepsis Screen: Does the patient meet any 2 criteria? No. Patient's initial sepsis screen is negative. Does the patient have a suspected source of infection? No. Patient's initial sepsis screen is negative. Risk Assessment: Do you want to hurt yourself or someone else? Patient reports no desire to harm self or others. Onset of symptoms was February 03, 2025. 12:59 Method Of Arrival: Wheelchair ss 12:59 Acuity: ANITA 3 ss Triage Assessment: 13:00 General: Appears in no apparent distress. comfortable, Behavior is calm, cooperative. cm10 Pain: Denies pain. Neuro: No deficits noted. Level of Consciousness is awake, alert, obeys commands, Oriented to person, place, time, situation, Appropriate for age. Cardiovascular: No deficits noted. Patient's skin is warm and dry. Respiratory: Reports shortness of breath Airway is patent Respiratory effort is even, unlabored, Respiratory pattern is regular, symmetrical, Breath sounds are clear bilaterally. Onset: The symptoms/episode began/occurred just prior to arrival, the patient reports symptoms have resolved. Historical: - Allergies: 13:00 Codeine (Upset stomach); cm10 13:00 Latex; cm10 13:00 Lisinopril; cm10 13:00 Sulfa (Sulfonamide Antibiotics); cm10 - PMHx: 13:00 Depression; Diabetes - NIDDM; GERD; Hypertension; cm10 - PSHx: 13:00 section; total Hysterectomy; cm10 - Immunization history:: Client reports having NOT received the Covid vaccine. - Infectious Disease History:: Denies. - Social history:: Smoking status: Patient denies any tobacco usage or history of. - Family history:: not pertinent. - Hospitalizations: : No recent hospitalization is reported. Screenin:15 [facility] ED Fall Risk Assessment (Adult) History of falling in the last 3 months, cm10 including since admission No falls in past 3 months (0 pts) Confusion or Disorientation No (0 pts) Intoxicated or Sedated No (0 pts) Impaired Gait No (0 pts) Mobility Assist Device Used No (0 pt) Altered Elimination No (0 pt) Score/Fall Risk Level 0 - 2 = Low Risk Oriented to surroundings, Maintained a safe environment, Hourly rounding (assess needs \T\ fall precautionary measures) done. Abuse screen: Denies threats or abuse. Denies injuries from another. Nutritional screening: No deficits noted. Tuberculosis screening: No symptoms or risk factors identified. Assessment: 14:16 Reassessment: Patient appears in no apparent distress at this time. No changes from cm10 previously documented assessment. Patient and/or family updated on plan of care and expected duration. Pain level reassessed. Patient is alert, oriented x 3, equal unlabored respirations, skin warm/dry/pink. Vital Signs: 12:59 BP 128 / 82; Pulse 77; Resp 18; Temp 97.8(TE); Pulse Ox 100% on R/A; Weight 72.57 kg; ss Height 5 ft. 3 in. ; Pain 0/10; 13:12 BP 135 / 99; Pulse 78; Resp 14; Pulse Ox 100% on R/A; cm10 14:02 BP 127 / 90; Pulse 78; Resp 19; Pulse Ox 100% on R/A; cm10 14:30 BP 130 / 65; Pulse 80; Resp 14; Pulse Ox 100% ; cm10 12:59 Body Mass Index 28.34 (72.57 kg, 160.02 cm) ss 12:59 Pain Scale: Adult ss ED Course: 12:59 Patient arrived in ED. im 12:59 Arm band placed on right wrist. ss 13:01 Theodore Moore MD is Attending Physician. rn 13:13 Missed attempt(s): 18 gauge in right forearm. Bleeding controlled, band aid applied, cm10 catheter tip intact. 13:14 Initial lab(s) drawn, by me, sent to lab. EKG done, by ED staff, reviewed by Theodore Moore MD. Inserted saline lock: 20 gauge in right antecubital area, using aseptic technique. Blood collected. Flushed with 10 mL NS. Patient maintains SpO2 saturation greater than 95% on room air. 13:15 EKG completed in triage. Results shown to MD. ss 13:15 Patient has correct armband on for positive identification. Placed in gown. Bed in low cm10 position. Call light in reach. Side rails up X2. Client placed on continuous cardiac and pulse oximetry monitoring. NIBP monitoring applied. farmworker grain on. 13:20 Triage completed. ss 14:15 Coretta Beckford, RN is Primary Nurse. cm10 14:18 XRAY CXR (1 view) In Process Unspecified. EDMS 15:15 No provider procedures requiring assistance completed. IV discontinued, intact, ss bleeding controlled, No redness/swelling at site. Pressure dressing applied. Administered Medications: No medications were administered Medication: 14:16 VIS not applicable for this client. cm10 Outcome: 14:58 Discharge ordered by . rn 15:15 Discharged to home ambulatory, with family, ss 15:15 Condition: good 15:15 Discharge instructions given to patient, family, Instructed on discharge instructions, follow up and referral plans. Demonstrated understanding of instructions, follow-up care, 15:16 Patient left the ED. ss Signatures: Dispatcher [employer] EDMS Theodore Moore MD MD rn Blanchard, Shelby, RN RN Hilary Sherwood Clarissa, RN RN brigdett
--- NOTE | 2025-02-04 14:59 | EDPHYS ---
Physician Documentation [facility] Name: Lila Harry Age: 60 yrs Sex: Female : 1965 Arrival Date: 02/04/2025 Time: 12:57 Bed 3 Private MD: ED Physician Theodore Moore HPI: 02/04 13:29 This 60 yrs old Female presents to ER via Wheelchair with complaints of Shortness Of rn Breath, Chest Tightness. 13:29 The patient has shortness of breath at rest. Onset: The symptoms/episode began/occurred rn yesterday. Duration: The symptoms are intermittent. The patient's shortness of breath is aggravated by nothing, is alleviated by nothing. Severity of symptoms: At their worst the symptoms were mild in the emergency department the symptoms are unchanged. The patient has not experienced similar symptoms in the past. Patient reports shortness of breath that began yesterday. Patient reports nasal congestion, mild cough, dyspnea and "temperature dysregulation". Denies any chronic lung or heart issues. No hemoptysis. No trauma. Patient reports feels dizzy and lightheaded.. Historical: - Allergies: 13:00 Codeine (Upset stomach); cm10 13:00 Latex; cm10 13:00 Lisinopril; cm10 13:00 Sulfa (Sulfonamide Antibiotics); cm10 - PMHx: 13:00 Depression; Diabetes - NIDDM; GERD; Hypertension; cm10 - PSHx: 13:00 section; total Hysterectomy; cm10 - Immunization history:: Client reports having NOT received the Covid vaccine. - Infectious Disease History:: Denies. - Social history:: Smoking status: Patient denies any tobacco usage or history of. - Family history:: not pertinent. - Hospitalizations: : No recent hospitalization is reported. ROS: 13:29 Constitutional: Positive for chills Cardiovascular: Positive for chest tightness rn Respiratory: Positive for cough and shortness of breath Abdomen/GI: Positive for nausea MS/Extremity: Negative for injury and deformity, Skin: Negative for injury, rash, and discoloration, Neuro: Positive for generalized weakness and malaise Exam: 13:29 Constitutional: This is a well developed, well nourished patient who is awake, alert, rn and in no acute distress. Cardiovascular: Regular rate and rhythm with a normal S1 and S2. No gallops, murmurs . No JVD. No pulse deficits. Respiratory: Clear bilateral breath sounds. No retractions or tachypnea Abdomen/GI: Soft, non-tender MS/ Extremity: Pulses equal, no cyanosis. Neuro: Awake and alert, GCS 15 13:50 ECG was reviewed by the Attending Physician. rn Vital Signs: 12:59 BP 128 / 82; Pulse 77; Resp 18; Temp 97.8(TE); Pulse Ox 100% on R/A; Weight 72.57 kg; ss Height 5 ft. 3 in. ; Pain 0/10; 13:12 BP 135 / 99; Pulse 78; Resp 14; Pulse Ox 100% on R/A; cm10 14:02 BP 127 / 90; Pulse 78; Resp 19; Pulse Ox 100% on R/A; cm10 14:30 BP 130 / 65; Pulse 80; Resp 14; Pulse Ox 100% ; cm10 12:59 Body Mass Index 28.34 (72.57 kg, 160.02 cm) ss 12:59 Pain Scale: Adult ss MDM: 13:01 Medical Screening Exam initiated rn 14:55 Differential diagnosis: Anemia Anxiety Reaction Myocardial Infarction pneumonia, rn Pneumothorax pulmonary edema. Data reviewed: vital signs, nurses notes, lab test result(s), EKG, radiologic studies, plain films, and as a result, I will admit patient. Consideration of Admission/Observation Escalation of care including admission/observation considered. Counseling: I had a detailed discussion with the patient and/or guardian regarding the historical points, exam findings, and any diagnostic results supporting the discharge/admit diagnosis, lab results, radiology results, the need for further work-up and treatment in the hospital. Response to treatment: the patient's symptoms have resolved after treatment, the patient's condition has returned to base line, the patient is now symptom free, and as a result, I will admit patient. Refusal of service: The patient/guardian displays adequate decision making capability and despite a detailed discussion of alternatives, benefits, risks, and consequences refuses: Admission to the hospital for further work-up and treatment. Special discussion:. ED course: I recommended admission to the hospital given unclear etiology and chest discomfort in the setting of dyspnea and dizziness. Troponin negative and ECG without ischemia but recommend admission for cardiology consultation, echo, possible stress test. Patient states that she wishes to go home, understands risks of going home without further evaluation and understands that this could be cardiac in nature and even progressed to heart attack and/or . Patient states she has an appointment on Thursday with her PCP. Told patient if symptoms worsen or return once she goes home needs to return immediately for further evaluation and admission. Patient agrees.. 02/04 13:12 Order name: BMP; Complete Time: 14:35 02/04 13:12 Order name: Blood Culture Adult (2) rn 02/04 13:12 Order name: CBC with Diff; Complete Time: 13:45 rn 02/04 13:12 Order name: Hepatic Function; Complete Time: 14:35 rn 02/04 13:12 Order name: Magnesium; Complete Time: 14:35 02/04 13:12 Order name: NT PRO-BNP; Complete Time: 14:35 rn 02/04 13:12 Order name: PT-INR; Complete Time: 14:43 02/04 13:12 Order name: Ptt, Activated; Complete Time: 14:43 02/04 13:12 Order name: Troponin HS; Complete Time: 14:35 02/04 13:12 Order name: COVID-19 Ag + Flu A+B Ag; Complete Time: 14:35 02/04 13:12 Order name: XRAY CXR (1 view); Complete Time: 14:35 02/04 13:12 Order name: Cardiac monitoring; Complete Time: 13:14 02/04 13:12 Order name: EKG - Nurse/Tech; Complete Time: 13:14 02/04 13:12 Order name: IV Saline Lock; Complete Time: 13:14 02/04 13:12 Order name: Labs collected and sent; Complete Time: 13:14 02/04 13:12 Order name: O2 Per Protocol; Complete Time: 13:14 02/04 13:12 Order name: O2 Sat Monitoring; Complete Time: 13:02/04 13:45 Order name: Labs - recollect needed: recollect the pt ptt/ hemolyzed per Katarina in the eb lab; Complete Time: 14:04 EC:50 Rate is 76 beats/min. Rhythm is regular. QRS Nadeau is Normal. PA interval is normal. QRS rn interval is normal. QT interval is normal. No Q waves. T waves are Normal. No ST changes noted. Clinical impression: Normal ECG. Interpreted by me. Reviewed by me. Administered Medications: No medications were administered Disposition Summary: 02/04/25 14:58 Discharge Ordered Notes: Location: Home rn Problem: new rn Symptoms: have improved rn Condition: Stable rn Diagnosis - Chest pain, unspecified rn - Dyspnea, unspecified rn Followup: rn - With: Private Physician - When: As needed - Reason: Recheck today's complaints, Re-evaluation by your physician Discharge Instructions: - Discharge Summary Sheet rn - Nonspecific Chest Pain, Adult rn - Pain Without a Known Cause rn - Shortness of Breath, Adult rn Forms: - Medication Reconciliation Form rn - Antibiotic turner machine - Prescription Opioid Use rn - Patient Portal Instructions rn - Leadership Thank You Letter rn Signatures: Dispatcher [employer] EDMS Theodore Moore MD MD rn Blanchard, Shelby, RN RN Moraima Casarez Clarissa RN RN cm10 Corrections: (The following items were deleted from the chart) 13:13 13:13 BASIC METABOLIC PANEL+C.LAB.BRZ ordered. EDMS EDMS 13:13 13:13 BLOOD CULTURE*+BA.LAB.BRZ ordered. EDMS EDMS 13:13 13:13 CBC+H.LAB.BRZ ordered. EDMS EDMS 13:13 13:13 HEPATIC FUNCTION+C.LAB.BRZ ordered. EDMS EDMS 13:13 13:13 MAGNESIUM+C.LAB.BRZ ordered. EDMS EDMS 13:13 13:13 PROBNP+C.LAB.BRZ ordered. EDMS EDMS 13:13 13:13 PROTIME (+INR)+COAG.LAB.BRZ ordered. EDMS EDMS 13:13 13:13 PTT, ACTIVATED+COAG.LAB.BRZ ordered. EDMS EDMS 13:13 13:13 Troponin High Sensitivity+C.LAB.BRZ ordered. EDMS EDMS 13:13 13:13 COVID-19 Ag + Flu A+B Ag+I.LAB.BRZ ordered. EDMS EDMS 13:13 13:13 Chest Single View+RAD.RAD.BRZ ordered. EDMS EDMS
--- NOTE | 2025-02-06 12:13 | EKG ---
Test Date: 2025-02-04 Test Time: 13:12:42 Corn Grower: SB MEASUREMENT RESULTS: Intervals: Rate: 76 IN: 176 QRSD: 92 QT: 434 QTc: 488 [place]: P: 39 IN: 176 QRS: 19 T: 30 INTERPRETIVE STATEMENTS: Normal sinus rhythm Normal ECG Compared to ECG 04/23/2023 10:58:57 No significant changes Electronically Signed On 02-06-25 12:08:35 CDT by Saqib Solis
[2025-02-06 19:46] VITALS: TEMP 97.8; O2SAT 100
[2025-02-06 19:53] VITALS: BP 130/65
== END 2025-02-04 15:16 | disposition home or self-care (01) ==
LOC: ER 12:57
DX: R07.9 Chest pain, unspecified (principal); R06.00 Dyspnea, unspecified; R53.1 Weakness; R53.83 Other fatigue; I10 Essential (primary) hypertension; Z11.52 Encounter for screening for COVID-19
CPT/HCPCS: 36415; 71045; 80048; 80076; 83735; 83880; 84484; 85025; 85610; 85730; 87040; 87428; 93005; 99284